=== PATIENT | female | born 1945 | race Caucasian/White ===

== ENCOUNTER 2018-03-04 13:10 | Inpatient (IN) | payer MEDICARE ==
[~2018-03-04] VITALS: Ht 160 cm; Wt 64.0 kg
[~2018-03-04 13:10] MED LIST: AMLODIPINE-ATO1 EAC6 PO; CITALOPRAM HBR20 MG PO; METOPROLOL TART50 MG PO
--- OUTSIDE RECORDS SUMMARY | 2018-03-04 13:13 | XMS REPORT | Continuity of Care Document ---
Author Author Juaquin sapna [facility] Interface Address Unknown Phone Unavailable Problems Problem Status Onset Date Classification Date Reported Comments Source M54.16 - "RADICULOPATHY, LUMBAR REGION" Active 11/21/2016 [facility] [place] LEFT BREAST PAIN Active 09/17/2012 [facility] SYMPTOMS IN BREAST NEC Active [facility] Medications Medication Details Route Status Patient Instructions Ordering Provider Order Date Source Allergies, Adverse Reactions, Alerts Substance Category Reaction Severity Reaction type Status Date Reported Comments Source Tetrix Cream Assertion Drug allergy Active [facility] [place] Immunizations Immunization Date Given Site Status Last Updated Comments Source Results Order Name Results Value Reference Range Date Interpretation Comments Source Spine lumbar wo contrast MRI Spine lumbar wo contrast MRI MRI LUMBAR SPINE WITHOUT CONTRAST 11/27/2016 1:10 PM CDT COMPARISON: 11/02/2009 radiograph exam. TECHNIQUE: Sagittal T1, sagittal T2 with fat saturation, axial T1 and axial T2 images were obtained. No intravenous gadolinium was given. FINDINGS: The conus medullaris terminates at the L1-L2 level. Lower thoracic spine ligamenta flava redundancy with mild central canal stenosis is present. T12-L1: Unremarkable. L1-L2: 3.9 mm disc bulge is seen with moderate ligamenta flava redundancy and mild central canal stenosis. Minimal bilateral foraminal stenosis due to disc osteophyte complex encroachment. L2-L3: 4 mm disc bulge with moderate thecal sac stenosis, which measures approximately 7 mm AP dimension. Mild bilateral foraminal stenosis due to disc osteophyte complex encroachment. L3-L4: 3 mm disc bulge with mild to moderate central canal stenosis. Mild left foraminal stenosis due to disc osteophyte complex encroachment with mild mass effect on left L3 exiting nerve root. L4-L5: 3 mm disc bulge with moderate ligamenta flava redundancy and moderate thecal sac stenosis. Mild bilateral foraminal stenosis. L5-S1: Moderate disc narrowing is present. 6 mm right paracentral disc extrusion is present, superimposed on the 4 mm disc bulge. Mass effect on the left S1 and S2 descending nerve roots is present. Mild central canal stenosis. Severe bilateral foraminal stenosis with mass effect on bilateral L5 nerve roots. Bilateral renal probable peripelvic cysts are present. IMPRESSION: 1. Multilevel disc degenerative disease and spondylosis. 2. L5-S1 left paracentral extrusion with mass effect on the left S1 and S2 descending nerve roots. Mild central canal stenosis. Severe bilateral foraminal stenosis as above. 3. L2-L3, L3-L4, L4-L5 mild to moderate thecal sac stenosis. Mild foraminal stenosis at these levels with mild mass effect on left L3 exiting nerve root. 11/27/2016 - - Read by: Beau Linares MD Dictated Date/time: 11/27/16 15:46 Electronically Signed by: Beau Linares MD 11/27/16 15:52 FINAL REPORT ANGEL LUIS Iqbal Breast US Breast US - BREAST US/L ULTRASOUND OF THE LEFT BREAST : 10/02/2012 CLINICAL: Pain. Comparison is made to exam dated: 10/02/2012 mammogram - [facility]. Color flow and real-time ultrasound were performed on the left breast. Rollins scale images of the real-time examination were reviewed. There is a small benign intramammary node left breast at 2 o'clock that correlates with mammography. No abnormalities were seen sonographically in the left axilla. IMPRESSION: BENIGN There is no sonographic evidence of malignancy. There is no mammographic or sonographic abnormality seen in the left breast to correspond with the pain which likely represents normal fibroglandular tissue, however clinical followup is recommended. A screening mammogram in one year is recommended. SUMMARY: Prior mammograms would be of added benefit to document [place] [facility]. This aids in establishing benignity. The patient should make additional efforts to locate her prior exams. An addendum will be made if additional films are provided. SL: 13. Radha nazario/ye:10/02/2012 13:27:16 Deli Cutter Slicer: Rachel Acharya, [facility] letter sent: Normal exam Ultrasound BI-RADS: 2 Benign 10/02/2012 - - Read by: Radha Denton Dictated Date/time: 10/02/12 13:27 Electronically Signed by: Radha Denton MD 10/02/12 13:27 FINAL REPORT [facility] Digital Mammo DX [facility] [place] Digital Mammo DX [facility] [place] - DIGITAL MAMMO DX [facility] [place] BILATERAL DIGITAL DIAGNOSTIC MAMMOGRAM WITH CAD: 10/02/2012 CLINICAL: Pain In Left Breast. Current study was evaluated with a Computer Aided Detection (CAD) system. The patient has comparison exams at an outside facility but did not bring them with her. She is requesting that they be obtained for her as she has signed a release. The tissue of both breasts is predominantly fatty. There is a benign calcification in the right breast. There also is a benign intramammary node in the left breast. No significant masses, calcifications, or other findings are seen in either breast. IMPRESSION: INCOMPLETE: NEEDS ADDITIONAL IMAGING EVALUATION There is no mammographic abnormality seen in the left breast to correspond with the pain, however ultrasound is recommended. SUMMARY: Prior mammograms would be of added benefit to document [place] [facility] stability. This aids in establishing benignity. The patient should make additional efforts to locate her prior exams. An addendum will be made if additional films are provided, and the patient may need to return for additional imaging. Ultrasound will be performed at this time; please see dedicated separate report. SL: 13. Radha nazario/:10/02/2012 13:27:36 Deli Cutter Slicer: Niurka Ace [facility] Mammogram BI-RADS: 0 Indeterminate 10/02/2012 - - Read by: Radha Denton Dictated Date/time: 10/02/12 13:27 Electronically Signed by: Radha Denton MD 10/02/12 13:27 FINAL REPORT [facility] Vital Signs Vital Sign Value Date Comments Source Encounters Location Location Details Encounter Type Encounter Number Reason For Visit Attending Provider ADM Date DC Date Status Source [facility] Outpatient [id number] LEFT BREAST PAIN . AMIR GHEBRANIOUS 10/02/2012 Active [facility] [place] [facility] [id number] Chucky Laya 11/27/2016 11/28/2016 ANGEL LU[facility] [place] Procedures Procedure Code Date Perfomer Comments Source
--- OUTSIDE RECORDS SUMMARY | 2018-03-04 13:14 | XMS REPORT | CCD ---
Author Author Auto Generated Organization [facility] Address Unknown Phone Unavailable Care Team Providers Care Arts And Crafts Teacher Name Role Phone Gina Chow RP Allergies, Adverse Reactions, Alerts Substance Reaction Status Tetrix Cream Active
--- OUTSIDE RECORDS SUMMARY | 2018-03-04 13:14 | XMS REPORT | Summary of Care ---
Author Author [facility] [place] Organization [facility] [place] Address Unknown Phone Unavailable Encounter HQ Encntr_alias(FIN) [id number] Date(s): 11/27/16 - 11/27/16 [facility] [place] [address] [place] [phone] Discharge Disposition: Home or Self Care Attending Physician: Chucky Asif MD Vital Signs No data available for this section Problem List No data available for this section Allergies, Adverse Reactions, Alerts Substance Reaction Severity Status Tetrix Cream Active Medications No data available for this section Results No data available for this section Immunizations No data available for this section Procedures No data available for this section Social History No data available for this section Assessment and Plan No data available for this section
--- OUTSIDE RECORDS SUMMARY | 2018-03-04 13:14 | XMS REPORT ---
Author [facility] Address Unknown Phone Unavailable Care Team Providers Care Senior Network Architect Name Role Phone Lorenzo SIU Unavailable Unavailable Problems This patient has no known problems. Allergies, Adverse Reactions, Alerts This patient has no known allergies or adverse reactions. Medications This patient has no known medications. Results Test Description Test Time Test Comments Text Results Atomic Results Result Comments CT MAX/FAC.PARANASAL SINUS WO 2017-11-06 07:29:00 [facility] [address] [place], [place] [address] Patient Name: FLAVIO RUANO MR #: [id number] : 1945 Age/Sex: 72/F Req #: [id number] Adm Physician: Ordered by: TEA SIU MD Report #: [id number] Location: [facility] Room/Bed: Procedure: [id number] HOPD/CT MAX/FAC.PARANASAL SINUS WO Exam Date: 11/05/17 Exam Time: 1708 REPORT STATUS: Signed Examination: CT Face without Contrast History:Facial injury Comparison studies: None Technique: Axial images were obtained through the maxillofacial region. Coronal and sagittal reconstructions obtained from the axial data. Dose modulation, iterative reconstruction, and/or weight based adjustment of the mA/kV was utilized to reduce the radiation dose to as low as reasonably achievable. Intravenous contrast: None Findings: Soft tissues: Moderate-sized right periorbital and premalar hematoma. Bones: No fractures or bony abnormalities. Orbits: Globes: Intact Extra or intraconal abnormalities: None. Paranasal sinuses: Clear. IMPRESSION: 1. No acute facial abnormality. 2. Moderate size right periorbital and premalar hematoma. A preliminary verbal report was provided by Dr. Herrera to Dr. Siu on November 05, 2017 at 1610 hours. Signed by: Dr. Lisset Herrera M.D. on 11/06/2017 7:34 AM Dictated By: LISSET GOODWIN MD 3 Transcribed By: SANTIAGO on 11/06/17733 COPY TO: TEA SIU MD [facility] 2017-11-06 07:27:00 [place] [address] Patient Name: FLAVIO RUANO MR #: [id number] : 1945 Age/Sex: 72/F Req #: [id number] Adm Physician: Ordered by: TEA SIU MD Report #: [id number] Location: [facility] Room/Bed: Procedure: [id number] [facility] Exam Date: 11/05/17 Exam Time: 1708 REPORT STATUS: Signed Examination: CT head without contrast Clinical Indication: Head and face injury. Technique: Transaxial noncontrast images from the skull base through the vertex were obtained. Sagittal and coronal reformatted images were done. Dose modulation, iterative reconstruction, and/or weight based adjustment of the mA/kV was utilized to reduce the radiation dose to as low as reasonably achievable. Comparison: None. Findings: Scalp: No abnormalities. Bones: Intact. No fractures. No blastic or lytic lesions. Brain sulci: Appropriate for patient's age. Ventricles: Normal in size and configuration. No hydrocephalus. Extra-axial space: No abnormalities. Parenchyma: Again demonstrated are mild confluent areas of hypoattenuation in the periventricular and subcortical white matter, nonspe cific. No masses, hemorrhage, or acute or chronic cortical based vascular insults. Suprasellar region: No abnormalities. Craniocervical junction: The foramen magnum is patent. No Chiari one malformation. Impression: 1. No acute intracranial abnormality. 2. Mild chronic microvascular ischemic change. A preliminary verbal report was provided by Dr. Herrera to Dr. Siu on November 05, 2017 at 1610 hours. Signed by: Dr. Lisset Herrera M.D. on 11/06/2017 7:29 AM Dictated By: LISSET GOODWIN MD 8 Transcribed By: SANTIAGO on 11/06/17728 COPY TO: TEA SIU MD
[2018-03-04] MEDS ORDERED: SODIUM CHLORIDE 0.9% 1000ML 1,000 ML IV STA ×2 (13:26→14:58)
--- NOTE | 2018-03-04 13:44 | NUR ---
X-ray at bedside.
--- NOTE | 2018-03-04 13:47 | NUR ---
X-ray leaves bedside.
[2018-03-04 13:49] LABS: BASOPHILS # (AUTO) 0.1 (0.0-0.1); BASOPHILS % 0.7 % (0.0-1.0); EOSINOPHILS # (AUTO) 0.2 (0.0-0.4); EOSINOPHILS % 1.9 % (0.0-6.0); HEMATOCRIT 43.6 % (34.2-44.1); HEMOGLOBIN 15.3 g/dL (12.0-16.0); LYMPHOCYTES # (AUTO) 1.4 (1.0-3.2); LYMPHOCYTES % 15.3 % (18.0-39.1); MEAN CORPUSCULAR HEMOGLOBIN 30.7 pg (28-32); MEAN CORPUSCULAR HGB CONC 35.1 g/dL (31-35); MEAN CORPUSCULAR VOLUME 87.4 fL (81-99); MONOCYTES # (AUTO) 0.6 (0.2-0.8); MONOCYTES % 6.9 % (4.4-11.3); NEUTROPHILS # (AUTO) 6.6 (2.1-6.9); NEUTROPHILS % 74.6 % (38.7-80.0); PLATELET COUNT 214 x10e3/uL (140-360); RED BLOOD COUNT 4.99 x10e6/uL (3.6-5.1); RED CELL DISTRIBUTION WIDTH 12.3 % (11.7-14.4)
[2018-03-04] MEDS: SODIUM CHLORIDE 0.9% 1000ML 1,000 ML IV SCH ×2 (13:50→19:40)
[2018-03-04 14:01] LABS: INR 0.96; PROTHROMBIN TIME 13.7 seconds (11.9-14.5)
[2018-03-04 14:02] LABS: PARTIAL THROMBOPLASTIN TIME 25.8 seconds (23.8-35.5)
--- NOTE | 2018-03-04 14:08 | Diagnostic Imaging Report ---
EXAMINATION: CHEST SINGLE (PORTABLE) COMPARISON: None FINDINGS: TUBES and LINES: None. LUNGS: Lungs are well inflated. Lungs are clear. There is no evidence of pneumonia or pulmonary edema. PLEURA: No pleural effusion or pneumothorax. HEART AND MEDIASTINUM: The cardiomediastinal silhouette is unremarkable. Atherosclerotic aortic calcifications. BONES AND SOFT TISSUES: No acute osseous lesion. Soft tissues are unremarkable. UPPER ABDOMEN: No free air under the diaphragm. IMPRESSION: No acute radiographic abnormality. Signed by: Dr. Isaias Lemon MD on 03/04/2018 2:04 PM
[2018-03-04 14:09] LABS: ALBUMIN 3.8 g/dL (3.5-5.0); ALBUMIN/GLOBULIN RATIO 1.2 (0.8-2.0); ANION GAP 14.5 mmol/L (8-16); CALCIUM 9.3 mg/dL (8.4-10.2); CREATININE, SERUM 1.1 mg/dL (0.57-1.11); MAGNESIUM 2.2 MG/DL (1.3-2.1); POTASSIUM 3.5 mmol/L (3.5-5.1)
[2018-03-04] MEDS ORDERED: METOPROLOL TARTRATE INJ 1 MG/ML VIAL ONE (14:12)
[2018-03-04 14:16] LABS: CREATINE KINASE MB 1.1 ng/mL (0-5.0)
[2018-03-04] MEDS ORDERED: METOPROLOL TARTRATE INJ 1 MG/ML VIAL IV ONE ×2 (14:30→15:15)
[2018-03-04] MEDS ORDERED: DIGOXIN INJ 0.25 MG/ML 2 ML AMP IV ONE ×4 (15:30→18:15)
[2018-03-04] MEDS ORDERED: ENOXAPARIN SODIUM INJ 100 MG/ML SYR SC SCH (15:45)
[2018-03-04] MEDS: ENOXAPARIN SOD INJ 60 MG/0.6 ML SYR SC SCH (15:54)
[2018-03-04 18:11] LABS: CLARITY,URINE CLEAR (CLEAR); COLOR,URINE YELLOW (YELLOW); LEUKOCYTE ESTERASE ,URINE NEGATIVE (NEGATIVE); NITRITE,URINE NEGATIVE (NEGATIVE)
[2018-03-04 18:12] LABS: BILIRUBIN,URINE NEGATIVE (NEGATIVE); KETONES,URINE NEGATIVE (NEGATIVE); PROTEIN,URINE DIPSTICK NEGATIVE (NEGATIVE); URINE UROBILINOGEN 0.2 mg/dL (0.2 - 1)
[2018-03-04] MEDS ORDERED: DILTIAZEM HCL 5 MG/ML 5 ML VIAL IV STA (18:27)
[2018-03-04] MEDS ORDERED: SODIUM CHLORIDE 0.9% 1000ML 1,000 ML IV SCH (18:30)
[2018-03-04 18:37] LABS: BACTERIA,URINE FEW /HPF; EPITHELIAL CELLS,URINE FEW /LPF; RBC,URINE 0-5 /HPF (0-5); WBC,URINE (MAN) 0-5 /HPF (0-5)
[2018-03-04] MEDS ORDERED: MORPHINE SULFATE 2 MG/ML SYR 1ML IV PRN (18:45)
[2018-03-04] MEDS ORDERED: AMIODARONE HCL 150MG 100 ML ONE (18:52)
--- NOTE | 2018-03-04 18:55 | NUR ---
RECEIVED PT IN BED AT THIS TIME, NO C/O PAIN/DISCOMFORT. PLAN OF CARE DISCUSSED WITH PT. AMNIODARONE LOADING DOSE ADMINISTERED AND MAINTAINANCE DRIP STARTED. RT FA PIV 20G STARTED, PT TOLERATED WELL. CALL LIGHT WITHIN REACH, ECOURAGED TO CALL FOR ASSISTANCE.
[2018-03-04] MEDS ORDERED: AMIODARONE 900MG 500 ML IV ONE (19:06)
--- NOTE | 2018-03-04 19:25 | NUR ---
ZOFRAN ADMINISTERED AT THIS TIME, PT THEW UP SMALL AMOUNT OF YELLOW EMESIS, WILL CONTINUE TO MONITOR.
[2018-03-04] MEDS: ONDANSETRON HCL INJ 2MG/ML 2ML 2 MG/ML VIAL IV PRN (19:29)
[2018-03-04] MEDS ORDERED: AMIODARONE HCL 900 MG in DEXTROSE 5% 500ML 500 ML IV SCH (19:30)
[2018-03-04] MEDS ORDERED: AMIODARONE HCL 150 MG/100 ML BAG IV ONE (19:30)
[2018-03-04] MEDS ORDERED: ATENOLOL50 MG PO (19:55)
--- NOTE | 2018-03-04 20:27 | NUR ---
REPORT CALLED TO [facility] AT THIS TIME. AWAITING BED IN ROOM.
[2018-03-04 21:00] VITALS: BP 141/69
[2018-03-04 22:50] LABS: CREATINE KINASE MB 1.8 ng/mL (0-5.0)
[2018-03-05] VITALS (21 sets, daily range): BP systolic 106–147; BP diastolic 59–113
[2018-03-05] MEDS: ONDANSETRON HCL INJ 2MG/ML 2ML 2 MG/ML VIAL IV PRN ×4 (00:30→20:36)
[2018-03-05] MEDS: METRONIDAZOLE 500MG/NS 100ML 100 ML IV SCH ×4 (00:30→17:59)
[2018-03-05] MEDS: MORPHINE SULFATE INJ 4 MG/ML INJ 1ML IV PRN ×2 (01:05→04:11)
[2018-03-05] MEDS: SODIUM CHLORIDE 0.9% 1000ML 1,000 ML IV SCH ×3 (01:33→18:36)
[2018-03-05] MEDS: ENOXAPARIN SOD INJ 60 MG/0.6 ML SYR SC SCH ×2 (04:02→15:58)
[2018-03-05 04:50] LABS: BASOPHILS % 0.3 % (0.0-1.0); EOSINOPHILS # (AUTO) 0.1 (0.0-0.4); EOSINOPHILS % 0.6 % (0.0-6.0); HEMATOCRIT 38.5 % (34.2-44.1); HEMOGLOBIN 13.3 g/dL (12.0-16.0); LYMPHOCYTES # (AUTO) 1.3 (1.0-3.2); LYMPHOCYTES % 13.2 % (18.0-39.1); MEAN CORPUSCULAR HEMOGLOBIN 30.2 pg (28-32); MEAN CORPUSCULAR HGB CONC 34.5 g/dL (31-35); MEAN CORPUSCULAR VOLUME 87.5 fL (81-99); MONOCYTES # (AUTO) 0.6 (0.2-0.8); MONOCYTES % 6.1 % (4.4-11.3); NEUTROPHILS % 79.6 % (38.7-80.0); PLATELET COUNT 158 x10e3/uL (140-360); RED CELL DISTRIBUTION WIDTH 12.1 % (11.7-14.4)
[2018-03-05 05:23] LABS: CREATINE KINASE MB 2.1 ng/mL (0-5.0)
[2018-03-05 05:43] LABS: ANION GAP 13.4 mmol/L (8-16); BLOOD UREA NITROGEN 12 mg/dL (7-26); BUN/CREATININE RATIO 16 (6-25); CALCIUM 7.7 mg/dL (8.4-10.2); CARBON DIOXIDE 19 mmol/L (22-29); CHLORIDE 109 mmol/L (98-107); CREATININE, SERUM 0.77 mg/dL (0.57-1.11); EST GLOMERULAR FILTRATION RATE > 60 ML/MIN (60-); GLUCOSE 116 mg/dL (74-118); POTASSIUM 3.4 mmol/L (3.5-5.1); SODIUM 138 mmol/L (136-145)
--- NOTE | 2018-03-05 06:21 | NUR ---
CALLED TO ENSURE DR OLIVAS WAS INFORMED OF NEW PATIENT CONSULT SPOKE TO DYLLAN THE ANSWERING SERVICE. CALLED AND LEFT MESSAGE ON ANSWERING SERVICE, NO LIVE PERSON I SPOKE TO. WILL INFORM ONCOMING NURSE TO MAKE SURE MESSAGE FOR CONSULT TO DR WANG WAS RECEIVED
--- NOTE | 2018-03-05 06:30 | NUR ---
DR ANABELLE SOTO ROUNDED. VERBAL ORDER GIVEN TO ME AND ORDER WAS READ BACK. LOPRESSOR 25MG PO Q6H AND LOPRESSOR 5MG IV Q2H PRN FOR HEART RATE GREATER THAN 120
--- NOTE | 2018-03-05 06:38 | Diagnostic Imaging Report ---
EXAMINATION: CHEST SINGLE (PORTABLE) COMPARISON: 03/04/2018 INDICATION: Chest burning. FINDINGS: TUBES and LINES: None. LUNGS: Lungs are well inflated. Lungs are clear. There is no evidence of pneumonia or pulmonary edema. PLEURA: No pleural effusion or pneumothorax. HEART AND MEDIASTINUM: The cardiomediastinal silhouette is unremarkable. Atherosclerotic aortic calcifications. BONES AND SOFT TISSUES: No acute osseous lesion. Lower cervical fusion hardware. Soft tissues are unremarkable. UPPER ABDOMEN: No free air under the diaphragm. Eventration of the right hemidiaphragm, stable. Cholecystectomy clips. IMPRESSION: No acute radiographic abnormality. Signed by: DR. Patricio Ohara MD on 03/05/2018 6:35 AM
[2018-03-05 07:08] LABS: CHOL/HDL RATIO 3.6 (3.0-3.6)
[2018-03-05] MEDS ORDERED: DIATRIZOATE MEGL/DIATRIZOA SOD 30 ML BTL PO ONE (07:41)
--- NOTE | 2018-03-05 07:47 | NUR ---
SEE CHART FOR A PRINT OUT OF PATIENTs VITAL SIGNS
[2018-03-05] MEDS: METOPROLOL TARTRATE INJ 1 MG/ML VIAL IV PRN ×3 (08:36→20:49)
[2018-03-05] MEDS: FAMOTIDINE 20 MG/2 ML VIAL IV SCH ×2 (09:00→17:29)
[2018-03-05] MEDS: ASPIRIN 81 MG ENTERIC COATED PO SCH (09:00)
--- NOTE | 2018-03-05 09:54 | History and Physical ---
PRIMARY CARE PHYSICIAN: . CHIEF COMPLAINT: Burning symptoms in the chest wall. HISTORY OF PRESENT ILLNESS: This is a 73-year-old woman with a history of atrial fibrillation, now developing burning sensation in her mid chest region and continued diarrhea for the past 3 weeks. Her last colonoscopy was in 2015 at which time they found diverticulosis, colitis and polyps. The patient now admitted for further evaluation and management. Found to be in AFib with RVR here and started on medication regimen. Placed in the ICU. PAST MEDICAL HISTORY: Hypertension, atrial fibrillation, spinal stenosis, diverticulosis, colitis, colonic polyps, status post polypectomy, IBS. PAST SURGICAL HISTORY: Polypectomy, cholecystectomy, hysterectomy, right shoulder rotator cuff repair, tonsillectomy. ALLERGIES: PER ELECTRONIC MEDICAL RECORD. SOCIAL HISTORY: The patient is . No alcohol, illicit or cigarettes. MEDICATIONS: Per electronic medical record. REVIEW OF SYSTEMS: Denies any fever, chills or sweats. Denies any nausea or vomiting. Denies any headache, vision change, or skin rash. PHYSICAL EXAMINATION VITAL SIGNS: Reviewed. GENERAL: A tired appearing woman, resting in bed. HEENT: Anicteric. Pupils reactive to light. No oral lesions. CARDIOVASCULAR: Normal S1, S2. Rapid heart rate. LUNGS: Bilateral breath sounds. ABDOMEN: Soft, nondistended. She has mild tenderness in left lower quadrant. No rebound or guarding. EXTREMITIES: No edema or calf tenderness. NEUROLOGICAL: Alert and oriented times 3. Moving all extremities. SKIN: Dry. PSYCHIATRY: Normal affect. LABS: Reviewed. MEDICATIONS: Reviewed. ASSESSMENT: This is a 73-year-old woman with: 1. Atrial fibrillation with rapid ventricular response. 2. Chronic diarrhea. 3. Irritable bowel syndrome. 4. Acute kidney injury. 5. Hypokalemia. 6. Dehydration. 7. Hyperlipidemia. PLAN 1. Rate and rhythm control on medication. 2. Cardiology consultation. 3. Obtain CT scan of the abdomen and pelvis to evaluate for possible colitis. 4. Obtain stool for C. diff. 5. Rehydrate the patient. 6. Replace electrolytes. 7. Continue treatment for AFib with Lovenox and amiodarone. Add beta pema. 8. Continue Pepcid for GI prophylaxis. DISPOSITION: Follow up CT scan abdomen and pelvis. Rate control. Follow up cardiology recommendations. CRITICAL CARE TIME: More than 35 minutes. Job#: [id number] GE
[2018-03-05] MEDS: METOPROLOL TARTRATE 25 MG TAB PO SCH ×2 (12:00→18:00)
--- NOTE | 2018-03-05 12:51 | NUR ---
CASE MANAGEMENT INITIAL ASSESSMENT Waiter/Waitress Cabin Class to bedside to discuss plan of care with patient/family. CM/SW role and care transitions discussed. Anticipated discharge plan discussed along with duration of care. CM/SW discussed patients right to make decisions in care. CM/SW work hours given. Patient lives: Admit/Transfer: ER POA/Emergency contact: KAITLIN THOMPSON [phone] Current/Previous Home Health: NONE PCP/Follow-up Care: DR SOTO Current/Previous DME: NONE Other Services: NONE Employment Status: RETIRED Areas of Concerns: CARING FOR HER Referral Needs: NONE Education Needs: NONE IMM/ORTIZ given and signed (if applicable): ON ADMIT Goal for discharge:DC HOME SOON POSSIBLE TO CARE FOR CM/SW left business card at the bedside with contact information. Name and number was also written on the patients whiteboard. Patient verbalized understanding of discussion. CM will follow-up with ongoing discharge and transition of care needs.
[2018-03-05] MEDS ORDERED: IOPAMIDOL 370 MG/ML 200 ML INFUS..BTL INJ ONE (14:41)
[2018-03-05] MEDS ORDERED: SODIUM CHLORIDE 0.9% 50ML 50 ML ONE (14:41)
[2018-03-05 14:49] LABS: OCCULT BLOOD STOOL NEGATIVE (NEGATIVE)
[2018-03-05 15:21] LABS: CREATINE KINASE MB 3.1 ng/mL (0-5.0)
--- NOTE | 2018-03-05 15:41 | Diagnostic Imaging Report ---
ADDENDUM #1 ADDENDUM: Dose modulation, iterative reconstruction, and/or weight based adjustment of the mA/kV was utilized to reduce the radiation dose to as low as reasonably achievable. Signed by: Dr. Isaias Lemon MD on 03/05/2018 5:24 PM ORIGINAL REPORT EXAM: CT Abdomen and Pelvis WITH contrast INDICATION: Query colitis. COMPARISON: None. TECHNIQUE: Abdomen and pelvis were scanned utilizing a multidetector helical scanner from the lung base to the pubic symphysis after administration of IV contrast. Coronal and sagittal reformations were obtained. Routine protocol was performed. Scan was performed when during portal venous phase. IV CONTRAST: 100 mL of Isovue 370. ORAL CONTRAST: Water COMPLICATIONS: None RADIATION DOSE: Total DLP: 331.5 mGy*cm CTDIvol has been reviewed. It is below the limits set by the Radiation Protocol Committee (RPC). FINDINGS: LINES and TUBES: None. LOWER THORAX: Unremarkable HEPATOBILIARY: No evidence of focal lesion. There is intra- and extra- hepatic biliary dilation likely post cholecystectomy reservoir effect. SPLEEN: No splenomegaly. PANCREAS: No focal masses or ductal dilatation. ADRENALS: No adrenal nodules KIDNEYS/URETERS: Kidneys enhance symmetrically. There is mild right and moderate left hydronephrosis. No evidence of stone or solid mass. Subcentimeter bilateral renal hypodensities are too small to characterize, but likely represent cysts. GI TRACT: No evidence of wall thickening or distension. Appendix is normal. PELVIC ORGANS/BLADDER: Unremarkable. LYMPH NODES: No lymphadenopathy. VESSELS: Extensive atherosclerotic changes of the dominant aorta and branch vessels. There is a separate origin of the common hepatic artery and the splenic artery arising from the aorta. PERITONEUM / RETROPERITONEUM: No free air or fluid. BONES AND SOFT TISSUES: Degenerative changes of visualized spine without suspicious lytic or blastic lesions. CONCLUSION: No evidence of colitis. Mild right and moderate left hydronephrosis. No evidence of stone. Signed by: Dr. Isaias Lemon MD on 03/05/2018 3:38 PM
--- NOTE | 2018-03-05 17:03 | Consultation ---
DATE OF CONSULTATION: March 05, 2018 CARDIOLOGY CONSULTATION REASON FOR CONSULTATION: AFib with RVR. CHIEF COMPLAINT: Diarrhea. HISTORY OF PRESENT ILLNESS: Patient is a 73-year-old female with history of atrial fibrillation. Not on anticoagulation who has been having abdominal pain and diarrhea for the past several weeks. Patient finally presented for further management and admission due to ongoing diarrhea that is not showing any signs of improvement. Denies any fevers, chills, chest pain or heart failure symptoms. Patient was found to be an AFib with RVR with heart rates in the 150s and higher. Patient says that she has been told in the past that she has atrial fibrillation but was not taking any medications for this. PAST MEDICAL HISTORY 1. Hypertension. 2. Atrial fibrillation. 3. Spinal stenosis. 4. Diverticulitis. 5. Colitis. 6. Colonic polyps. 7. Inflammatory bowel disease. PAST SURGICAL HISTORY 1. Polypectomy. 2. Cholecystectomy. 3. Hysterectomy. 4. Tonsillectomy. SOCIAL HISTORY: Does not smoke, drink or use illicit drugs. FAMILY HISTORY: No family history of early CAD or sudden cardiac . OUTPATIENT MEDICATIONS: Reviewed. REVIEW OF SYSTEMS: Ten point review of systems was performed and is negative other than what is mentioned in history of present illness. PHYSICAL EXAMINATION: VITALS: Temperature 97.7, pulse 132, respiratory rate 17, blood pressure 119/77, satting 96% on room air. GENERAL: Elderly white female in no acute distress. Ill-appearing. CARDIOVASCULAR: Tachycardic, irregular. No murmurs, rubs, or gallops. Palpable carotid pulses. Palpable radial pulses. No lower extremity edema or varicosities. RESPIRATORY: Lungs are clear to auscultation bilaterally. ABDOMEN: Soft, mildly tender diffusely, nondistended. NEURO AND PSYCH: Alert and oriented to person, place, and time. Normal affect. INPATIENT MEDICATIONS: Reviewed. LABORATORY DATA: Reviewed. Troponins negative x2. IMAGING DATA: Reviewed. Chest x-ray shows no acute thoracic abnormality. A CT abdomen and pelvis is pending. TELEMETRY DATA: Reviewed. Shows atrial fibrillation with RVR with heart rates in the 140s to 160s. ASSESSMENT AND PLAN: Atrial fibrillation with rapid ventricular response. Continue intravenous amiodarone and intravenous metoprolol. Patient started on metoprolol 25 mg p.o. q.6 hours. Echocardiogram ordered and is pending. Patient is on intravenous Lovenox, therapeutic dose, for anticoagulation. Will need long-term anticoagulation once rate controlled is achieved and all procedures are completed. Thank you for this consult. Will continue to follow. Job#: [id number] KHURRAM
[2018-03-05] MEDS ORDERED: POTASSIUM CHLORIDE 20 MEQ TAB CR PO STA (17:54)
[2018-03-05] MEDS ORDERED: AMIODARONE HCL 900 MG in DEXTROSE 5% 500ML 500 ML IV SCH (18:00)
--- NOTE | 2018-03-05 18:00 | NUR ---
Dr. Alberto Limon called regarding persistent heart rate in 130's and new orders received to increase Amiodarone drip to 1mg/hr. Will continue to monitor.
--- NOTE | 2018-03-05 20:03 | NUR ---
Results of CT ABD read to Dr. Julian, no new orders regarding CT. New orders received for anxiety per pt request.
[2018-03-05] MEDS ORDERED: ALPRAZOLAM 0.25 MG TAB PO PRN (20:15)
[2018-03-05] MEDS ORDERED: BISACODYL 5 MG TAB EC PO ONE (23:45)
[2018-03-06] VITALS (21 sets, daily range): BP systolic 122–158; BP diastolic 63–110
[2018-03-06] MEDS: METOPROLOL TARTRATE 25 MG TAB PO SCH ×3 (00:12→18:00)
[2018-03-06] MEDS: METRONIDAZOLE 500MG/NS 100ML 100 ML IV SCH ×4 (00:12→18:00)
[2018-03-06] MEDS ORDERED: BISACODYL 5 MG TAB EC PO ONE ×3 (00:30→01:30)
[2018-03-06] MEDS: SODIUM CHLORIDE 0.9% 1000ML 1,000 ML IV SCH ×3 (00:55→18:36)
[2018-03-06] MEDS ORDERED: CITRATE OF MAGNESIA 300ML BOTTLE PO ONE ×2 (01:00→05:00)
[2018-03-06] MEDS: ENOXAPARIN SOD INJ 60 MG/0.6 ML SYR SC SCH ×2 (02:36→16:00)
[2018-03-06] MEDS: METOPROLOL TARTRATE INJ 1 MG/ML VIAL IV PRN (03:40)
[2018-03-06 04:46] LABS: BASOPHILS # (AUTO) 0.1 (0.0-0.1); BASOPHILS % 0.5 % (0.0-1.0); EOSINOPHILS # (AUTO) 0.1 (0.0-0.4); EOSINOPHILS % 1.4 % (0.0-6.0); HEMATOCRIT 37.3 % (34.2-44.1); HEMOGLOBIN 13.4 g/dL (12.0-16.0); LYMPHOCYTES # (AUTO) 1.3 (1.0-3.2); LYMPHOCYTES % 13.9 % (18.0-39.1); MEAN CORPUSCULAR HEMOGLOBIN 30.6 pg (28-32); MEAN CORPUSCULAR HGB CONC 35.9 g/dL (31-35); MEAN CORPUSCULAR VOLUME 85.2 fL (81-99); MONOCYTES # (AUTO) 0.8 (0.2-0.8); MONOCYTES % 8.2 % (4.4-11.3); NEUTROPHILS % 75.5 % (38.7-80.0); PLATELET COUNT 157 x10e3/uL (140-360); RED BLOOD COUNT 4.38 x10e6/uL (3.6-5.1)
[2018-03-06 05:11] LABS: BLOOD UREA NITROGEN 5 mg/dL (7-26); BUN/CREATININE RATIO 7 (6-25); CARBON DIOXIDE 20 mmol/L (22-29); CHLORIDE 105 mmol/L (98-107); CREATININE, SERUM 0.72 mg/dL (0.57-1.11); EST GLOMERULAR FILTRATION RATE > 60 ML/MIN (60-); GLUCOSE 112 mg/dL (74-118); SODIUM 133 mmol/L (136-145)
[2018-03-06] MEDS ORDERED: POTASSIUM CHLORIDE 20MEQ/100ML 200 ML IV ONE (06:45)
--- NOTE | 2018-03-06 07:14 | NUR ---
IM- Progress Note O/N; no events REVIEW OF SYSTEMS: Denies any fever, chills or sweats. Denies any nausea or vomiting. Denies any headache, vision change, or skin rash. PHYSICAL EXAMINATION VITAL SIGNS: Reviewed. GENERAL: A tired appearing woman, resting in bed. HEENT: Anicteric. Pupils reactive to light. No oral lesions. CARDIOVASCULAR: Normal S1, S2. Rapid heart rate. LUNGS: Bilateral breath sounds. ABDOMEN: Soft, nondistended. She has mild tenderness in left lower quadrant. No rebound or guarding. EXTREMITIES: No edema or calf tenderness. NEUROLOGICAL: Alert and oriented times 3. Moving all extremities. SKIN: Dry. PSYCHIATRY: Normal affect. LABS: Reviewed. MEDICATIONS: Reviewed. ASSESSMENT: This is a 73-year-old woman with: 1. Atrial fibrillation with rapid ventricular response. 2. Chronic diarrhea. 3. Irritable bowel syndrome. 4. Acute kidney injury. 5. Hypokalemia. 6. Dehydration. 7. Hyperlipidemia. PLAN 1. Rate and rhythm control on medication. 2. Cardiology consultation. 3. Obtain CT scan of the abdomen and pelvis to evaluate for possible colitis. 4. Obtain stool for C. diff. 5. Rehydrate the patient. 6. Replace electrolytes. 7. Continue treatment for AFib with Lovenox and amiodarone. Add beta pema. 8. Continue Pepcid for GI prophylaxis. DISPOSITION: Follow up CT scan abdomen and pelvis. Rate control. Follow up cardiology recommendations. CRITICAL CARE TIME: More than 35 minutes. 03/06/18 CT no colitis; replace K; endoscopy pending; f/u echo. Bryn Julian MD, PhD.
[2018-03-06] MEDS: POTASSIUM CHLORIDE 20MEQ/100ML 100 ML IV SCH ×2 (08:30→10:00)
[2018-03-06] MEDS: ASPIRIN 81 MG ENTERIC COATED PO SCH (09:00)
[2018-03-06] MEDS: DULOXETINE HCL 30 MG DELAYED RELEASE PO SCH (09:00)
[2018-03-06] MEDS: FAMOTIDINE 20 MG/2 ML VIAL IV SCH ×2 (09:34→17:01)
[2018-03-06 10:03] LABS: C DIFFICILE TOXIN A&B AMP PROB NEGATIVE (NEGATIVE)
[2018-03-06] MEDS: BISACODYL 5 MG TAB EC PO SCH ×3 (14:00→21:33)
[2018-03-06 16:52] LABS: ANION GAP 11.1 mmol/L (8-16); BLOOD UREA NITROGEN < 5 mg/dL (7-26); CALCIUM 8.2 mg/dL (8.4-10.2); CARBON DIOXIDE 18 mmol/L (22-29); CHLORIDE 109 mmol/L (98-107); CREATININE, SERUM 0.75 mg/dL (0.57-1.11); EST GLOMERULAR FILTRATION RATE > 60 ML/MIN (60-); GLUCOSE 114 mg/dL (74-118); POTASSIUM 3.1 mmol/L (3.5-5.1); SODIUM 135 mmol/L (136-145)
[2018-03-06 16:54] LABS: BUN/CREATININE RATIO 7 (6-25)
[2018-03-06] MEDS ORDERED: POTASSIUM CHLORIDE 20MEQ/100ML 400 ML IV ONE (19:30)
--- NOTE | 2018-03-06 19:30 | NUR ---
Received patient stable, due for a colonoscopy tomorrow, no complaints raised, diarrhea still murky
--- NOTE | 2018-03-06 21:43 | Progress Note ---
DATE: March 06, 2018 CARDIOLOGY PROGRESS NOTE SUBJECTIVE: No major events overnight. Ongoing colonoscopy prep. OBJECTIVE: VITAL SIGNS: Temperature afebrile, pulse 70, respiratory rate 20, blood pressure 130/91, satting 96% on room air. GENERAL: Elderly female in no acute distress. CARDIOVASCULAR: Regular rate and rhythm. No murmurs, rubs, or gallops. LUNGS: Clear to auscultation bilaterally. ABDOMEN: Soft, nontender, nondistended. NEURO AND PSYCH: Alert and oriented to person, place, and time. Normal affect. INPATIENT MEDICATIONS: Reviewed. LABORATORY DATA: Reviewed. IMAGING DATA: Reviewed. TELEMETRY DATA: Reviewed, intermittently converting to sinus rhythm. ASSESSMENT: Atrial fibrillation with rapid ventricular response. PLAN: Continue IV amiodarone for now. Increase oral metoprolol to 50 mg q.6h. Echocardiogram reviewed, shows normal LV function. Based on the normal echo and nonischemic EKG, patient will be low risk for colonoscopy procedure from a cardiovascular standpoint. Thank you for this consult. Will continue to follow. Job#: [id number]
[2018-03-07] VITALS (15 sets, daily range): BP systolic 120–163; BP diastolic 56–82
--- NOTE | 2018-03-07 02:00 | NUR ---
Reviewed by dr Hernandez, suggested that patient would be able to go for a colonoscopy , but would need an enema prior to the procedure, patient aware. Last dose of Dulcolax administered
[2018-03-07] MEDS: BISACODYL 5 MG TAB EC PO SCH (02:25)
[2018-03-07] MEDS: SODIUM CHLORIDE 0.9% 1000ML 1,000 ML IV SCH ×3 (02:36→21:03)
[2018-03-07] MEDS: ENOXAPARIN SOD INJ 60 MG/0.6 ML SYR SC SCH ×2 (03:45→12:18)
[2018-03-07] MEDS: METOPROLOL TARTRATE 25 MG TAB PO SCH ×3 (06:00→12:19)
[2018-03-07] MEDS: METRONIDAZOLE 500MG/NS 100ML 100 ML IV SCH ×4 (06:00→19:19)
--- NOTE | 2018-03-07 06:00 | NUR ---
Last dose of potassium administered, repeat bmp done, patient stable, diarrhea clear but with sediments, remains on normal saline drip at 125mls/hr
[2018-03-07 06:57] LABS: ANION GAP 12.1 mmol/L (8-16); BLOOD UREA NITROGEN 5 mg/dL (7-26); BUN/CREATININE RATIO 7 (6-25); CARBON DIOXIDE 18 mmol/L (22-29); CHLORIDE 112 mmol/L (98-107); CREATININE, SERUM 0.74 mg/dL (0.57-1.11); EST GLOMERULAR FILTRATION RATE > 60 ML/MIN (60-); GLUCOSE 85 mg/dL (74-118); POTASSIUM 4.1 mmol/L (3.5-5.1); SODIUM 138 mmol/L (136-145)
--- NOTE | 2018-03-07 07:10 | NUR ---
received a call from the OR, relayed the message regarding Patient needing and Enema, awaiting a call back on the way forward. Patient handed over to incoming nurse Danna leung
--- NOTE | 2018-03-07 07:19 | NUR ---
Spoke with Dr Emily Hernandez; requests tap water enema now.
--- NOTE | 2018-03-07 07:41 | NUR ---
IM- Progress Note O/N; no events REVIEW OF SYSTEMS: Denies any fever, chills or sweats. Denies any nausea or vomiting. Denies any headache, vision change, or skin rash. PHYSICAL EXAMINATION VITAL SIGNS: Reviewed. GENERAL: A tired appearing woman, resting in bed. HEENT: Anicteric. Pupils reactive to light. No oral lesions. CARDIOVASCULAR: Normal S1, S2. Rapid heart rate. LUNGS: Bilateral breath sounds. ABDOMEN: Soft, nondistended. She has mild tenderness in left lower quadrant. No rebound or guarding. EXTREMITIES: No edema or calf tenderness. NEUROLOGICAL: Alert and oriented times 3. Moving all extremities. SKIN: Dry. PSYCHIATRY: Normal affect. LABS: Reviewed. MEDICATIONS: Reviewed. ASSESSMENT: This is a 73-year-old woman with: 1. Atrial fibrillation with rapid ventricular response. 2. Chronic diarrhea. 3. Irritable bowel syndrome. 4. Acute kidney injury. 5. Hypokalemia. 6. Dehydration. 7. Hyperlipidemia. PLAN 1. Rate and rhythm control on medication. 2. Cardiology consultation. 3. Obtain CT scan of the abdomen and pelvis to evaluate for possible colitis. 4. Obtain stool for C. diff. 5. Rehydrate the patient. 6. Replace electrolytes. 7. Continue treatment for AFib with Lovenox and amiodarone. Add beta pema. 8. Continue Pepcid for GI prophylaxis. DISPOSITION: Follow up CT scan abdomen and pelvis. Rate control. Follow up cardiology recommendations. CRITICAL CARE TIME: More than 35 minutes. 03/06/18 CT no colitis; replace K; endoscopy pending; f/u echo. 03/07 echo normal LVEF; f/u endoscopy. HR better controlled; d/w daughter at bedside. Bryn Julian MD, PhD.
[2018-03-07] MEDS: ASPIRIN 81 MG ENTERIC COATED PO SCH (09:00)
[2018-03-07] MEDS: FAMOTIDINE 20 MG/2 ML VIAL IV SCH ×2 (09:29→16:24)
--- NOTE | 2018-03-07 09:45 | NUR ---
Patient to OR for colonoscopy via bed.
--- NOTE | 2018-03-07 11:37 | Operative Report ---
DATE OF PROCEDURE: March 07, 2018 REFERRING PHYSICIAN: Dr. Anabelle Soto. PROCEDURE PERFORMED: Colonoscopy with biopsies. INDICATIONS FOR COLONOSCOPY: Chronic diarrhea, fecal incontinence. MEDICATION: Patient was done under MAC. Please see anesthesiologist's note. PROCEDURE: Patient in left lateral decubitus position, a flexible fiberoptic Olympus colonoscope was inserted into the rectum with ease and advanced all the way to the cecum. Mucosa overlying the cecum appeared to be within normal limits. The ileocecal valve was intubated and the scope was advanced into the terminal ileum. Biopsies were obtained. The scope was then withdrawn back into the colon. It was then withdrawn slowly. Mucosa overlying the ascending, transverse revealed some patchy areas of erythema. The mucosa overlying the left colon revealed some patchy erythema and moderate edema and random biopsies were obtained and sent to stain for H. pylori. Diverticular disease was noted in the sigmoid colon. Similar mild inflammatory changes were noted in the rectum and biopsies were obtained. The scope was then retroflexed into the distal rectum and small internal hemorrhoids were noted, none of which was actively bleeding. The scope was then straightened out. It was subsequently withdrawn after securing an adequate stool specimen that was sent for the appropriate stool studies. Patient tolerated the procedure well. IMPRESSIONS 1. Mild patchy colitis, more prominent in left colon. Random biopsies were obtained. 2. Diverticulosis. 3. Proctitis, mild. 4. Internal hemorrhoids, none actively bleeding. PLAN: Follow up histology. Follow up stool studies. Initiate Bentyl 20 mg 1 p.o. t.i.d. Colestid 1 g p.o. daily. Job#: [id number] TA cc:ANABELLE SOTO MD,
[2018-03-07] MEDS: DULOXETINE HCL 30 MG DELAYED RELEASE PO SCH (12:14)
--- NOTE | 2018-03-07 13:53 | NUR ---
Per kavita Barclay to transfer to Med Surg with telemetry.
[2018-03-07 13:54] LABS: C DIFFICILE TOXIN A&B AMP PROB NEGATIVE (NEGATIVE); WBC,FECAL (FECAL LACTOFERRIN) NEGATIVE (NEGATIVE)
[2018-03-07] MEDS ORDERED: MIDAZOLAM HCL 2 MG/2 ML VIAL ONE (14:46)
[2018-03-07] MEDS ORDERED: KETAMINE HCL INJ 50 MG/ML 10 ML VIAL ONE (14:46)
--- NOTE | 2018-03-07 15:51 | Progress Note ---
DATE: March 07, 2018 CARDIOLOGY PROGRESS NOTE SUBJECTIVE: No major events overnight. Had a colonoscopy this morning that showed patchy colitis. Biopsies were taken. OBJECTIVE CARDIOVASCULAR: Regular rate and rhythm. No murmurs, rubs or gallops. Palpable carotid pulses. Palpable radial pulses. LUNGS: Clear to auscultation bilaterally. ABDOMEN: Soft, nontender, nondistended. NEURO AND PSYCH: Alert and oriented to person, place, and time. Normal affect. LABORATORY DATA: Reviewed. INPATIENT MEDICATIONS: Reviewed. IMAGING DATA: Reviewed. TELEMETRY DATA: Reviewed. Shows normal sinus rhythm now. ASSESSMENT: Atrial fibrillation with rapid ventricular response, now in sinus rhythm. PLAN: Will chemical cell changer to oral amiodarone. Consolidate oral beta blockers into once-a-day dosing. Given the patient had biopsy this morning, will wait to restart her Xarelto for anticoagulation starting tomorrow evening. Thank you for this consult. Will continue to follow. Job#: [id number]
[2018-03-07] MEDS: AMIODARONE HCL 200 MG TAB PO SCH (16:24)
--- NOTE | 2018-03-07 19:23 | NUR ---
Bedside report to RAFY Root.
--- NOTE | 2018-03-07 22:13 | NUR ---
Transferred patient to room 109 with all of patient belongings. Pt at baseline orientation with no signs of acute distress. Report given to Tara HILLMAN.
--- NOTE | 2018-03-07 22:50 | NUR ---
Pt rec'd to room 109 in stable condition. IVF infusing at 125mL/hr. Pt denies any c/o at this time. POC discussed. Safety measures intact. Call light in reach with instructions to call for assistance.
[2018-03-08] MEDS: METRONIDAZOLE 500MG/NS 100ML 100 ML IV SCH ×4 (00:51→17:23)
[2018-03-08 01:30] VITALS: BP 142/63
[2018-03-08] MEDS: SODIUM CHLORIDE 0.9% 1000ML 1,000 ML IV SCH (01:51)
[2018-03-08 05:30] VITALS: BP 117/60
[2018-03-08 07:58] VITALS: BP 150/67
[2018-03-08 08:00] VITALS: BP 156/67
[2018-03-08] MEDS: AMIODARONE HCL 200 MG TAB PO SCH (08:44)
[2018-03-08] MEDS: FAMOTIDINE 20 MG/2 ML VIAL IV SCH ×2 (08:44→17:23)
[2018-03-08] MEDS: DULOXETINE HCL 30 MG DELAYED RELEASE PO SCH (08:44)
[2018-03-08] MEDS: ASPIRIN 81 MG ENTERIC COATED PO SCH (08:44)
[2018-03-08] MEDS ORDERED: METOPROLOL SUCCINATE 50 MG TAB XL PO SCH (09:00)
--- NOTE | 2018-03-08 10:52 | NUR ---
Discharge summary Principal Dx: ASSESSMENT: This is a 73-year-old woman with: 1. Atrial fibrillation with rapid ventricular response. 2. Chronic diarrhea. 3. Irritable bowel syndrome. 4. Acute kidney injury. 5. Hypokalemia. 6. Dehydration. 7. Hyperlipidemia. Secondary Dx: 1.chr diarrhea cc and HPI; refer to H&P Hospital Course: ASSESSMENT: This is a 73-year-old woman with: 1. Atrial fibrillation with rapid ventricular response. 2. Chronic diarrhea. 3. Irritable bowel syndrome. 4. Acute kidney injury. 5. Hypokalemia. 6. Dehydration. 7. Hyperlipidemia. PLAN 1. Rate and rhythm control on medication. 2. Cardiology consultation. 3. Obtain CT scan of the abdomen and pelvis to evaluate for possible colitis. 4. Obtain stool for C. diff. 5. Rehydrate the patient. 6. Replace electrolytes. 7. Continue treatment for AFib with Lovenox and amiodarone. Add beta pema. 8. Continue Pepcid for GI prophylaxis. DISPOSITION: Follow up CT scan abdomen and pelvis. Rate control. Follow up cardiology recommendations. CRITICAL CARE TIME: More than 35 minutes. 03/06/18 CT no colitis; replace K; endoscopy pending; f/u echo. 03/07 echo normal LVEF; f/u endoscopy. HR better controlled; d/w daughter at bedside. 03/08 medical tx; HR controlled; endoscopy report. Systolic CHF LVEF 40-45%; Endoscopy shows mild colitis most in left colon, Diverticulosis, Proctitis-mild, and internal hemorrhoids-not bleeding; Now started on eliquis; d/c home. Bryn Julian MD, PhD.
[2018-03-08 13:08] VITALS: BP 136/56
[2018-03-08] MEDS ORDERED: PROPOFOL IV EMULSION 10 MG/ML 50 ML VIAL ONE (15:25)
[2018-03-08] MEDS ORDERED: LIDOCAINE HCL 2% LOCAL INJ 5 ML SDV VIAL INJ ONE (15:25)
[2018-03-08 16:31] VITALS: BP 128/62
[2018-03-08] MEDS ORDERED: RIVAROXABAN 20 MG TABLET PO SCH ×3 (17:00)
[2018-03-08] MEDS ORDERED: ASPIRIN EC81 MG PO (17:50)
[2018-03-08] MEDS ORDERED: AMIODARONE HCL200 MG PO (17:50)
[2018-03-08] MEDS ORDERED: TOPROL XL50 MG PO (17:50)
[2018-03-08] MEDS ORDERED: CYMBALTA30 MG PO (17:50)
[2018-03-08] MEDS ORDERED: XARELTO10 MG PO (17:50)
[2018-03-08] MEDS ORDERED: SENNOSIDES8.6 MG PO (17:50)
[2018-03-08] MEDS ORDERED: MIRALAX17 GM PO (17:50)
[2018-03-08] MEDS ORDERED: PANTOPRAZOLE SO40 MG PO (17:50)
--- NOTE | 2018-03-08 18:11 | NUR ---
ADDENDUM to D/C summary: d/c location: home d/c time>35mins d/c condition: stable f/u pcp and GI and cardio 1 week. Bryn Julian MD, PhD.
--- NOTE | 2018-03-08 19:00 | NUR ---
Pt discharged home at this time. All discharge instructions given to pt and family and verbalized understanding of discharge instructions. Prescriptions given to pt.
--- NOTE | 2018-03-08 19:18 | Progress Note ---
DATE: March 08, 2018 CARDIOLOGY PROGRESS NOTE SUBJECTIVE: Patient denies chest pain or shortness of breath. She has not had any bleeding. OBJECTIVE VITAL SIGNS: Temperature 97.8 degrees, pulse 65, respiratory rate 18, blood pressure 136/56, oxygen saturation 98% on room air. GENERAL: Awake and alert, no acute distress. LUNGS: Clear to auscultation bilaterally. No wheezes or crackles. CARDIOVASCULAR: Normal rate. Regular rhythm. No murmur. Normal S1, S2. ABDOMEN: Soft, nontender. EXTREMITIES: No edema. CARDIAC MEDICATIONS 1. Rivaroxaban 20 mg p.o. daily. 2. Amiodarone 200 mg p.o. daily. 3. Metoprolol succinate 150 mg p.o. daily. 4. Aspirin 81 mg p.o. daily. LABS: WBC 9.26, hemoglobin 13.4, hematocrit 37.3, platelets 157. Sodium 138, potassium 4.1, chloride 112, CO2 of 18, BUN 5, creatinine 0.74. TELEMETRY: Normal sinus rhythm. IMPRESSION 1. Atrial fibrillation, rapid ventricular response, now sinus rhythm. 2. Mild colitis. 3. Hyperlipidemia. RECOMMENDATIONS: Patient is now in sinus rhythm. Continue amiodarone as well as beta blockade. Patient had biopsy done yesterday, monitored for bleeding with initiation of Xarelto. Continue current cardiac medications. Follow up with us in the office in 2 weeks. Thank you for this consult. We will continue to follow. Job#: [id number] NOHELIA
== END 2018-03-08 19:00 | disposition home or self-care (01) | DRG 348 ==
LOC: ER 13:10 → ERHOLD 18:36 → ICU 21:00 → MED/SURG 03-07 21:50
PROVIDERS: ADMIT Internal Medicine; ATTEND Internal Medicine
PROC: 0DBE8ZX Excision of Large Intestine, Via Natural or Artificial Opening Endoscopic, Diagnostic (ICD-10-PCS; 2018-03-07)
PROC: 0DBP8ZX Excision of Rectum, Via Natural or Artificial Opening Endoscopic, Diagnostic (ICD-10-PCS; 2018-03-07)
PROC: 0DBB8ZX Excision of Ileum, Via Natural or Artificial Opening Endoscopic, Diagnostic (ICD-10-PCS; principal; 2018-03-07 10:05)
PROC: 0DB88ZZ Excision of Small Intestine, Via Natural or Artificial Opening Endoscopic (ICD-10-PCS; 2018-03-07 10:05)
DX: A09 Infectious gastroenteritis and colitis, unspecified (principal); N17.9 Acute kidney failure, unspecified; K55.9 Vascular disorder of intestine, unspecified; K50.90 Crohn's disease, unspecified, without complications; I48.1 Persistent atrial fibrillation; K58.9 Irritable bowel syndrome, unspecified; E86.0 Dehydration; E78.5 Hyperlipidemia, unspecified; R15.9 Full incontinence of feces; E87.6 Hypokalemia; K62.89 Other specified diseases of anus and rectum; K64.8 Other hemorrhoids; K57.30 Diverticulosis of large intestine without perforation or abscess without bleeding
CPT/HCPCS: 36415; 45378; 45380; 71045; 74177; 80048; 80053; 80061; 81001; 82270; 82550; 82553; 83605; 83630; 83690; 83735; 83880; 83993; 84484; 85025; 85610; 85730; 87045; 87086; 87177; 87328; 87493; 88305; 93005; 93306; 99284; J1160; J1650; J2001; J2250; J2270; J2405; J3480; J7030; J7060; Q9967

== ENCOUNTER → 2018-04-11 | Day surgery (SDC) | payer MEDICARE ==
[2018-04-10 14:38] LABS: BASOPHILS # (AUTO) 0.1 (0.0-0.1); BASOPHILS % 0.6 % (0.0-1.0); EOSINOPHILS # (AUTO) 0.3 (0.0-0.4); EOSINOPHILS % 3.8 % (0.0-6.0); HEMATOCRIT 37.5 % (34.2-44.1); HEMOGLOBIN 13.2 g/dL (12.0-16.0); LYMPHOCYTES # (AUTO) 1.6 (1.0-3.2); LYMPHOCYTES % 19.8 % (18.0-39.1); MEAN CORPUSCULAR HGB CONC 35.2 g/dL (31-35); MONOCYTES # (AUTO) 0.6 (0.2-0.8); MONOCYTES % 7.7 % (4.4-11.3); NEUTROPHILS # (AUTO) 5.3 (2.1-6.9); NEUTROPHILS % 67.3 % (38.7-80.0); PLATELET COUNT 200 x10e3/uL (140-360); RED BLOOD COUNT 4.26 x10e6/uL (3.6-5.1); RED CELL DISTRIBUTION WIDTH 14.7 % (11.7-14.4)
[~2018-04-11] VITALS: Ht 160 cm; Wt 59.0 kg
[~2018-04-11] MED LIST changes: +AMIODARONE HCL200 MG PO; +ASPIRIN EC81 MG PO; +ATENOLOL50 MG PO; +CYMBALTA30 MG PO; +FENTANYL CITRATE/PF 100MCG/2 ML INJ ONE; +LIDOCAINE HCL 2% LOCAL INJ 5 ML SDV VIAL INJ ONE; +MIDAZOLAM HCL 2 MG/2 ML VIAL ONE; +MIRALAX17 GM PO; +PANTOPRAZOLE SO40 MG PO; +PROPOFOL IV EMULSION 10 MG/ML 20 ML VIAL ONE; +SENNOSIDES8.6 MG PO; +TOPROL XL50 MG PO; +XARELTO10 MG PO; +XARELTO20 MG PO
--- OUTSIDE RECORDS SUMMARY | 2018-04-11 13:04 | XMS REPORT | Continuity of Care Document ---
Author Author Juaquin alejo [facility] Interface Address Unknown Phone Unavailable Problems Problem Status Onset Date Classification Date Reported Comments Source M54.16 - "RADICULOPATHY, LUMBAR REGION" Active 11/21/2016 [facility] [place] LEFT BREAST PAIN Active 09/17/2012 [facility] SYMPTOMS IN BREAST NEC Active [facility] Medications Medication Details Route Status Patient Instructions Ordering Provider Order Date Source Allergies, Adverse Reactions, Alerts Substance Category Reaction Severity Reaction type Status Date Reported Comments Source Tetrix Cream drug allergy Allergy Active [facility] Immunizations Immunization Date Given Site Status Last [...] Beau Linares MD 11/27/16 15:52 FINAL REPORT [facility] Breast US Breast US - BREAST US/L ULTRASOUND OF THE LEFT BREAST : 10/02/2012 CLINICAL: Pain. Comparison is made to exam dated: 10/02/2012 mammogram - [facility] [place], [place]. Color flow and real-time ultrasound were performed [...] are provided. SL: 13. Radha nazario/ye:10/02/2012 13:27:16 International Banker: Rachel Acharya, [facility] [place], [place] letter sent: Normal exam Ultrasound BI-RADS: 2 Benign 10/02/2012 - - Read by: Radha Denton Dictated Date/time: 10/02/12 13:27 Electronically Signed by: Radha Denton MD 10/02/12 13:27 FINAL REPORT [facility] Digital Mammo DX [place] Digital Mammo [...] would be of added benefit to document termite control servicer stability. This aids in establishing benignity. The patient should make additional efforts to locate her prior exams. An addendum will be made if additional films are provided, and the patient may need to return for additional imaging. Ultrasound will be performed at this time; please see dedicated separate report. SL: 13. Radha nazario/:10/02/2012 13:27:36 International Banker: Niurka Ace [facility] [place], [place] Mammogram BI-RADS: 0 Indeterminate 10/02/2012 - - Read by: Radha Denton Dictated Date/time: 10/02/12 13:27 Electronically Signed by: Radha Denton MD 10/02/12 13:27 FINAL REPORT [facility] Vital Signs Vital Sign Value Date Comments Source Encounters Location Location Details Encounter Type Encounter Number Reason For Visit Attending Provider ADM Date DC Date Status Source [facility] Outpatient [id number] LEFT BREAST PAIN . AMIR GHEBRANIOUS 10/02/2012 Active [facility] [place] [facility] [id number] Chucky Laya 11/27/2016 11/28/2016 ANGEL LUIS [place] Procedures Procedure Code Date Perfomer Comments Source
[2018-04-11 14:30] VITALS: BP 130/60
[2018-04-11 14:45] VITALS: BP 111/53
[2018-04-11 15:00] VITALS: BP 111/53
--- NOTE | 2018-04-11 15:00 | NUR ---
Received patient from Chantale HILLMAN. Reviewed procedural events, orders, and medications given. Patient awake and alert. Respirations even and unlabored on room air without airway in place. Daughter at bedside. No distress noted at this time. IV to right hand is without signs or symptoms of infiltration at this time.
[2018-04-11 15:15] VITALS: BP 103/69
[2018-04-11 15:30] VITALS: BP 108/52
--- NOTE | 2018-04-11 15:35 | NUR ---
Patient awake alert, and orientedx3. Respirations even and unlabored on room air. Patient has slight cough but expected since patient received Hurricane spray. EKG completed at bedside. No distress noted. Discharge criteria met. Reviewed discharge instructions with patient. Reviewed when to start diet at 1630, activity restrictions, and follow-up appointment. Instructed patient on when to call 911. Patient and family verbalized understanding and had no further questions at this time.
--- NOTE | 2018-04-11 15:50 | NUR ---
IV to right hand removed and dressing placed per protocol. Patient discharged to private vehicle in wheelchair with daughter as tier truck driver. No distress noted at time of discharge.
--- NOTE | 2018-04-11 16:11 | Operative Report ---
DATE OF PROCEDURE: April 11, 2018 PROCEDURES PERFORMED 1. Transesophageal echocardiography. 2. Direct current cardioversion. PREOPERATIVE DIAGNOSIS: Atrial fibrillation. POSTOPERATIVE DIAGNOSIS: Atrial fibrillation. ESTIMATED BLOOD LOSS: Zero mL. COMPLICATIONS: None. PROCEDURE DETAILS: After informed consent was obtained, the patient was brought to the operating room in the fasting, nonsedated state. A time out was performed. The posterior pharynx was sprayed with Cetacaine spray for topical anesthesia. Using anesthesia, the patient received propofol for sedation. The echocardiography probe was passed into the esophagus with ease, and multiple images were performed. This showed no evidence of thrombus in the left atrial appendage. No other masses or thrombi were noted. The probe was removed. The patient received 200 joules for direct current cardioversion, which promptly restored normal sinus rhythm. She left the operating room in stable condition. Job#: [id number] RUBY
== END | disposition home or self-care (01) ==
LOC: CATH LAB 12:28
PROVIDERS: ATTEND Internal Medicine Cardiovascular Disease
DX: I48.0 Paroxysmal atrial fibrillation (principal); I10 Essential (primary) hypertension; Z79.01 Long term (current) use of anticoagulants; Z88.2 Allergy status to sulfonamides; Z88.8 Allergy status to other drugs, medicaments and biological substances; R07.2 Precordial pain
CPT/HCPCS: 36415; 85025; 92950; 93005; 93312; 93320; 93325; J2001; J2250; J2704; 93307

== ENCOUNTER 2019-11-29 15:25 | Emergency (ER) | payer MEDICARE ==
[~2019-11-29] VITALS: Ht 160 cm; Wt 59.0 kg
[~2019-11-29 15:25] MED LIST changes: -FENTANYL CITRATE/PF 100MCG/2 ML INJ ONE; -LIDOCAINE HCL 2% LOCAL INJ 5 ML SDV VIAL INJ ONE; -MIDAZOLAM HCL 2 MG/2 ML VIAL ONE; -PROPOFOL IV EMULSION 10 MG/ML 20 ML VIAL ONE
[2019-11-29] MEDS ORDERED: HYDROCODONE/APAP 5MG-325MG TAB PO ONE (16:30)
--- OUTSIDE RECORDS SUMMARY | 2019-11-29 17:00 | XMS REPORT | Continuity of Care Document ---
Author Author Juaquin Lorenzo [employer] FLAVIO MILLANIGHT Organization [facility] Address Unknown Phone Unavailable Care Team Providers Care Seasoner Hand Name Role Phone [employer] Unavailable Un available Problems Problem Status Onset Date Classification Date Reported Comments Source M54.16 - "RADICULOPATHY, LUMBAR REGION" Active 11/21/2016 [facility] [place] LEFT BREAST PAIN Active 09/17/2012 [facility] SYMPTOMS IN BREAST NEC Active [facility] Medications No Data Provided for This Section Allergies, Adverse Reactions, Alerts Substance Category Reaction Severity Reaction type Status Date Reported Comments Source Tetrix Cream Assertion Drug allergy Active [facility] [place] Immunizations No Data Provided for This Section Results No Data Provided for This Section Pathology Reports No Data Provided for This Section Diagnostic Reports Report Value Date Source Retroperitoneal Complete US EX AM: US RENAL DATE: 07/22/2018 8:45 AM CDT INDICATION: - N13.30 Unspecified hydronephrosis ADDITIONAL INFORMATION: None. COMPARISON: None. TECHNIQUE: Multiplanar grayscale and color Doppler ultrasound of the kidneys and urinary bladder. DISCUSSION: Right kidney: Hydronephrosis: None. Size: 9.1 x 4.4 x 3.9 cm. Echogenicity: Increased Calculi: None. Cysts: Small parapelvic cyst Masses: None. Left kidney: Hydronephrosis: Mild prominence of the anal pelvis Size: 10.1 x 3.5 x 4.1 cm. Echogenicity: Increased Calculi: None. Cysts: None. Masses: None. Bladder: Normal. IMPRESSION: 1. Increased echogenicity of the kidney s most likely reflecting chronic renal disease. No evidence of significant hydronephrosis. Small right-sided parapelvic cyst is suspected. 07/22/2018 [facility] Spine lumbar wo contrast MRI [place] LUMBAR SPINE WITHOUT CONTRAST 11/27/2016 1:10 PM [...] on left L3 exiting nerve root. 11/27/2016 ANGEL LUIS [facility] Breast US - BREAST US/L ULTRASOUND OF THE LEFT BREAST : 10/02/2012 CLINICAL: Pain. Comparison is made to exam dated: 10/02/2012 mammogram - [facility]. Color flow and real-time ultrasound were performed [...] would be of added benefit to document alf stability. This aids in establishing benignity. The patient should make additional efforts to locate her prior exams. An addendum will be made if additional films are provided. SL: 13. Radha josepht/penrad:10/02/2012 13:27:16 Econometrician: Rachel Acharya [facility] letter sent: Normal exam Ultrasound BI-RADS: 2 Benign 10/02/2012 [facility] Digital Mammo DX [place] - DIGI BANDAR MAMMO DX [place] BILATERAL DIGITAL DIAGNOSTIC [...] would be of added benefit to document terminologist stability. This aids in establishing benignity. The patient should make additional efforts to locate her prior exams. An addendum will be made if additional films are provided, and the patient may need to return for additional imaging. Ultrasound will be performed at this time; please see dedicated separate report. SL: 13. Radha nazario/:10/02/2012 13:27:36 Econometrician: Niurka Ace [facility] Mammogram BI-RADS: 0 Indeterminate 10/02/2012 [facility] Consultation Notes No Data Provided for This Section Discharge Summaries No Data Provided for This Section History and Physicals No Data Provided for This Section Vital Signs No Data Provided for This Section Encounters Location Location Details Encounter Type Encounter Number Reason For Visit Attending Provider ADM Date DC Date Status Source [facility] Outpatient [id number] LEFT BREAST PAIN . AMIR GHEBRANIOUS 10/02/2012 Active [facility] [place] [facility] [id number] Chucky Asif 11/28/2016 [facility] [place] [facility] - [place] [facility] [id number] Bryn Julian 07/22/2018 07/23/2018 [facility] [place] Procedures No Data Provided for This Section Assessment and Plan No Data Provided for This Section Plan of Care No Data Provided for This Section Social History Social History Date Source No data available for this section 07/23/2018 [facility] [place] No data available for this section 11/28/2016 [facility] [place] Family History No Data Provided for This Section Advance Directives No Data Provided for This Section Functional Status No Data Provided for This Section
--- OUTSIDE RECORDS SUMMARY | 2019-11-29 17:01 | XMS REPORT | Continuity of Care Document ---
Author Author [facility] t Organization [facility] Address [address] [place] [address] Phone Unavailable Care Team Providers Care Highway Engineering Teacher Name Role Phone NONSTAFF PCP Unavailable Fran Soto Attphys BRYN SOTO Attphys Unavailable Lorenzo SIU Attphys Unavailable Tex Asif Attphys BRYN SOTO Admphys Unavailable Payers Payer Name Policy Type Policy Number Effective Date Expiration Date Sahra Restrepo Medicare Complete [id number] 2017 00:00:00 [facility] Problems Condition Name Condition Details Condition Category Status Onset Date Resolution Date Last Treatment Date Treating Clinician Comments Source M54.16 - "RADICULOPATHY, LUMBAR REGION" M54.16 - "RADICULOPATHY, LUMBAR REGION" Active 11/21/2016 [facility] [place] Diagnosis Active 2016-11-21 00:01:00 2016-11-27 12:40:00 Juaquin Lorenzo LEFT BREAST PAIN LEFT BREAST PAIN Active 09/17/2012 [facility] Active 2012-09-17 00:00:00 2012-10-02 12:15:00 Juaquin Lorenzo SYMPTOMS IN BREAST NEC SYMP TOMS IN BREAST NEC Active [facility] Active 2012-10-02 12:15:00 M emoalaina Lorenzo Allergies, Adverse Reactions, Alerts Allergy Name Allergy Type Status Severity Reaction(s) Onset Date Inacti ve Date Treating Clinician Comments Source theophylline DA Active SV 2018-08-27 00:00:00 [facility] theophylline anhydrous Allergy to Substance Active Mild ANX IETY 2017-11-05 00:00:00 [facility] Sulfa (Sulfonamide Antibiotics) Allergy to Substance Active Mild 2017-11-05 00:00:00 [facility] Carisoprodol Allergy to Substance Active Mild 2017-11-05 00:00:0 0 [facility] DAYPRO DA Active U 2003-11-30 00:00:00 [facility] No Known Contrast Allergies DA Active U 2003-11-30 00:00: 00 [facility] No Known Food Allergies DA Active U 2003-11-30 00:00:00 [facility] No Known Other Allergies DA Active U 2003-11-30 00:00:00 [facility] TCN - TETRACYCLINE DA Active U 2003-11-30 00:00:00 [facility] tetracycline DA Active U 2001-11-25 00:00:00 [facility] Not Converted 497. See Text. DA Active U 2001-11-25 00:0 0:00 [facility] Tetrix Cream Tetrix Cream Active [facility] Social [facility] Social [facility]it Start Date Stop Date Quantity Comments Source Social History 2016-11-28 04:59:00 2016-11-28 04:59:00 [facility] Medications Ordered Medication Name Filled Medication Name Start Date Stop Da te Current Medication? Ordering Clinician Indication Dosage Frequency Signature (SIG) Comments Components Source Amiodarone Hcl 200 Mg Tablet Amiodarone Hcl 200 Mg Tablet 5 00:00:00 Yes Bryn Soto Md [address] [facility] Aspirin (Aspirin Ec) 81 Mg Tablet. Aspirin (Aspirin Ec) 81 Mg Tablet. 2018-03-08 00:00:00 Yes Bryn Soto Md 81 Every Morn ing [facility] Duloxetine Hcl (Cymbalta) 30 Mg Capsule. Duloxetine Hcl (Cymbalta) 30 Mg Capsule. 2018-03-08 00:00:00 Yes Bryn Soto Md 60 Bam y [facility] Metoprolol Succinate (Toprol Xl) 50 Mg Tab.er.24h Meto prolol Succinate (Toprol Xl) 50 Mg Tab.er.24h 2018-03-08 00:00:00 Yes Bryn Soto Md 150 Daily [facility] Pantoprazole Sodium (Protonix) 40 Mg Tablet. Pantopr azole Sodium (Protonix) 40 Mg Tablet. 2018-03-08 00:00:00 Yes Bryn Soto Md 40 Ev queta 12 Hours [facility] Polyethylene Glycol 3350 (Miralax) 17 Gm Powd.pack Raymundo yethylene Glycol 3350 (Miralax) 17 Gm Powd.pack 2018-03-08 00:00:00 Yes Bryn Soto Md 17 Daily as needed for Constipation [facility] Rivaroxaban (Xarelto) 10 Mg Tablet Rivaroxaban (Xarelto) 10 Mg Tablet 2018-03-08 00:00:00 Yes Bryn Soto Md 20 Daily At 1700 [facility] Sennosides 8.6 Mg Tablet Sennosides 8.6 Mg Tablet 2018-03-08 00:00:00 Yes Bryn Soto Md 8.6 Daily as needed for Constipation [facility] Amlodipine/Atorvastatin (Amlodipine-Atorvast 10-40 Mg) 1 Each Tablet Amlodipine/Atorvastatin (Amlodipine-Atorvast 10-40 Mg) 1 Each Tablet Yes Daily [facility] Citalopram Hydrobromide (Citalopram Hbr) 20 Mg Tablet Citalopram Hydrobromide (Citalopram Hbr) 20 Mg Tablet Yes 20 Daily [facility] Atenolol 50 Mg Tablet, 50 Mg Oral Atenolol 50 Mg Tablet, 50 Mg O ral 2018-03-08 00:00:00 No 50 Daily [facility] Metoprolol Tartrate 50 Mg Tablet, 50 Mg Oral Metoprolo l Tartrate 50 Mg Tablet, 50 Mg Oral 2018-03-04 00:00:00 No 50 Daily [facility] Procedures Procedure Date / Time Performed Performing Clinician [facility] e Colonoscopy with biopsy 2018-03-07 00:00:00 JACOB OLIVAS [facility] Computed tomography of abdomen and pelvis with contrast 2018 00:00:00 BRYN SOTO [facility] Encounters Start Date/Time End Date/Time Encounter Type Admission Type [facility] Care Department Encounter ID Source 2018-07-22 08:03:00 2018-07-22 23:59:00 Outpatient Mary Lou Soto MHOIB OIB [id number] 2018-03-04 18:36:00 2018-03-08 19:00:00 Discharged Inpatient 1 BRYN SOTO [facility] [id number] [facility] 2017-11-05 16:29:00 2017-11-05 18:51:00 Departed Emergency Room 1 TEA SIU [facility] [id number] [facility] 2016-11-27 12:30:00 2016-11-27 23:59:00 Outpatient Chucky Asif HOIP HOIP [id number] Results Test Description Test Time Test Comments Results Result Comments Source STOMACH 2018-09-03 13:44:00 RUN DATE: 09/03/18 [place] - Lab PAGE 1 RUN TIME: 1345 Specimen Inquiry RUN USER: INTERFACE PATIENT: FLAVIO FRANCOIS LOC: [place] U #: [id number] AGE/SX: 73/F ROOM: RE09/01/18REG DR: Tariq Bacon : 47 BED: DIS: STATUS: [facility] TLOC: SPEC #: [id number] RECD: 09/02/18 STATUS: MELA NOEMI #: [id number] MOMO: 09/01/18- DR: Tariq Bacon MD ENTERED: 09/02/18 SP TYPE: STOMACH OTHR DR: Bryn Soto MD ORDERED: GROSS COPIES TO: Tariq Bacon MD [address] [place], [place] [id number] Bryn Soto MD [address] [place], [place] [address] [email or web address] PROCEDURES: GROSS (09/03/18-114) TISSUES: 1. DUODENUM, NOS - BX 2. ANTRAL BIOPSY - H-PYLORI 3. ESOPHAGUS, NOS - BX CLINICAL HISTORY COLLECTION DATE: 09/01/18 EPIGASTRIC PAIN, HIATAL HERNIA, DRIVER'S FINAL DIAGNOSIS Duodenum, biopsy: DUODENAL MUCOSA, NO PATHOLOGIC ALTERATION Antrum, biopsy: PATCHY MILD CHRONIC INFLAMMATION, GASTRIC MUCOSA NO INTESTINAL METAPLASIA SEEN NEGATIVE FOR HELICOBACTER PYLORI NEGATIVE FOR MALIGNANCY Esophagus, biopsy: CHRONIC INFLAMMATION, GASTRIC TYPE MUCOSA NEGATIVE FOR INTESTINAL METAPLASIA, DYSPLASIA, AND MALIGNANCY DMW/sm CONTINUED ON NEXT PAGE RUN DATE: 09/03/18 [facility] PAGE 2 RUN TIME: 1345 Specimen Inquiry RUN USER: INTERFACE SPEC #: [id number] PATIENT: FLAVIO FRANCOIS #[id number] (Continued) FINAL DIAGNOSIS (Continued) D [id number], [id number] MACROSCOPIC The first specimen is received in formalin, labeled with the patient's name, identified as "duodenum bx". It consists of two lara biopsy tissue measuring 0.2 and 0.25 cm. The second specimen is received in formalin, labeled with the patient's name, identified as "antrum bx". It consists of two lara biopsy tissue measuring 0.3 cm each. An H E and a Giemsa stain will be prepared. The third specimen is received in formalin, labeled with the patient's name, identified as "esophagus bx". It consists of lara biopsy tissue measuring 0.3 cm. GROSS PERFORMED AT [facility] [address] [place] [address] [phone])[phone] MICROSCOPIC All of the stains, including any controls performed, stain appropriately. MICROSCOPIC PERFORMED AT [facility] [address] [place] [address] [phone])[phone] PERFORMING SITE Diagnosis performed at: [facility], TERRY [address] [place] [address] Signed SIGNATURE ON FILE Addis Alcantara MD 09/03/18 1344 END OF REPORT BASIC METABOLIC PANEL 2018-09-01 10:12:00 Test Item SODIUM (test code = NA) 141 mmol/L 136-145 N POTASSIUM (test code = K) 3.2 mmol/L 3.5-5.1 L CHLORIDE (test code = CL) 105.0 mmol/L 98-107 N CARBON DIOXIDE (test code = CO2) 30.0 mmol/L 21-32 N ANION GAP (test code = GAP) 9.2 10-20 L GLUCOSE (test code = GLU) 99 mg/dL 74-106 N BLOOD UREA NITROGEN (test code = BUN) 29 mg/dL 7-18 H GLOMERULAR FILTRATION RATE (test code = GFR) 26 mL/min >=60 Estimated GFR by using Modified MDRD formula.Chronic kidney disease is defined as either kidney damageor GFR <60 mL/min/1.73 m2 for >3 months. CREATININE (test code = CREAT) 1.90 mg/dL 0.55-1.02 H Note change in reference range due to change in reagent. BUN/CREATININE RATIO (test code = BUN/CREA) 15.5 10-20 N CALCIUM (test code = CA) 8.9 mg/dL 8.5-10.1 N BASIC METABOLIC [id number] 10:04:00* Test Item Value Reference Range Interpretation Comments SODIUM (test code = NA) 141 mmol/L 136-145 N POTASSIUM (test code = K) 3.2 mmol/L 3.5-5.1 L CHLORIDE (test code = CL) 105.0 mmol/L 98-107 N CARBON DIOXIDE (test code = CO2) mmol/L 21-32 ANION GAP (test code = GAP) 10-20 GLUCOSE (test code = GLU) mg/dL 74-106 BLOOD UREA NITROGEN (test code = BUN) mg/dL 7-18 GLOMERULAR FILTRATION RATE (test code = GFR) mL/min >=60 CREATININE (test code = CREAT) mg/dL 0.55-1.02 BUN/CREATININE RATIO (test code = BUN/CREA) 10-20 CALCIUM (test code = CA) mg/dL 8.5-10.1 BASIC METABOLIC [id number] 17:06:00* Test Item Value Reference Range Interpretation Comments SODIUM (test code = NA) 139 mmol/L 136-145 N POTASSIUM (test code = K) 2.5 mmol/L 3.5-5.1 [facility] by [employer].[facility] 08/27/18 1706Critical results verified and read back by Nurse? Y CHLORIDE (test code = CL) 101.0 mmol/L 98-107 N CARBON DIOXIDE (test code = CO2) 33.0 mmol/L 21-32 H ANION GAP (test code = GAP) 7.5 10-20 L GLUCOSE (test code = GLU) 110 mg/dL 74-106 H BLOOD UREA NITROGEN (test code = BUN) 31 mg/dL 7-18 H GLOMERULAR FILTRATION RATE (test code = GFR) 34 mL/min >=60 Estimated GFR by using Modified MDRD formula.Chronic kidney disease is defined as either kidney damageor GFR <60 mL/min/1.73 m2 for >3 months. CREATININE (test code = CREAT) 1.50 mg/dL 0.55-1.02 H Note change in reference range due to change in reagent. BUN/CREATININE RATIO (test code = BUN/CREA) 20.7 10-20 H CALCIUM (test code = CA) 8.8 mg/dL 8.5-10.1 N CBC W/AUTO [id number] 16:52:00* Test Item Value Reference Range Interpretation Comments WHITE BLOOD CELL (test code = WBC) 6.3 K/mm3 4.5-12.5 N RED BLOOD CELL (test code = RBC) 4.29 mill/mm3 3.7-5.2 N HEMOGLOBIN (test code = HGB) 13.0 gram/dL 11.5-15.5 N HEMATOCRIT (test code = HCT) 37.5 % 36.0-46.0 N MEAN CELL VOLUME (test code = MCV) 87.4 fL 80-98 N MEAN CELL HGB (test code = MCH) 30.3 picogram 27.0-33.0 N MEAN CELL HGB CONCETRATION (test code = MCHC) 34.7 gram/dL 33.0-36. 0 N RED CELL DISTRIBUTION WIDTH (test code = RDW) 13.4 % 11.6-16. 2 N RED CELL DISTRIBUTION WIDTH SD (test code = RDW-SD) 42.9 fL 37 .0-51.0 N PLATELET COUNT (test code = PLT) 174 K/mm3 150-450 N MEAN PLATELET VOLUME (test code = MPV) 10.0 fL 6.7-11.0 N NEUTROPHIL % (test code = NT%) 68.0 % 39.0-69.0 N IMMATURE GRANULOCYTE % (test code = IG%) 0.5 % 0.0-5.0 N LYMPHOCYTE % (test code = LY%) 21.0 % 25.0-55.0 L MONOCYTE % (test code = MO%) 7.0 % 0.0-10.0 N EOSINOPHIL % (test code = EO%) 2.9 % 0.0-5.0 N BASOPHIL % (test code = BA%) 0.6 % 0.0-1.0 N NUCLEATED RBC % (test code = NRBC%) 0.0 % 0-0 N NEUTROPHIL # (test code = NT#) 4.27 K/mm3 1.8-7.7 N IMMATURE GRANULOCYTE # (test code = IG#) 0.03 x10 3/uL 0-0.03 N LYMPHOCYTE # (test code = LY#) 1.32 K/mm3 1.0-5.0 N MONOCYTE # (test code = MO#) 0.44 K/mm3 0-0.8 N EOSINOPHIL # (test code = EO#) 0.18 K/mm3 0.0-0.5 N BASOPHIL # (test code = BA#) 0.04 K/mm3 0.0-0.2 N NUCLEATED RBC # (test code = NRBC#) 0.00 K/mm3 0.0-0.1 N MANUAL DIFF REQUIRED (test code = MDIFF) NO CBC W/AUTO [id number] 16:41:00* Test Item Value Reference Range Interpretation Comments WHITE BLOOD CELL (test code = WBC) K/mm3 4.5-12.5 RED BLOOD CELL (test code = RBC) mill/mm3 3.7-5.2 HEMOGLOBIN (test code = HGB) 13.0 gram/dL 11.5-15.5 N HEMATOCRIT (test code = HCT) 37.5 % 36.0-46.0 N MEAN CELL VOLUME (test code = MCV) fL 80-98 MEAN CELL HGB (test code = MCH) picogram 27.0-33.0 MEAN CELL HGB CONCETRATION (test code = MCHC) gram/dL 33.0-36. 0 RED CELL DISTRIBUTION WIDTH (test code = RDW) % 11.6-16. 2 RED CELL DISTRIBUTION WIDTH SD (test code = RDW-SD) fL 37 .0-51.0 PLATELET COUNT (test code = PLT) K/mm3 150-450 MEAN PLATELET VOLUME (test code = MPV) fL 6.7-11.0 NEUTROPHIL % (test code = NT%) % 39.0-69.0 IMMATURE GRANULOCYTE % (test code = IG%) % 0.0-5.0 LYMPHOCYTE % (test code = LY%) % 25.0-55.0 MONOCYTE % (test code = MO%) % 0.0-10.0 EOSINOPHIL % (test code = EO%) % 0.0-5.0 BASOPHIL % (test code = BA%) % 0.0-1.0 NEUTROPHIL # (test code = NT#) K/mm3 1.8-7.7 LYMPHOCYTE # (test code = LY#) K/mm3 1.0-5.0 MONOCYTE # (test code = MO#) K/mm3 0-0.8 EOSINOPHIL # (test code = EO#) K/mm3 0.0-0.5 BASOPHIL # (test code = BA#) K/mm3 0.0-0.2 SCR MAMM BILATERAL TONEY CAD [id number] 09:32:23 - SCR MAMM BILATERAL TONEY CAD DIGITALBILATERAL DIGITAL SCREENING MAMMOGRAM 3D/2D WITH CAD: 08/01/2018CLINICAL: Asymptomatic. Digital breast tomosynthesis was performed in addition to routine CC and MLO views. Current mammographic images were evaluated by either a [employer] M-Vu or a [employer] ImageChecker CAD (computer aided detection system). No prior exams were available for comparison. There are scattered fibroglandular tissues in both breasts. There is a probable intramam oracio node in the left breast at 1 o'clock, posterior depth, 10 cm from the nippl e. No other significant masses, calcifications, or other findings are seen in e ither breast. IMPRESSION: INCOMPLETE ASSESSMENT: ADDITIONAL IMAGING EVALUATION RECOMMENDEDLEFT BREAST: The probable intramammary node in the left breast upper outer quadrant, posterior depth, 10 cm from the nipple is indeterminate. An ul trasound is recommended. RIGHT BREAST: There is no evidence of malignancyMahesh Francois M.D. ar/:08/20/2018 09:32:23 Safety Teacher: Niyah MONSIVAIS, [facility]-FWletter sent: Additional Imaging Mammogram BI- RADS: 0 IndeterminateStool Lactoferrin (LAB)2018-03-07 13:54:00* Test Item Value Reference Range Interpretation Comments Stool Lactoferrin (LAB) (test code = 92479-9) NEGATIVE NEGATIVE Testing on stool aspirate specimens is outside detective lieutenant claims since specime n type not validated on this assay.[facility] Clostridium Difficile Toxin A & [id number] 13:54:00* Test Item Value Reference Range Interpretation Comments Clostridium Difficile Toxin A & B (test code = 135639397) NEGATIVE NEGATIVE Testing on stool aspirate specimens is outside detective lieutenant claims since specime n type not validated on this assay.[facility] [id number] 07:03:00* Test Item Value Reference Range Interpretation Comments Sodium Level (test code = 2951-2) 138 136-145 [facility] [id number] 07:03:00* Test Item Value Reference Range Interpretation Comments Potassium Level (test code = 2823-3) 4.1 3.5-5.1 [facility]loride [id number] 07:03:00* Test Item Value Reference Range Interpretation Comments Chloride Level (test code = 2075-0) 112 98-107 H [facility] RenaissanceCarbon Dioxide [id number] 07:03:00* Test Item Value Reference Range Interpretation Comments Carbon Dioxide Level (test code = 2028-9) 18 22-29 L [facility] RenaissanceAnion [id number] 07:03:00* Test Item Value Reference Range Interpretation Comments Anion Gap (test code = 01519-1) 12.1 8-16 [facility] Urea [id number] 07:03:00* Test Item Value Reference Range Interpretation Comments Blood Urea Nitrogen (test code = 3094-0) 5 7-26 L [facility] RenaissanceCreatinine2019-01-04 07:03:00* Test Item Value Reference Range Interpretation Comments Creatinine (test code = 2160-0) 0.74 0.57-1.11 [facility]UN/Creatinine [id number] 07:03:00* Test Item Value Reference Range Interpretation Comments BUN/Creatinine Ratio (test code = 3097-3) 7 6-25 [facility] Renaissance[facility]at Glomerular Filtration Rate 2018-03-07 07:03:00* Test Item Value Reference Range Interpretation Comments Estimat Glomerular Filtration Rate (test code = 988055125) > 60 >60 Ranges were taken from the National Kidney Disease Education Program and the [facility] Foundation literature.Reference ranges:60 or greater: Hbqqwg23-52 ( for 3 consecutive months): Chronic kidney disease 15 or less: Kidney failureDoctors Hospital at RenaissanceGlucose [id number] 07:03:00* Test Item Value Reference Range Interpretation Comments Glucose Level (test code = KRO8609) 85 74-118 [facility] RenaissanceCalcium [id number] 07:03:00* Test Item Value Reference Range Interpretation Comments Calcium Level (test code = 24373-6) 8.0 8.4-10.2 L [facility] RenaissanceWhite Blood [id number] 04:48:00* Test Item Value Reference Range Interpretation Comments White Blood Count (test code = 6690-2) 9.26 4.8-10.8 [facility] Renaissance[facility] Blood [id number] 04:48:00* Test Item Value Reference Range Interpretation Comments Red Blood Count (test code = 789-8) 4.38 3.6-5.1 [facility] Renaissance[facility]emoglobin2019-01-03 04:48:00* Test Item Value Reference Range Interpretation Comments Hemoglobin (test code = 90676-4) 13.4 12.0-16.0 [facility]ematocrit2019-01-03 04:48:00* Test Item Value Reference Range Interpretation Comments Hematocrit (test code = 4544-3) 37.3 34.2-44.1 [facility] RenaissanceMean Corpuscular Tnqhua6003-67-15 04:48:00* Test Item Value Reference Range Interpretation Comments Mean Corpuscular Volume (test code = 787-2) 85.2 81-99 [facility] RenaissanceMean Corpuscular Xjddystlac2824-09-15 04:48:00* Test Item Value Reference Range Interpretation Comments Mean Corpuscular Hemoglobin (test code = 785-6) 30.6 28-32 [facility] Hemoglobin Concent 2018-03-06 04:48:00* Test Item Value Reference Range Interpretation Comments Mean Corpuscular Hemoglobin Concent (test code = 786-4) 35.9 31-35 H [facility] RenaissanceRed Cell Distribution [id number] 04:48:00* Test Item Value Reference Range Interpretation Comments Red Cell Distribution Width (test code = 81777-4) 12.0 11.7 -14.4 [facility] RenaissancePlatelet [id number] 04:48:00* Test Item Value Reference Range Interpretation Comments Platelet Count (test code = 777-3) 157 140-360 [facility] RenaissanceNeutrophils (%) (Auto)2018-03-06 04:48:00 * Test Item Value Reference Range Interpretation Comments Neutrophils (%) (Auto) (test code = 57239-3) 75.5 38.7-80.0 [facility] RenaissanceLymphocytes (%) (Auto)2018-03-06 04:48:00 * Test Item Value Reference Range Interpretation Comments Lymphocytes (%) (Auto) (test code = 736-9) 13.9 18.0-39.1 L [facility] RenaissanceMonocytes (%) (Auto)2018-03-06 04:48:00* Test Item Value Reference Range Interpretation Comments Monocytes (%) (Auto) (test code = 5905-5) 8.2 4.4-11.3 [facility] Renaissance[facility]osinophils (%) (Auto)2018-03-06 04:48:00 * Test Item Value Reference Range Interpretation Comments Eosinophils (%) (Auto) (test code = 713-8) 1.4 0.0-6.0 [facility] RenaissanceBasophils (%) (Auto)2018-03-06 04:48:00* Test Item Value Reference Range Interpretation Comments Basophils (%) (Auto) (test code = 706-2) 0.5 0.0-1.0 [facility] RenaissanceIM GRANULOCYTES %2018-03-06 04:48:00* Test Item Value Reference Range Interpretation Comments IM GRANULOCYTES % (test code = IM GRANULOCYTES %) 0.5 0.0- 1.0 [facility] RenaissanceNeutrophils # (Auto)2018-03-06 04:48:00* Test Item Value Reference Range Interpretation Comments Neutrophils # (Auto) (test code = 751-8) 7.0 2.1-6.9 H [facility] RenaissanceLymphocytes # (Auto)2018-03-06 04:48:00* Test Item Value Reference Range Interpretation Comments Lymphocytes # (Auto) (test code = 00335-1) 1.3 1.0-3.2 [facility] Renaissance[facility]ocytes # (Auto)2018-03-06 04:48:00* Test Item Value Reference Range Interpretation Comments Monocytes # (Auto) (test code = 742-7) 0.8 0.2-0.8 [facility] RenaissanceEosinophils # (Auto)2018-03-06 04:48:00* Test Item Value Reference Range Interpretation Comments Eosinophils # (Auto) (test code = 711-2) 0.1 0.0-0.4 [facility] RenaissanceBasophils # (Auto)2018-03-06 04:48:00* Test Item Value Reference Range Interpretation Comments Basophils # (Auto) (test code = 704-7) 0.1 0.0-0.1 [facility] RenaissanceAbsolute Immature Granulocyte (auto 2018-03-06 04:48:00* Test Item Value Reference Range Interpretation Comments Absolute Immature Granulocyte (auto (dewey t code = Absolute Immature Granulocyte (auto) 0.05 0-0.1 [facility] RenaissanceCT ABDOMEN/PELVIS [id number] 15:29:00 [place] [address] Patient Name: FLAVIO FRANCOIS MR #: [id number] : 1945 Age/Sex: 73/F Req #: [id number] Adm Physician: BRYN SOTO MD Ordered by: BRYN SOTO MD Report #: [id number] Location: ICU Room/Bed: [place] [address] Procedure: [id number] CT/C T ABDOMEN/PELVIS W Exam Date: Exam Time: REPORT STATUS: Signed ADDENDUM #1 ADDENDUM: Dose modulation, iterative reconstruction, and/or weight based adjustment of the mA/kV was utilized to reduce the radiation dose to as low as reasonably achievable. Signed by: Dr. Liam Santoro MD on 5:24 PM ORIGINAL REPORT EXAM: CT Abdomen and Pe lvis WITH contrast INDICATION: Query colitis. COMPARISON: None. T ECHNIQUE: Abdomen and pelvis were scanned utilizing a multidetector helical sc timothy from the lung base to the pubic symphysis after administration of IV con trast. Coronal and sagittal reformations were obtained. Routine protocol was p erformed. Scan was performed when during portal venous phase. IV CONT RAST: 100 mL of Isovue 370. ORAL CONTRAST: Water COMPLI CATIONS: None RADIATION DOSE: Total DLP: 331.5 mGy*cm CTDIvo l has been reviewed. It is below the limits set by the Radiation Protocol Comm itt (RP). FINDINGS: LINES and TUBES: None. LOWER THORAX: Unremar kable HEPATOBILIARY: No evidence of focal lesion. There is intra- and extra - hepatic biliary dilation likely post cholecystectomy reservoir effect. SPLEEN: No splenomegaly. PANCREAS: No focal masses or ductal dilatation. ADRENALS: No adrenal nodules KIDNEYS/URETERS: Kidneys enhance symm etrically. There is mild right and moderate left hydronephrosis. No evidence o f stone or solid mass. Subcentimeter bilateral renal hypodensities are too sma ll to characterize, but likely represent cysts. GI TRACT: No evidence of wall thickening or distension. Appendix is normal. PELVIC ORGANS/BLADDER: Unremarkable. LYMPH NODES: No lymphadenopathy. VESSELS: Extensive athe rosclerotic changes of the dominant aorta and branch vessels. There is a separ ate origin of the common hepatic artery and the splenic artery arising from th e aorta. PERITONEUM / RETROPERITONEUM: No free air or fluid. BONES AND SOFT TISSUES: Degenerative changes of visualized spine without suspicious lyt ic or blastic lesions. CONCLUSION: No evidence of colitis. Mild rig ht and moderate left hydronephrosis. No evidence of stone. Signed by: Dr. Liam Santoro MD on 03/05/2018 3:38 PM Dictated By: LIAM SANTORO MD Electronic ally Signed By: LIAM ASNTORO MD on 03/05/18 7877 Transcribed By: SANTIAGO on 03/05 3929 COPY TO: BRYN SOTO MD Creatine Kinase [id number] 15:23:00* Test Item Value Reference Range Interpretation Comments Creatine Kinase MB (test code = 36282-7) 3.10 0-5.0 [facility] RenaissanceTroponin [id number] 15:23:00* Test Item Value Reference Range Interpretation Comments Troponin I (test code = MJL0657) 0.096 0-0.300 [facility] Wzbfkb5805-41-87 15:15:00* Test Item Value Reference Range Interpretation Comments Creatine Kinase (test code = 2157-6) 69 29-168 [facility] Kampd5267-77-25 14:49:00* Test Item Value Reference Range Interpretation Comments Stool Occult Blood (test code = 2335-8) NEGATIVE NEGATIVE [facility]ides Tiaii5031-22-15 07:17:00* Test Item Value Reference Range Interpretation Comments Triglycerides Level (test code = 2571-8) 112 0-149 [facility] Suzqi7028-32-46 07:17:00* Test Item Value Reference Range Interpretation Comments Cholesterol Level (test code = 2093-3) 132 0-199 Less than 200 mg/dL Low Eglr493 - 239 mg/dL Borderline Xnkj417 m g/dl and greater High Risk [facility]LDL Cmuuptctvnc6227-96-54 07:17:00* Test Item Value Reference Range Interpretation Comments LDL Cholesterol (test code = 2089-1) 73 60-130 [facility]HDL Obehfivjtbd8468-03-72 07:17:00* Test Item Value Reference Range Interpretation Comments HDL Cholesterol (test code = 2085-9) 37 40-60 L [facility]/HDL Eqxfj9933-38-91 07:17:00 * Test Item Value Reference Range Interpretation Comments Cholesterol/HDL Ratio (test code = 9830-1) 3.6 3.0-3.6 [facility])2018-03-05 06:33:00 [place] [address] Patient Name: FLAVIO FRANCOIS MR #: [id number] : 1945 Age/Sex: 73/F Req #: [id number] Adm Physician: BRYN SOTO MD Ordered by: KIRSTY DE LOS SANTOS MD Report #: [id number] Location: ICU Room/Bed: ICU [facility] Procedure: [id number] DX/CHEST SINGLE (PORTABLE) Exam Date: 03/05/18 Exam Time: 0500 REPORT STATUS: Signed EXAMINATION: CHEST SINGLE (PORTABLE) COMPARISON: 03/04/2018 INDIC ATION: Chest burning. FINDINGS: TUBES and LINES: None. LUNGS: Lungs are well inflated. Lungs are clear. There is no evidence of pneumonia or pulmonary edema. PLEURA: No pleural effusion or pneumothorax. H EART AND MEDIASTINUM: The cardiomediastinal silhouette is unremarkable. Ather osclerotic aortic calcifications. BONES AND SOFT TISSUES: No acute osseou s lesion. Lower cervical fusion hardware. Soft tissues are unremarkable. UPPER ABDOMEN: No free air under the diaphragm. Eventration of the right hemid iaphragm, stable. Cholecystectomy clips. IMPRESSION: No acute radiograph ic abnormality. Signed by: DR. Patricio Saba MD on 03/05/2018 6:35 AM Dictated By: PATRICIO SABA MD 4 COPY TO: RUBY DE LOS SANTOS MD Lactic Acid Ujzpx7013-90-73 22:44:00* Test Item Value Reference Range Interpretation Comments Lactic Acid Level (test code = Lactic Acid Level) 13.3 4.5- 19.8 [facility] [id number] 18:37:00* Test Item Value Reference Range Interpretation Comments Urine WBC (test code = 5821-4) 0-5 0-5 [facility] [id number] 18:37:00* Test Item Value Reference Range Interpretation Comments Urine RBC (test code = 27977-0) 0-5 0-5 [facility] Jmxmwowe4428-76-68 18:37:00* Test Item Value Reference Range Interpretation Comments Urine Bacteria (test code = 08703-7) FEW NONE [facility] Epithelial Vyyvn1315-25-61 18:37:00 * Test Item Value Reference Range Interpretation Comments Urine Epithelial Cells (test code = 66850-5) FEW NONE [facility] Gctwi2681-23-33 18:12:00* Test Item Value Reference Range Interpretation Comments Urine Color (test code = 5778-6) YELLOW YELLOW [facility] Rjiwhkz1563-44-62 18:12:00* Test Item Value Reference Range Interpretation Comments Urine Clarity (test code = 03376-5) CLEAR CLEAR [facility] Specific Rpdsmbu5288-34-59 18:12:00 * Test Item Value Reference Range Interpretation Comments Urine Specific [place] (test code = 5811-5) 1.015 1.010-1.02 5 [facility] [id number] 18:12:00* Test Item Value Reference Range Interpretation Comments Urine pH (test code = 60930-5) 6 5-7 [facility] Leukocyte Iwfbkpoq4395-85-61 18:12:00* Test Item Value Reference Range Interpretation Comments Urine Leukocyte Esterase (test code = 5799-2) NEGATIVE NEGATIVE [facility] Rtbtnfy6565-03-31 18:12:00* Test Item Value Reference Range Interpretation Comments Urine Nitrite (test code = 22535-7) NEGATIVE NEGATIVE [facility] Dsfuvhz3824-09-74 18:12:00* Test Item Value Reference Range Interpretation Comments Urine Protein (test code = 5804-0) NEGATIVE NEGATIVE [facility] Glucose (UA)2018-03-04 18:12:00* Test Item Value Reference Range Interpretation Comments Urine Glucose (UA) (test code = 2349-9) NEGATIVE NEGATIVE [facility] Eztcjhv0763-46-93 18:12:00* Test Item Value Reference Range Interpretation Comments Urine Ketones (test code = 11787-3) NEGATIVE NEGATIVE [facility] Ccccbgswqwpy9717-08-87 18:12:00* Test Item Value Reference Range Interpretation Comments Urine Urobilinogen (test code = 54487-1) 0.2 0.2-1 [facility] Pdimajocd1168-98-34 18:12:00* Test Item Value Reference Range Interpretation Comments Urine Bilirubin (test code = 1978-6) NEGATIVE NEGATIVE [facility] Ozvxx4609-73-53 18:12:00* Test Item Value Reference Range Interpretation Comments Urine Blood (test code = 08183-9) NEGATIVE NEGATIVE [facility] Renaissance[facility]-Type Natriuretic Cbbphxw8150-89-93 14:23:00* Test Item Value Reference Range Interpretation Comments B-Type Natriuretic Peptide (test code = 25705-1) 917.4 0-100 H [facility] RenaissanceMagnesium Fzotu1903-33-57 14:10:00* Test Item Value Reference Range Interpretation Comments Magnesium Level (test code = 87863-0) 2.2 1.3-2.1 H [facility]Tom[facility] Zhaguunjs8403-02-41 14:10:00* Test Item Value Reference Range Interpretation Comments Total Bilirubin (test code = 1975-2) 0.9 0.2-1.2 [facility] RenaissanceAspartate Amino Transf (AST/SGOT) 2018-03-04 14:10:00* Test Item Value Reference Range Interpretation Comments Aspartate Amino Transf (AST/SGOT) (test code = Aspartate Amino Transf (AST/SGOT)) 18 5-34 [facility] RenaissanceAlanine Aminotransferase (ALT/SGPT) 2018-03-04 14:10:00* Test Item Value Reference Range Interpretation Comments Alanine Aminotransferase (ALT/SGPT) (test code = 1742-6) 15 0-55 [facility] Rikhllt4183-39-19 14:10:00* Test Item Value Reference Range Interpretation Comments Total Protein (test code = 2885-2) 6.9 6.5-8.1 [facility] RenaissanceAlbumin2019-01-01 14:10:00* Test Item Value Reference Range Interpretation Comments Albumin (test code = 1751-7) 3.8 3.5-5.0 [facility] RenaissanceGlobulin2019-01-01 14:10:00* Test Item Value Reference Range Interpretation Comments Globulin (test code = 14735-3) 3.1 2.3-3.5 [facility] RenaissanceAlbum[facility]/Globulin Cqxyp1774-09-97 14:10:00 * Test Item Value Reference Range Interpretation Comments Albumin/Globulin Ratio (test code = 1759-0) 1.2 0.8-2.0 [facility] RenaissanceAlkaline Dhvzgizdhjt0024-25-12 14:10:00* Test Item Value Reference Range Interpretation Comments Alkaline Phosphatase (test code = 6768-6) 55 40-150 [facility] RenaissanceLipase2019-01-01 14:10:00* Test Item Value Reference Range Interpretation Comments Lipase (test code = 3040-3) 26 8-78 [facility] RenaissanceProthrombin Cjjl2596-81-11 14:08:00* Test Item Value Reference Range Interpretation Comments Prothrombin Time (test code = 5902-2) 13.7 11.9-14.5 [facility] RenaissanceProthromb Time International Ratio 2018-03-04 14:08:00* Test Item Value Reference Range Interpretation Comments Prothromb Time International Ratio (test code = 6301-6) 0.96 Oral Anticoagulant Therapy INR Values:1. Low Intensity Therapy 1.5 - 2.02 . Moderate Intensity Therapy 2.0 - 3.03. High Intensity Therapy(1) 2.5 - 3. 54. High Intensity Therapy(2) 3.0 - 4.05. Panic Value INR > 5.0 [facility] RenaissanceAct[facility] Partial Thromboplast Time 2018-03-04 14:08:00* Test Item Value Reference Range Interpretation Comments Activated Partial Thromboplast Time (test code = 38489-6) 25.8 23.8-35.5 [facility]2018-03-04 14:03:00 [facility] [address] [place] [address] Patient Name: FLAVIO FRANCOIS MR #: [id number] : 1945 Age/Sex: 73/F Req #: [id number] Adm Physician: Ordered by: MICHELE ZARAGOZA PASTRY SUPERVISOR Report #: [id number] Location: ER Room/Bed: Procedure: [id number] DX/CHEST SINGLE (PORTABLE) Exam Date: 03/04/18 Exam Time: 1343 REPORT STATUS: Signed EXAMINATION: CHEST SINGLE (PORTABLE) COMPARISON: None FIND INGS: TUBES and LINES: None. LUNGS: Lungs are well inflated. Lungs are clear. There is no evidence of pneumonia or pulmonary edema. PLEURA: No pleural effusion or pneumothorax. HEART AND MEDIASTINUM: The cardiomed iastinal silhouette is unremarkable. Atherosclerotic aortic calcifications. BONES AND SOFT TISSUES: No acute osseous lesion. Soft tissues are unrema rkable. UPPER ABDOMEN: No free air under the diaphragm. IMPRESSION : No acute radiographic abnormality. Signed by: Dr. Liam Santoro MD on 2:04 PM Dictated By: LIAM SANTORO MD 1404 Transcribed By: SANTIAGO on 03/04/18 1406 COPY TO: MICHELE ZARAGOZA PASTRY SUPERVISOR CT MAX/FAC.PARANASAL SINUS [id number] 07:29:00 [place] [address] Patient Name: FLAVIO RFANCOIS MR #: [id number] : 1945 Age/Sex: 72/F Req #: [id number] Adm Physician: Ordered by: TEA SIU MD Report #: [id number] Location: [facility] o/Bed: Procedure: [id number] HOPD/CT MAX/FAC.PARANAS AL SINUS WO Exam Date: 11/05/17 Exam Time: 1708 REPORT STATUS: Signed Examination: CT Face without Contrast History:Facial injury Comparison studies: None Technique: Axial images were obtained through the maxillofacial region. Coronal and sagittal reconstructions obtain ed from the axial data. Dose modulation, iterative reconstruction, and/or octavio ght based adjustment of the mA/kV was utilized [...] 2017 at 1610 hours. Signed by: Dr. Trini Herrera M.D. on 11/06/2017 7:34 AM Dictated By: TRINI GOODWIN MD 3 Transcribed By: SANTIAGO on 11/06/17733 COPY TO: TEA SIU MD CT BRAIN ZU-OSQV4405-96-05 07:27:00 [place] [address] Patient Name: FLAVIO FRANCOIS MR #: [id number] : 1945 Age/Sex: 72/F Req #: [id number] Adm Physician: Ordered by: TEA SIU MD Report #: [id number] Location: [facility] Room/Bed: Procedure: [id number] HOPD/CT BRAIN WO-HOPD Exam Date: 11/05/17 Exam Time: 1708 REPORT STAT US: Signed Examination: CT head without contrast Clinical Indication: Head and face injury. Technique: Transaxial noncontrast images from the skull base through the vertex were obtained. Sagittal and coronal reformatted images were done. Dose modulation, iterative reconstruction, and/or weight based adjustme nt of the mA/kV was utilized to reduce the radiation dose to as low as reasona mp achievable. Comparison: None. Findings: Scalp: No abnormaliti es. Bones: Intact. No fractures. No blastic or lytic lesions. Brain sul ci: Appropriate for patient's age. Ventricles: Normal in size and configuratio n. No hydrocephalus. Extra-axial space: No abnormalities. Parenc hyma: Again demonstrated are mild confluent areas of hypoattenuation in the periventricular and subcortical white matter, nonspecific. No masses, hemorr breonna, or acute or chronic cortical based vascular insults. Suprasellar carline on: No abnormalities. Craniocervical junction: The foramen magnum is patent. No Chiari one malformation. Impression: 1. No acute intracranial abnormality. 2. Mild chronic microvascular ischemic change. A prelim inary verbal report was provided by Dr. Herrera to Dr. Siu on November 05, 2017 at 1610 hours. Signed by: Dr. Trini Herrera M.D. on 11/06/2017 7:29 AM Dictated By: TRINI GOODWIN MD 8 Transcribed By: SANTIAGO on 11/06/17728 COPY TO: TEA SIU MD
--- NOTE | 2019-11-29 17:27 | Diagnostic Imaging Report ---
EXAMINATION: HUMERUS LEFT 2+VIEWS, SHOULDER LEFT COMPLETE INDICATION: Shoulder pain. COMPARISON: None FINDINGS/IMPRESSION: No evidence of acute fracture or malalignment. Mild degenerative changes in the left shoulder. Partially seen cervical spine fixation hardware. Atherosclerotic calcifications of the aortic arch. Signed by: Dr. Isaias Lemon MD on 11/29/2019 5:24 PM
[2019-11-29] MEDS ORDERED: PREDNISONE 20 MG TAB PO STA (17:30)
--- NOTE | 2019-11-29 17:49 | Emergency Department Note ---
History of Present Illnes History of Present Illness Chief Complaint: General Medicine Complaints History of Present Illness This is a 74 year old female PATIENT IN FROM HOME WITH COMPLAINTS OF LEFT SHOULDER PAIN STARTING THIS MORNING; PATIENT DENIES ANY FALL, TRAUMA, OR INJURY. PATIENT DENIES CHEST PAIN, SHORTNESS OF BREATH, OR NECK PAIN. PATIENT RATES PAIN 8/10. Historian: Patient Arrival Mode: Car [employer] Required: No Onset (how long ago): hour(s) Location: LEFT SHOULDER Quality: PAIN Radiation: Reports non-radiation Severity: moderate Onset quality: sudden Progression: unchanged Chronicity: new Context: Denies recent illness Relieving factors: immobilization Exacerbating factors: movement Associated symptoms: Reports denies other symptoms Past Medical/Family History Physician Review I have reviewed the patient's past medical and family history. Any updates have been documented here. Past Medical History Recent Fever: No Clinical Suspicion of Infectio: No New/Unexplained Change in Ment: No Past Medical History: Hypertension, A-Fib Other Medical History: STENOSIS OF THE SPINE CKD Past Surgical History: Cholecysctectomy, Hysterectomy Other Surgery: TONSILLECTOMY RIGHT SHOULDER ROTATOR CUFF Social History Smoking Cessation: Never Smoker Counseling Performed: No Alcohol Use: None Any Illegal Drug Use: No TB Exposure/Symptoms: No Physically hurt or threatened: No Family History Family history of heart diseas: No Other Last Tetanus: UTD Any Pre-Existing Lines (PICC,: No Review of Systems Review of Systems Constitutional: Reports no symptoms EENTM: Reports no symptoms Cardiovascular: Reports no symptoms Respiratory: Reports no symptoms Gastrointestinal: Reports no symptoms Genitourinary: Reports no symptoms Musculoskeletal: Reports as per HPI Integumentary: Reports no symptoms Neurological: Reports no symptoms Psychological: Reports no symptoms Endocrine: Reports no symptoms Hematological/Lymphatic: Reports no symptoms Physical Exam Related Data Allergies: Coded Allergies: Sulfa (Sulfonamide Antibiotics) (Verified Allergy, Mild, 11/29/19) carisoprodol (Verified Allergy, Mild, 11/29/19) theophylline anhydrous (Verified Allergy, Mild, ANXIETY, 11/29/19) tioconazole (Verified Allergy, Unknown, BURNING/STINGING, 11/29/19) Triage Vital Signs Vital Signs Date Time Temp Pulse Resp B/P (MAP) Pulse Ox O2 Delivery O2 Flow Rate FiO2 11/29/19 15:37 97.0 66 18 148/67 100 Room Air Vital signs reviewed: Yes Physical Exam CONSTITUTIONAL Constitutional: Present well-developed, Present well-nourished HENT HENT: Present normocephalic, Present atraumatic, Present oropharynx clear/moist, Present nose normal HENT L/R: Present left ext ear normal, Present right ext ear normal EYES Eyes: Reports PERRL, Reports conjunctivae normal NECK Neck: Present ROM normal PULMONARY Pulmonary: Present effort normal, Present breath sounds normal CARDIOVASCULAR Cardiovascular: Present regular rhythm, Present heart sounds normal, Present capillary refill normal, Present normal rate GASTROINTESTINAL Abdominal: Present soft, Present nontender, Present bowel sounds normal GENITOURINARY Genitourinary: Present exam deferred SKIN Skin: Present warm, Present dry MUSCULOSKELETAL Musculoskeletal: Present other (DECR ROM LEFT SHOULDER, TENDER OVER DELTOID, DISTAL N/V INTACT) NEUROLOGICAL Neurological: Present alert, Present oriented x 3, Present no gross motor or sensory deficits PSYCHOLOGICAL Psychological: Present mood/affect normal, Present judgement normal Results Imaging Imaging results reviewed: Yes Assessment & Plan Medical Decision Making MDM SHOULDER PAIN - CHECK XRAY R/O FX Reassessment Reassessment DC HOME WITH SLING, MILD ROM THROUGHOUT DAY TO AVOID ADHESIVE CAPSULITIS, TYL #3, PREDNISONE 40 MG QD X 5 DAYS, F/U PCP AND DR ALLAN Assessment & Plan Final Impression: (1) Shoulder pain Depart Disposition: HOME, SELF-CARE Last Vital Signs Date Time Temp Pulse Resp B/P (MAP) Pulse Ox O2 Delivery O2 Flow Rate FiO2 11/29/19 15:37 97.0 66 18 148/67 100 Room Air Home Meds Active Scripts Pantoprazole Sodium* (PROTONIX) 40 Mg Tablet.dr, 40 MG PO Q12H for 30 Days, TAB Prov:ANABELLE SOTO MD 03/08/18 Metoprolol Succinate (TOPROL XL) 50 Mg Tab.er.24h, 150 MG PO DAILY for 30 Days Prov:ANABELLE SOTO MD 03/08/18 Duloxetine Hcl (CYMBALTA) 30 Mg Capsule.dr, 60 MG PO DAILY for 30 Days Prov:ANABELLE SOTO MD 03/08/18 Aspirin (ASPIRIN EC) 81 Mg Tablet., 81 MG PO QAM for 30 Days Prov:ANABELLE SOTO MD 03/08/18 Amiodarone Hcl (AMIODARONE HCL) 200 Mg Tablet, 200 MG PO DAILY for 30 Days Prov:ANABELLE SOTO MD 03/08/18 Reported Medications Rivaroxaban (XARELTO) 20 Mg Tablet, 20 MG PO DAILY 04/10/18 Medications in the ED Acetaminophen/ Hydrocodone Bitart 1 ea ONCE ONCE PO Last administered on 11/29/19at 16:03; Admin Dose 1 EA; Start 11/29/19 at 16:30; Stop 11/29/19 at 16:31; Status DC Prednisone 40 mg ONCE STAT PO ; Start 11/29/19 at 17:30; Stop 11/29/19 at 17:35; Status DC ANTONELLA HICKS MD Nov 29, 2019 17:49
== END 2019-11-29 18:00 | disposition home or self-care (01) ==
LOC: ER 16:07
DX: M25.512 Pain in left shoulder (principal); I10 Essential (primary) hypertension; I48.91 Unspecified atrial fibrillation; N18.9 Chronic kidney disease, unspecified
CPT/HCPCS: 73030; 73060; 99283; J7512

== ENCOUNTER → 2019-12-31 | Outpatient (CLI) | payer MEDICARE ==
[~2019-12-31] MED LIST changes: +METOPROLOL TARTRATE INJ 1 MG/ML VIAL IV ONE; +REGADENOSON 0.4 MG/5 ML SYR IV ONE
--- NOTE | 2020-01-01 12:10 | Myoview Stress Test ---
DATE OF STUDY: 12/31/2019 10:00:00 Stress Test - Treadmill ONLY PROCEDURE TITLE: Rest/stress single isotope SPECT imaging with pharmacologic stress and gated SPECT imaging. INDICATION: Atrial fibrillation. PROCEDURE IN DETAIL: Pharmacologic stress testing was performed with regadenoson per protocol. The heart rate was 143 beats per minute at rest, increased to 160 beats per minute during the regadenoson infusion. The resting blood pressure is 108/93 mmHg and increased to 143/92 mmHg, which is a normal response. The resting electrocardiogram demonstrated atrial fibrillation with rapid ventricular response. There were no ST-segment changes suggestive of myocardial ischemia. Myocardial perfusion imaging was performed at rest following the injection of 10.9 mCi of tetrofosmin. At peak pharmacologic effect, the patient was injected with 31.2 mCi of tetrofosmin. Gated post-stress tomographic imaging was performed. FINDINGS: The overall quality of study is fair. Left ventricular cavity is noted to be normal size on the rest and stress studies. SPECT images demonstrate homogeneous tracer distribution throughout the myocardium. Gated SPECT imaging reveals normal myocardial thickening and wall motion. The left ventricular ejection fraction was calculated to be 41%. IMPRESSION: Myocardial perfusion imaging is normal. Overall, the left ventricular systolic function is abnormal without regional wall motion abnormalities. Carine Mendoza MD ABS/MODL /[id number]
== END ==
LOC: NM 09:47
PROVIDERS: ATTEND Internal Medicine Cardiovascular Disease
DX: I70.0 Atherosclerosis of aorta (principal)
CPT/HCPCS: 78452; 93017; A9502; J2785

== ENCOUNTER 2020-01-11 13:20 | Emergency (ER) | payer MEDICARE ==
[~2020-01-11] VITALS: Ht 160 cm; Wt 59.0 kg
[~2020-01-11 13:20] MED LIST changes: -METOPROLOL TARTRATE INJ 1 MG/ML VIAL IV ONE; -REGADENOSON 0.4 MG/5 ML SYR IV ONE
[2020-01-11] MEDS ORDERED: DILTIAZEM HCL 5 MG/ML 5 ML VIAL IV STA ×2 (13:50→15:45)
[2020-01-11] MEDS ORDERED: ASPIRIN 81 MG CHEW TAB PO ONE ×2 (14:00→14:30)
--- OUTSIDE RECORDS SUMMARY | 2020-01-11 14:22 | XMS REPORT | Continuity of Care Document ---
Author Author [facility] t Organization [facility] Address [address] [place] [address] Phone Unavailable Care Team Providers Care Assistant Merchandiser Name Role Phone MD BRYN SOTO PCP Maren HICKS Attphys Unavailable Fran Soto Attphys BRYN SOTO Attphys Unavailable Lorenzo SIU Attphys Unavailable Tex Asif Attphys BRYN SOTO Admphys Unavailable Payers Payer Name Policy Type Policy Number Effective Date Expiration Date Sahra Mccray Medicare Complete [id number] 2017 00:00:00 [facility] Problems Condition Name Condition Details Condition Category Status Onset Date Resolution Date Last Treatment Date Treating Clinician Comments Source M54.16 - "RADICULOPATHY, LUMBAR REGION" M54.16 - "RADICULOPATHY, LUMBAR REGION" Active 11/21/2016 [facility] [place] Diagnosis Active 2016-11-21 00:01:00 2016-11-27 12:40:00 Juaquin Lorenzo LEFT BREAST PAIN LEFT BREAST PAIN Active 09/17/2012 [facility] Active 2012-09-17 00:00:00 2012-10-02 12:15:00 Juaquin Lorenzo Shoulder pain Problem Active [facility] SYMPTOMS IN BREAST NEC SYMP TOMS IN BREAST NEC Active [facility] Active 2012-10-02 12:15:00 M arash Lorenzo Allergies, Adverse Reactions, Alerts Allergy Name Allergy Type Status Severity Reaction(s) Onset Date Inacti ve Date Treating Clinician Comments Source theophylline anhydrous Allergy to substance Active Mild ANX IETY 2019-11-29 00:00:00 [facility] Sulfa (Sulfonamide Antibiotics) Allergy to substance Active Mild 2019-11-29 00:00:00 [facility] Carisoprodol Allergy to substance Active Mild 2019-11-29 00:00:0 0 [facility] Tioconazole Allergy to substance Active BURNING/STINGING 2019-11-29 00:00:00 [facility] theophylline DA Active SV 2018-08-27 00:00:00 [facility] DAYPRO DA Active U 2003-11-30 00:00:00 [facility] No Known Contrast Allergies DA Active U 2003-11-30 00:00: 00 [facility] No Known Food Allergies DA Active U 2003-11-30 00:00:00 [facility] No Known Other Allergies DA Active U 2003-11-30 00:00:00 [facility] TCN - TETRACYCLINE DA Active U 2003-11-30 00:00:00 [facility] tetracycline DA Active U 2001-11-25 00:00:00 [facility] Not Converted 497. See Text. DA Active U 2001-11-25 00:0 0:00 [facility] Tetrix Cream Tetrix Cream Active [facility] Social History Social Habit Start Date Stop Date Quantity Comments Source Social History 2016-11-28 04:59:00 2016-11-28 04:59:00 [facility] Sex Assigned At 1945 00:00:00 1945 00:00:00 Female [facility] Medications Ordered Medication Name Filled Medication Name Start Date Stop Da te Current Medication? Ordering Clinician Indication Dosage Frequency Signature (SIG) Comments Components Source Amiodarone Hcl Amiodarone Hcl 2018-03-08 16:50:00 Yes 200 Daily [facility] Aspirin (Aspirin Ec) 81 Mg TABLET. Aspirin (Aspirin Ec) 81 Mg TABLET. 2018-03-08 16:50:00 Yes 81 Every Morning [facility] Duloxetine Hcl (Cymbalta) 30 Mg CAPSULE. Duloxetine Hcl (Cymbalta) 30 Mg CAPSULE. 2018-03-08 16:50:00 Yes 60 Daily [facility] Metoprolol Succinate (Toprol Xl) 50 Mg TAB.ER.24H Meto prolol Succinate (Toprol Xl) 50 Mg TAB.ER.24H 2018-03-08 16:50:00 Yes 150 Gloria ly [facility] Pantoprazole Sodium (Protonix) 40 Mg TABLET. Pantopr azole Sodium (Protonix) 40 Mg TABLET. 2018-03-08 16:50:00 Yes 40 Every 12 Ho urs [facility] Polyethylene Glycol 3350 (Miralax) 17 Gm POWD.PACK Raymundo yethylene Glycol 3350 (Miralax) 17 Gm POWD.PACK 2018-03-08 16:50:00 2018-04-10 00:00:00 No 17 Daily as needed for Constipation [facility] Rivaroxaban (Xarelto) 10 Mg TABLET Rivaroxaban (Xarelto) 10 Mg TABLET 2018-03-08 16:50:00 2018-04-10 00:00:00 No 20 Daily At 1700 [facility] Sennosides Sennosides 2018-03-08 16:50:00 2018-04-10 00:00:00 No 8.6 Daily as needed for Constipation [facility] Rivaroxaban (Xarelto) 20 Mg TABLET Rivaroxaban (Xarelto) 20 Mg TABLET Yes 20 Daily [facility] Amlodipine/Atorvastatin (Amlodipine-Atorvast 10-40 Mg) 1 Each TABLET Amlodipine/Atorvastatin (Amlodipine-Atorvast 10-40 Mg) 1 Each TABLET 2018-04-10 00:00:00 No Daily [facility] Citalopram Hydrobromide (Citalopram Hbr) 20 Mg TABLET Citalopram Hydrobromide (Citalopram Hbr) 20 Mg TABLET 2018-04-10 00:00:00 No 20 Daily [facility] Atenolol Atenolol 2018-03-08 00:00:00 No 50 Daily [facility] Metoprolol Tartrate Metoprolol Tartrate 2018-03-04 00:00:00 No 50 Daily [facility] Vital Signs Vital Name Observation Time Observation Value Comments Source Weight 2019-11-29 15:37:00 130 [lb_av] [facility] BMI (Body Mass Index) 2019-11-29 15:37:00 23.0 kg/m2 [facility] Procedures This patient has no known procedures. Encounters Start Date/Time End Date/Time Encounter Type Admission Type [facility] Care Department Encounter ID Source 2019-11-29 16:07:00 2019-11-29 18:00:00 Departed Emergency Room 1 ANTONELLA HICKS [facility] [id number] [facility] 2018-07-22 08:03:00 2018-07-22 23:59:00 Outpatient ElielMikey [place]oston Fran OIB OIB [id number] 2018-03-04 18:36:00 2018-03-08 19:00:00 Discharged Inpatient 1 BRYN SOTO [facility] [id number] [facility] 2017-11-05 16:29:00 2017-11-05 18:51:00 Departed Emergency Room 1 TEA SIU [facility] [id number] [facility] 2016-11-27 12:30:00 2016-11-27 23:59:00 Outpatient LayaChucky [place] Jimenez [facility] [facility] [id number] Results Test Description Test Time Test Comments Results Result Comments Source DIAG MAMM BILATERAL TONEY CAD DIGITAL 2019-12-03 14:50:49 - DIAG MAMM BILATERAL TONEY CAD DIGITALBILATERAL DIGITAL DIAGNOSTIC MAMMOGRAM 3D/2D WITH CAD: 12/03/2019CLINICAL: Abnormal breast exam. Digital breast tomosynthesis was performed in addition to routine CC and MLO views. Current mammographic images were evaluated by either a 72798.com M-Vu or a [employer]Pages ImageChecker CAD (computer aided detection system). Comparison is made to exam dated [facility] There are scattered fibroglandular tissues in both breasts. No suspicious mass, architectural distortion, malignant type calcification, or lymph node abnormality detected. INCOMPLETE: ADDITIONAL IMAGING EVALUATION NEEDEDBilateral ultrasound pending for additional evaluation. - BREAST ULTRASOUND BILATERALULTRASOUND OF BOTH BREASTS AND BOTH AXILLA: 12/03/2019Comparison is made to exam dated 08/01/2018 [facility]ogram [facility]. Real-time ultrasound of both breasts and both axilla and clinical breast exam were performed. No abnormalities were seen sonographically in either breast or either axilla. Clinical breast exam was unremarkable.IMPRESSION: NEGATIVE There is no sonographic evidence of malignancy. Resume annual screening mammography in one year. Mary Ellen Boothe M.D. dm/:12/03/2019 14:50:49 Entry: - 12/03/2019 14:52:38Imaging Technologist: Kathi Caruso , [facility] BIRADS 1-2 Combo FU Letter Mammogram BI-RADS: 0 Incomplete: Additional Imaging Evaluation Needed Ultrasound BI-RADS: 1 Negative BREAST ULTRASOUND BILATERAL 2019-12-03 14:50:49 - DIAG MAMM BILATERAL TONEY CAD DIGITALBILATERAL DIGITAL DIAGNOSTIC MAMMOGRAM 3D/2D WITH CAD: 12/03/2019CLINICAL: Abnormal breast exam. Digital breast tomosynthesis was performed in addition to routine CC and MLO views. Current mammographic images were evaluated by either a 72798.com M-Vu or a [employer]Pages ImageChecker CAD (computer aided detection system). Comparison is made to exam dated 08/01/2018 [facility]ogram - [facility]. There are scattered fibroglandular tissues in both breasts. No suspicious mass, architectural distortion, malignant type calcification, or lymph node abnormality detected. INCOMPLETE: ADDITIONAL IMAGING EVALUATION NEEDEDBilateral ultrasound pending for additional evaluation. - BREAST ULTRASOUND BILATERALULTRASOUND OF BOTH BREASTS AND BOTH AXILLA: 12/03/2019Comparison is made to exam dated 08/01/2018 [facility] Real-time ultrasound of both breasts and both axilla and clinical breast exam were performed. No abnormalities were seen sonographically in either breast or either axilla. Clinical breast exam was unremarkable.IMPRESSION: NEGATIVE There is no sonographic evidence of malignancy. Resume annual screening mammography in one year. Mary Ellen Boothe M.D. dm/:12/03/2019 14:50:49 Entry: - 12/03/2019 14:52:38Imaging Technologist: Kathi MONSIVAIS, [facility]: BIRADS 1-2 Combo FU Letter Mammogram BI-RADS: 0 Incomplete: Additional Imaging Evaluation Needed Ultrasound BI-RADS: 1 Negative SHOULDER LEFT COMPLETE 2019-11-29 17:21:00 [place] [address] Patient Name: FLAVIO FRANCOIS MR #: [id number] : 1945 Age/Sex: 74/F Req #: [id number] Adm Physician: Ordered by: ANTONELLA HICKS MD Report #: [id number] Location: ER Room/Bed: Procedure: [id number] DX/SHOULDER LEFT COMPLETE Exam Date: 11/29/19 Exam Time: 1634 REPORT STATUS: Signed EXAMINATION: HUMERUS LEFT 2+VIEWS, SHOULDER LEFT COMPLETE INDICATION: Shoulder pain. COMPARISON: None FINDINGS/IMPRESSION: No evidence of acute fracture or malalignment. Mild degenerative changes in the left shoulder. Partially seen cervical spine fixation hardware. Atherosclerotic calcifications of the aortic arch. Signed by: Dr. Liam Santoro MD on 11/29/2019 5:24 PM Dictated By: LIAM SANTORO MD 23 Transcribed By: SANTIAGO on 11/29/191723 COPY TO: ANTONELLA HICKS MD HUMERUS LEFT 2+VIEWS 2019-11-29 17:21:00 [place] [address] Patient Name: FLAVIO FRANCOIS MR #: [id number] : 1945 Age/Sex: 74/F Req #: [id number] Adm Physician: Ordered by: ANTONELLA HICKS MD Report #: [id number] Location: ER Room/Bed: Procedure: [id number] DX/HUMERUS LEFT 2+VIEWS Exam Date: 11/29/19 Exam Time: 1634 REPORT STATUS: Signed EXAMINATION: HUMERUS LEFT 2+VIEWS, SHOULDER LEFT COMPLETE INDICATION: Shoulder pain. COMPARISON: None FINDINGS/IMPRESSION: No evidence of acute fracture or malalignment. Mild degenerative changes in the left shoulder. Partially seen cervical spine fixation hardware. Atherosclerotic calcifications of the aortic arch. Signed by: Dr. Liam Santoro MD on 11/29/2019 5:24 PM Dictated By: LIAM SANTORO MD 23 Transcribed By: SANTIAGO on 11/29/191723 COPY TO: ANTONELLA HICKS MD [facility] 2018-09-03 13:44:00 RUN DATE: 09/03/18 [employer]cloud Bird[facility] PAGE 1 RUN TIME: 1345 Specimen Inquiry RUN USER: INTERFACE [id number] LOC: CARYN U #: [id number] AGE/SX: 73/F ROOM: RE09/01/18REG DR: Tariq Bacon : [birth year] BED: DIS: [place] [facility] [place]: SPEC #: [id number] RECD: 09/02/18 STATUS: MELA NOEMI #: [id number] MOMO: 09/01/18- SUBM DR: Tariq Bacon MD ENTERED: 09/02/18 SP TYPE: STOMACH OTHR DR: Bryn Soto MD ORDERED: GROSS COPIES TO: Tariq Bacon MD [address], [address] [place] [address] Bryn Soto MD [address] [place] [address] [email or web address] PROCEDURES: GROSS (09/03/18-1144) TISSUES: 1. DUODENUM, NOS - BX 2. [...] CONTINUED ON NEXT PAGE RUN DATE: 09/03/18 [facility] PAGE 2 RUN TIME: 1345 Specimen Inquiry RUN USER: INTERFACE SPEC #: [id number] PATIENT: FLAVIO FRANCOIS #[id number] (Continued) FINAL DIAGNOSIS (Continued) D [id number], 24336 MACROSCOPIC The first specimen is received in [...] tissue measuring 0.3 cm. GROSS PERFORMED AT [facility] [address] [place] [address] ([phone] MICROSCOPIC All of the stains, including any controls performed, stain appropriately. MICROSCOPIC PERFORMED AT [facility] [address] [place] [address] ([phone] PERFORMING SITE Diagnosis performed at: [facility] [address] [place] [address] Signed SIGNATURE ON FILE Addis Alcantara MD [...] CA) 8.9 mg/dL 8.5-10.1 N BASIC METABOLIC [id number] 10:04:00* Test Item Value Reference Range Interpretation [...] code = CA) mg/dL 8.5-10.1 BASIC METABOLIC [id number] 17:06:00* Test Item Value Reference Range Interpretation Comments SODIUM (test code = NA) 139 mmol/L 136-145 N POTASSIUM (test code = K) 2.5 mmol/L 3.5-5.1 [facility] sults called to by V.LAB.[facility] 08/27/18 1706Critical results verified and read back [...] CA) 8.8 mg/dL 8.5-10.1 N CBC W/AUTO [id number] 16:52:00* Test Item Value Reference Range Interpretation [...] (test code = MDIFF) NO CBC W/AUTO [id number] 16:41:00* Test Item Value Reference Range Interpretation [...] K/mm3 0.0-0.2 SCR MAMM BILATERAL TONEY CAD [id number] 09:32:23 - SCR MAMM BILATERAL TONEY CAD DIGITALBILATERAL DIGITAL SCREENING MAMMOGRAM 3D/2D WITH CAD: 08/01/2018CLINICAL: Asymptomatic. Digital breast tomosynthesis was performed in addition to routine CC and MLO views. Current mammographic images were evaluated by either a 72798.com M-Vu or a LeadPages ImageChecker CAD (computer aided detection system). No [...] evidence of malignancyMahesh Francois M.D. ar/:08/20/2018 09:32:23 Audit Machine Operator: Niyah MONSIVAIS, [facility] sent: Additional Imaging Mammogram BI- RADS: 0 IndeterminateStool Lactoferrin (LAB)2018-03-07 13:54:00* Test Item Value Reference Range Interpretation Comments Stool Lactoferrin (LAB) (test code = 93241-3) NEGATIVE NEGATIVE Testing on stool aspirate specimens is outside brim edge trimmer claims since specime n type not validated on this assay.[facility] Clostridium Difficile Toxin A & [id number] 13:54:00* Test Item Value Reference Range Interpretation Comments Clostridium Difficile Toxin A & B (test code = 918632482) NEGATIVE NEGATIVE Testing on stool aspirate specimens is outside brim edge trimmer claims since specime n type not validated on this assay.[facility] Centerodium Nvkyn5307-24-56 07:03:00* Test Item Value Reference Range Interpretation Comments Sodium Level (test code = 2951-2) 138 136-145 [facility] CenterPotassium Tkhkj0311-09-71 07:03:00* Test Item Value Reference Range Interpretation Comments Potassium Level (test code = 2823-3) 4.1 3.5-5.1 [facility] CenterChloride Jlxft0896-61-69 07:03:00* Test Item Value Reference Range Interpretation Comments Chloride Level (test code = 2075-0) 112 98-107 H [facility] CenterCarbon Dioxide Vpesr0179-01-80 07:03:00* Test Item Value Reference Range Interpretation Comments Carbon Dioxide Level (test code = 2028-9) 18 22-29 L [facility] CenterAnion Wdh0790-87-81 07:03:00* Test Item Value Reference Range Interpretation Comments Anion Gap (test code = 43542-3) 12.1 8-16 [facility] CenterBlood Urea Czyuavcv3480-00-41 07:03:00* Test Item Value Reference Range Interpretation Comments Blood Urea Nitrogen (test code = 3094-0) 5 7-26 L [facility] CenterCreatinine2019-01-04 07:03:00* Test Item Value Reference Range Interpretation Comments Creatinine (test code = 2160-0) 0.74 0.57-1.11 [facility] CenterBUN/Creatinine Gmzuq5605-12-38 07:03:00* Test Item Value Reference Range Interpretation Comments BUN/Creatinine Ratio (test code = 3097-3) 7 6-25 [facility] CenterEstimat Glomerular Filtration Rate 2018-03-07 07:03:00* Test Item Value Reference Range Interpretation Comments Estimat Glomerular Filtration Rate (test code = 202285590) > 60 >60 Ranges were taken from the National Kidney Disease Education Program and the [facility] hospital[facility] Kidney Foundation literature.Reference ranges:60 or greater: Sacesc22-22 ( for 3 consecutive months): Chronic kidney disease 15 or less: Kidney failureConnally Memorial Medical CenterGlucose Pwccx9000-13-75 07:03:00* Test Item Value Reference Range Interpretation Comments Glucose Level (test code = CRN6185) 85 74-118 [facility] CenterCalcium Mmtcg3419-57-96 07:03:00* Test Item Value Reference Range Interpretation Comments Calcium Level (test code = 83857-9) 8.0 8.4-10.2 L [facility] CenterWhite Blood Wtaek6916-03-97 04:48:00* Test Item Value Reference Range Interpretation Comments White Blood Count (test code = 6690-2) 9.26 4.8-10.8 [facility] CenterRed Blood Oalpb5860-74-93 04:48:00* Test Item Value Reference Range Interpretation Comments Red Blood Count (test code = 789-8) 4.38 3.6-5.1 [facility] CenterHemoglobin2019-01-03 04:48:00* Test Item Value Reference Range Interpretation Comments Hemoglobin (test code = 59851-6) 13.4 12.0-16.0 [facility] CenterHematocrit2019-01-03 04:48:00* Test Item Value Reference Range Interpretation Comments Hematocrit (test code = 4544-3) 37.3 34.2-44.1 [facility] CenterMean Corpuscular Usuvzc4298-17-32 04:48:00* Test Item Value Reference Range Interpretation Comments Mean Corpuscular Volume (test code = 787-2) 85.2 81-99 [facility] CenterMean Corpuscular Tstogerhmx5508-56-61 04:48:00* Test Item Value Reference Range Interpretation Comments Mean Corpuscular Hemoglobin (test code = 785-6) 30.6 28-32 [facility] Corp[facility] Hemoglobin Concent 2018-03-06 04:48:00* Test Item Value Reference Range Interpretation Comments Mean Corpuscular Hemoglobin Concent (test code = 786-4) 35.9 31-35 H [facility] CenterRed Cell Distribution Cysoa9791-50-59 04:48:00* Test Item Value Reference Range Interpretation Comments Red Cell Distribution Width (test code = 79431-8) 12.0 11.7 -14.4 [facility] CenterPlatelet Obett0839-13-61 04:48:00* Test Item Value Reference Range Interpretation Comments Platelet Count (test code = 777-3) 157 140-360 [facility] CenterNeutrophils (%) (Auto)2018-03-06 04:48:00 * Test Item Value Reference Range Interpretation Comments Neutrophils (%) (Auto) (test code = 90698-4) 75.5 38.7-80.0 [facility] CenterLymphocytes (%) (Auto)2018-03-06 04:48:00 * Test Item Value Reference Range Interpretation Comments Lymphocytes (%) (Auto) (test code = 736-9) 13.9 18.0-39.1 L [facility] CenterMonocytes (%) (Auto)2018-03-06 04:48:00* Test Item Value Reference Range Interpretation Comments Monocytes (%) (Auto) (test code = 5905-5) 8.2 4.4-11.3 [facility] CenterEosinophils (%) (Auto)2018-03-06 04:48:00 * Test Item Value Reference Range Interpretation Comments Eosinophils (%) (Auto) (test code = 713-8) 1.4 0.0-6.0 [facility] CenterBasophils (%) (Auto)2018-03-06 04:48:00* Test Item Value Reference Range Interpretation Comments Basophils (%) (Auto) (test code = 706-2) 0.5 0.0-1.0 [facility] CenterIM GRANULOCYTES %2018-03-06 04:48:00* Test Item Value Reference Range Interpretation Comments IM GRANULOCYTES % (test code = IM GRANULOCYTES %) 0.5 0.0- 1.0 [facility] CenterNeutrophils # (Auto)2018-03-06 04:48:00* Test Item Value Reference Range Interpretation Comments Neutrophils # (Auto) (test code = 751-8) 7.0 2.1-6.9 H [facility] CenterLymphocytes # (Auto)2018-03-06 04:48:00* Test Item Value Reference Range Interpretation Comments Lymphocytes # (Auto) (test code = 61498-4) 1.3 1.0-3.2 [facility] CenterMonocytes # (Auto)2018-03-06 04:48:00* Test Item Value Reference Range Interpretation Comments Monocytes # (Auto) (test code = 742-7) 0.8 0.2-0.8 [facility] CenterEosinophils # (Auto)2018-03-06 04:48:00* Test Item Value Reference Range Interpretation Comments Eosinophils # (Auto) (test code = 711-2) 0.1 0.0-0.4 [facility] CenterBasophils # (Auto)2018-03-06 04:48:00* Test Item Value Reference Range Interpretation Comments Basophils # (Auto) (test code = 704-7) 0.1 0.0-0.1 [facility] CenterAbsolute Immature Granulocyte (auto 2018-03-06 04:48:00* Test Item Value Reference Range Interpretation Comments Absolute Immature Granulocyte (auto (dewey t code = Absolute Immature Granulocyte (auto) 0.05 0-0.1 [facility] CenterCT ABDOMEN/PELVIS [id number] 15:29:00 [facility] [address] [place] [address] Patient Name: FLAVIO FRANCOIS MR #: [id number] : [birth year] Age/Sex: 73/F Req #: [id number] Adm Physician: BRYN SOTO MD Ordered by: BRYN SOTO MD Report #: [id number] Location: ICU Room/Bed: ICU [facility] Procedure: [id number] CT/C T ABDOMEN/PELVIS W Exam Date: Exam Time: REPORT STATUS: Signed ADDENDU M #1 ADDENDUM: Dose modulation, iterative reconstruction, and/or weight based adjustment of the mA/kV was utilized to reduce the radiation dos e to as low as reasonably achievable. Signed [...] limits set by the Radiation Protocol Comm [facility] ([facility]). FINDINGS: LINES and TUBES: None. LOWER THORAX: [...] SANTORO MD Electronic ally Signed By: LIAM SANTORO MD on 03/05/18 6595 Transcribed By: SANTIAGO on 03/05 1538 COPY TO: BRYN SOTO MD Creatine Kinase [id number] 15:23:00* Test Item Value Reference Range Interpretation Comments Creatine Kinase MB (test code = 36197-2) 3.10 0-5.0 [facility] CenterTroponin R0047-83-01 15:23:00* Test Item Value Reference Range Interpretation Comments Troponin I (test code = JHU9486) 0.096 0-0.300 [facility] CenterCreatine Qjubok1991-95-96 15:15:00* Test Item Value Reference Range Interpretation Comments Creatine Kinase (test code = 2157-6) 69 29-168 [facility] Centertool Occult Vakmy3518-99-66 14:49:00* Test Item Value Reference Range Interpretation Comments Stool Occult Blood (test code = 2335-8) NEGATIVE NEGATIVE [facility] CenterTriglycerides Yoioc7848-95-33 07:17:00* Test Item Value Reference Range Interpretation Comments Triglycerides Level (test code = 2571-8) 112 0-149 [facility] CenterCholesterol Yovdf2397-49-86 07:17:00* Test Item Value Reference Range Interpretation Comments Cholesterol Level (test code = 2093-3) 132 0-199 Less than 200 mg/dL Low Wmqi974 - 239 mg/dL Borderline Enqz625 m g/dl and greater High Risk [facility] CenterLDL Kyacduvelvs7007-64-43 07:17:00* Test Item Value Reference Range Interpretation Comments LDL Cholesterol (test code = 2089-1) 73 60-130 [facility] CenterHDL Ekgyjyqcawe3471-43-62 07:17:00* Test Item Value Reference Range Interpretation Comments HDL Cholesterol (test code = 2085-9) 37 40-60 L [facility] CenterCholesterol/HDL Uaonv5239-49-41 07:17:00 * Test Item Value Reference Range Interpretation Comments Cholesterol/HDL Ratio (test code = 9830-1) 3.6 3.0-3.6 [facility] CenterCHEST SINGLE (PORTABLE)2018-03-05 06:33:00 [facility] [address] [place] [address] Patient Name: FLAVIO FRANCOIS MR #: [id number] : 1945 Age/Sex: 73/F Req #: [id number] Adm Physician: BRYN SOTO MD Ordered by: KIRSTY DE LOS SANTOS MD Report #: [id number] Location: ICU Room/Bed: ICU [facility] Procedure: [id number] DX/CHEST SINGLE (PORTABLE) Exam Date: 03/05/18 Exam Time: 0500 REPORT STATUS: Signed EXAMINATION: CHEST SINGLE (PORTABLE) COMPARISON: 03/04/2018 INDIC ATION: Chest burning. FINDINGS: TUBES and LINES: None. LUNGS: Lungs are well inflated. Lungs are clear. There is no evidence of pneumoni a or pulmonary edema. PLEURA: No pleural effusion [...] RUBY DE LOS SANTOS MD Lactic Acid [id number] 22:44:00* Test Item Value Reference Range Interpretation Comments Lactic Acid Level (test code = Lactic Acid Level) 13.3 4.5- 19.8 [facility] [id number] 18:37:00* Test Item Value Reference Range Interpretation Comments Urine WBC (test code = 5821-4) 0-5 0-5 [facility] [id number] 18:37:00* Test Item Value Reference Range Interpretation Comments Urine RBC (test code = 88650-8) 0-5 0-5 [facility] Kjhsuysz0359-67-56 18:37:00* Test Item Value Reference Range Interpretation Comments Urine Bacteria (test code = 35202-3) FEW NONE [facility] Epithelial [id number] 18:37:00 * Test Item Value Reference Range Interpretation Comments Urine Epithelial Cells (test code = 70324-9) FEW NONE [facility] Rlvdz2433-44-13 18:12:00* Test Item Value Reference Range Interpretation Comments Urine Color (test code = 5778-6) YELLOW YELLOW [facility] Bxxgjvo0362-62-01 18:12:00* Test Item Value Reference Range Interpretation Comments Urine Clarity (test code = 42234-7) CLEAR CLEAR [facility] Specific [id number] 18:12:00 * Test Item Value Reference Range Interpretation Comments Urine Specific [place] (test code = 5811-5) 1.015 1.010-1.02 5 [facility] [id number] 18:12:00* Test Item Value Reference Range Interpretation Comments Urine pH (test code = 73025-3) 6 5-7 [facility] Leukocyte [id number] 18:12:00* Test Item Value Reference Range Interpretation Comments Urine Leukocyte Esterase (test code = 5799-2) NEGATIVE NEGATIVE [facility] Vbgjsmh2206-78-25 18:12:00* Test Item Value Reference Range Interpretation Comments Urine Nitrite (test code = 70037-1) NEGATIVE NEGATIVE [facility] Gsggtqj4875-63-20 18:12:00* Test Item Value Reference Range Interpretation Comments Urine Protein (test code = 5804-0) NEGATIVE NEGATIVE [facility] Glucose (UA)2018-03-04 18:12:00* Test Item Value Reference Range Interpretation Comments Urine Glucose (UA) (test code = 2349-9) NEGATIVE NEGATIVE [facility] Lwmdknk0165-49-82 18:12:00* Test Item Value Reference Range Interpretation Comments Urine Ketones (test code = 93479-0) NEGATIVE NEGATIVE [facility] Dndnubneiimj2417-30-27 18:12:00* Test Item Value Reference Range Interpretation Comments Urine Urobilinogen (test code = 60839-4) 0.2 0.2-1 [facility] Fghbyukjw4060-24-53 18:12:00* Test Item Value Reference Range Interpretation Comments Urine Bilirubin (test code = 1978-6) NEGATIVE NEGATIVE [facility] Irtck8576-71-53 18:12:00* Test Item Value Reference Range Interpretation Comments Urine Blood (test code = 38789-8) NEGATIVE NEGATIVE [facility] Natriuretic Qhsebus7888-15-74 14:23:00* Test Item Value Reference Range Interpretation Comments B-Type Natriuretic Peptide (test code = 25654-8) 917.4 0-100 H [facility] Qlmjv8377-89-01 14:10:00* Test Item Value Reference Range Interpretation Comments Magnesium Level (test code = 35337-5) 2.2 1.3-2.1 H [facility] Ovkzsyuvp9065-71-58 14:10:00* Test Item Value Reference Range Interpretation Comments Total Bilirubin (test code = 1975-2) 0.9 0.2-1.2 [facility] Center[facility]artate Amino Transf (AST/SGOT) 2018-03-04 14:10:00* Test Item Value Reference Range Interpretation Comments Aspartate Amino Transf (AST/SGOT) (test code = Aspartate Amino Transf (AST/SGOT)) 18 5-34 [facility] CenterAl[facility] Aminotransferase (ALT/SGPT) 2018-03-04 14:10:00* Test Item Value Reference Range Interpretation Comments Alanine Aminotransferase (ALT/SGPT) (test code = 1742-6) 15 0-55 [facility] Ncpytja2577-92-17 14:10:00* Test Item Value Reference Range Interpretation Comments Total Protein (test code = 2885-2) 6.9 6.5-8.1 [facility] Center[facility]in2019-01-01 14:10:00* Test Item Value Reference Range Interpretation Comments Albumin (test code = 1751-7) 3.8 3.5-5.0 [facility] Center[facility]ulin2019-01-01 14:10:00* Test Item Value Reference Range Interpretation Comments Globulin (test code = 79362-0) 3.1 2.3-3.5 [facility] Center[facility]/Globulin Gssbx1555-17-74 14:10:00 * Test Item Value Reference Range Interpretation Comments Albumin/Globulin Ratio (test code = 1759-0) 1.2 0.8-2.0 [facility] CenterAlkaline Unzhfkshyco1819-07-00 14:10:00* Test Item Value Reference Range Interpretation Comments Alkaline Phosphatase (test code = 6768-6) 55 40-150 [facility] CenterLipase2019-01-01 14:10:00* Test Item Value Reference Range Interpretation Comments Lipase (test code = 3040-3) 26 8-78 [facility] CenterProthrombin Decr1198-47-68 14:08:00* Test Item Value Reference Range Interpretation Comments Prothrombin Time (test code = 5902-2) 13.7 11.9-14.5 [facility] CenterProthromb Time International Ratio 2018-03-04 14:08:00* Test Item Value Reference Range Interpretation Comments Prothromb Time International Ratio (test code = 6301-6) 0.96 Oral Anticoagulant Therapy INR Values:1. Low Intensity Therapy 1.5 - 2.02 . Moderate Intensity Therapy 2.0 - 3.03. High Intensity Therapy(1) 2.5 - 3. 54. High Intensity Therapy(2) 3.0 - 4.05. Panic Value INR > 5.0 [facility] CenterActivated Partial Thromboplast Time 2018-03-04 14:08:00* Test Item Value Reference Range Interpretation Comments Activated Partial Thromboplast Time (test code = 02896-2) 25.8 23.8-35.5 [facility] CenterCHEST SINGLE (PORTABLE)2018-03-04 14:03:00 [facility] [address] [address] Patient Name: FLAVIO FRANCOIS MR #: [id number] : 1945 Age/Sex: 73/F Req #: [id number] Adm Physician: Ordered by: MICHELE ZARAGOZA CUSTOMER SOLUTIONS COORDINATOR Report #: [id number] Location: ER Room/Bed: Procedure: [id number] DX/CHEST SINGLE (PORTABLE) Exam Date: 03/04/18 Exam [...] 2:04 PM Dictated By: LIAM SANTORO MD 03 Transcribed By: SANTIAGO on 03/04/181403 COPY TO: MICHELE ZARAGOZA NP CT MAX/FAC.PARANASAL SINUS [id number] 07:29:[address] [address] Patient Name: FLAVIO FRANCOIS MR #: [id number] : 1945 Age/Sex: 72/F Req #: [id number] Adm Physician: Ordered by: TEA SIU MD Report #: [id number] Location: [facility] Room/Bed: Procedure: [id number] HOPD/CT MAX/FAC.PARANAS AL SINUS WO Exam Date: 11/05/17 Exam Time: 1708 REPORT STATUS: Signed Examination: CT Face without Contrast History:Facia l injury Comparison studies: None Technique: Axial images [...] No acute facial abnormality. 2. Moderate size rig ht periorbital and premalar hematoma. A preliminary verbal report was provi ded by Dr. Herrera to Dr. Siu on November 05, 2017 at 1610 hours. Sign ed by: Dr. Trini Herrera M.D. on 11/06/2017 7:34 AM Dictated By: SHANTE GOODWIN MD 3 Transcribed By: SANTIAGO on 11/06/17733 COPY TO: TEA SIU MD CT BRAIN WH-[id number] 07:27:00 [address] [address] Patient Name: FLAVIO FRANCOIS MR #: [id number] : 1945 Age/Sex: 72/F Req #: [id number] Adm Physician: Ordered by: TEA SIU MD Report #: [id number] Location: [facility] Room/Bed: Procedure: [id number] HOPD/CT BRAIN WO-HOPD Exam Date: 11/05/17 Exam [...]
--- OUTSIDE RECORDS SUMMARY | 2020-01-11 14:22 | XMS REPORT | Continuity of Care Document ---
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 07/22/2018 [facility] Spine lumbar wo contrast MRI [place] LUMBAR SPINE WITHOUT CONTRAST 11/27/2016 1:10 PM [...] made to exam dated: 10/02/2012 mammogram - [facility]. Color flow and real-time ultrasound were [...] would be of added benefit to document half-way stability. This aids in establishing benignity. The patient should make additional efforts to locate her prior exams. An addendum will be made if additional films are provided. SL: 13. Radha josepht/penrad:10/02/2012 13:27:16 Transport Technician: Rachel Acharya [facility] letter sent: Normal exam Ultrasound BI-RADS: 2 Benign 10/02/2012 [facility] Digital Mammo DX [place] - DIGI [...] would be of added benefit to document terminal operations supervisor stability. This aids in establishing benignity. The patient should make additional efforts to locate her prior exams. An addendum will be made if additional films are provided, and the patient may need to return for additional imaging. Ultrasound will be performed at this time; please see dedicated separate report. SL: 13. Radha nazario/:10/02/2012 13:27:36 Transport Technician: Niurka Ace [facility] Mammogram BI-RADS: 0 Indeterminate 10/02/2012 [facility] Consultation Notes No Data Provided for This Section Discharge Summaries No Data Provided for This Section History and Physicals No Data Provided for This Section Vital Signs No Data Provided for This Section Encounters Location Location Details Encounter Type Encounter Number Reason For Visit Attending Provider ADM Date DC Date Status Source [facility] Outpatient [id number] LEFT BREAST PAIN . AMIR GHEBRANIOUS 10/02/2012 Active [place] [facility] - [place] Out[facility] Di[facility] [id number] 00 Chucky Asif 11/28/2016 [facility] [place] [facility] [place] [facility] [id number] Bryn Julian 07/22/2018 07/23/2018 [facility] [place] Procedures No Data Provided for This Section Assessment and Plan No Data Provided for This Section Plan of Care No Data Provided for This Section Social History Social History Date Source No data available for this section 07/23/2018 [facility] [place] No data available for this section 11/28/2016 [facility] [place] Family History No Data Provided for This Section Advance Directives No Data Provided for This Section Functional Status No Data Provided for This Section
[2020-01-11 14:27] LABS: BASOPHILS # (AUTO) 0.1 (0.0-0.1); EOSINOPHILS # (AUTO) 0.2 (0.0-0.4); EOSINOPHILS % 2.6 % (0.0-6.0); HEMATOCRIT 40.9 % (34.2-44.1); HEMOGLOBIN 12.9 g/dL (12.0-16.0); LYMPHOCYTES # (AUTO) 1.5 (1.0-3.2); LYMPHOCYTES % 18.6 % (18.0-39.1); MEAN CORPUSCULAR HEMOGLOBIN 27.7 pg (28-32); MEAN CORPUSCULAR HGB CONC 31.5 g/dL (31-35); MEAN CORPUSCULAR VOLUME 87.8 fL (81-99); MONOCYTES # (AUTO) 0.5 (0.2-0.8); MONOCYTES % 6.7 % (4.4-11.3); NEUTROPHILS # (AUTO) 5.6 (2.1-6.9); NEUTROPHILS % 70.7 % (38.7-80.0); PLATELET COUNT 221 x10e3/uL (140-360); RED BLOOD COUNT 4.66 x10e6/uL (3.6-5.1); RED CELL DISTRIBUTION WIDTH 14.6 % (11.7-14.4)
--- NOTE | 2020-01-11 14:29 | Diagnostic Imaging Report ---
TECHNIQUE: Frontal view of the chest. INDICATION: ^Y ^new onset a fib ^[id number] ^1402 COMPARISON: 03/05/2018 DISCUSSION: Limited evaluation due to portable technique. Lines and hardware: Overlying EKG leads are noted. Heart and mediastinum: Obscured Lungs and pleura: Left basilar consolidation is noted. Hazy opacities are noted at the lung bases with blunting of the costophrenic angles. Negative for large pneumothorax. Soft tissues and bones: No acute abnormality. IMPRESSION: Left basilar pneumonia. Small left and trace right pleural effusions. Recommend follow-up to resolution. Signed by: Rocky Limon MD on 01/11/2020 2:26 PM
--- NOTE | 2020-01-11 14:37 | Emergency Department Note ---
History of Present Illnes History of Present Illness Chief Complaint: General Medicine Complaints History of Present Illness This is a 74 year old female . Chief Complaint Comment Patient in from home with complaints of A-Fib with RVR as diagnosed by Dr. Soto on 01/08/2020. Patient was told to go to [place] immediately after the appointment with Dr. Soto but she did not. She chose to go home instead. Patient brought with her a script written by Dr. Soto with admit orders and consults. Patient complains of shortness of breath when ambulating as well. Historian: Patient Arrival Mode: Car Onset (how long ago): day(s) Severity: moderate Onset quality: sudden Duration (how long): day(s) Timing of current episode: constant Progression: unchanged Chronicity: new Context: Denies recent illness, Denies recent surgery (DENNIS SEARS DO) Past Medical/Family History Physician Review I have reviewed the patient's past medical and family history. Any updates have been documented here. (DENNIS SEARS DO) Past Medical History Recent Fever: No Clinical Suspicion of Infectio: No New/Unexplained Change in Ment: No Past Medical History: Hypertension, A-Fib Other Medical History: STENOSIS OF THE SPINE CKD Past Surgical History: Cholecysctectomy, Hysterectomy Other Surgery: TONSILLECTOMY RIGHT SHOULDER ROTATOR CUFF (DENNIS SEARS DO) Other Last Tetanus: UTD (DENNIS SEARS DO) Physical Exam Related Data Allergies: Coded Allergies: Sulfa (Sulfonamide Antibiotics) (Verified Allergy, Mild, 11/29/19) carisoprodol (Verified Allergy, Mild, 11/29/19) theophylline anhydrous (Verified Allergy, Mild, ANXIETY, 11/29/19) tioconazole (Verified Allergy, Unknown, BURNING/STINGING, 11/29/19) Triage Vital Signs Vital Signs Date Time Temp Pulse Resp B/P (MAP) Pulse Ox O2 Delivery O2 Flow Rate FiO2 01/11/20 13:24 97.5 151 16 137/82 98 Room Air (DENNIS SEARS, ) Physical Exam CONSTITUTIONAL HENT EYES NECK PULMONARY CARDIOVASCULAR GASTROINTESTINAL GENITOURINARY SKIN MUSCULOSKELETAL NEUROLOGICAL PSYCHOLOGICAL (DENNIS SEARS DO) Results Laboratory Lab results reviewed: Yes Laboratory comments Laboratory Tests Test 01/11/20 15:40 01/11/20 14:10 White Blood Count 7.96 x10e3/uL (4.8-10.8) Red Blood Count 4.66 x10e6/uL (3.6-5.1) Hemoglobin 12.9 g/dL (12.0-16.0) Hematocrit 40.9 % (34.2-44.1) Mean Corpuscular Volume 87.8 fL (81-99) Mean Corpuscular Hemoglobin 27.7 pg (28-32) Mean Corpuscular Hemoglobin Concent 31.5 g/dL (31-35) Red Cell Distribution Width 14.6 % (11.7-14.4) Platelet Count 221 x10e3/uL (140-360) Neutrophils (%) (Auto) 70.7 % (38.7-80.0) Lymphocytes (%) (Auto) 18.6 % (18.0-39.1) Monocytes (%) (Auto) 6.7 % (4.4-11.3) Eosinophils (%) (Auto) 2.6 % (0.0-6.0) Basophils (%) (Auto) 1.0 % (0.0-1.0) Neutrophils # (Auto) 5.6 (2.1-6.9) Lymphocytes # (Auto) 1.5 (1.0-3.2) Monocytes # (Auto) 0.5 (0.2-0.8) Eosinophils # (Auto) 0.2 (0.0-0.4) Basophils # (Auto) 0.1 (0.0-0.1) Absolute Immature Granulocyte (auto 0.03 x10e3/uL (0-0.1) Sodium Level 142 mmol/L (136-145) Potassium Level 3.7 mmol/L (3.5-5.1) Chloride Level 105 mmol/L (98-107) Carbon Dioxide Level 26 mmol/L (22-29) Anion Gap 14.7 mmol/L (8-16) Blood Urea Nitrogen 20 mg/dL (7-26) Creatinine 1.09 mg/dL (0.57-1.11) Estimat Glomerular Filtration Rate 49 ML/MIN (60-) BUN/Creatinine Ratio 18 (6-25) Glucose Level 133 mg/dL (74-118) Calcium Level 8.9 mg/dL (8.4-10.2) Total Bilirubin 0.8 mg/dL (0.2-1.2) Aspartate Amino Transf (AST/SGOT) 25 IU/L (5-34) Alanine Aminotransferase (ALT/SGPT) 26 IU/L (0-55) Alkaline Phosphatase 76 IU/L (40-150) Creatine Kinase 91 IU/L (29-168) Creatine Kinase MB 2.70 ng/mL (0-5.0) Troponin I 0.006 ng/mL (0-0.300) Total Protein 6.6 g/dL (6.5-8.1) Albumin 3.6 g/dL (3.5-5.0) Globulin 3.0 g/dL (2.3-3.5) Albumin/Globulin Ratio 1.2 (0.8-2.0) Thyroid Stimulating Hormone (TSH) 0.833 uIU/mL (0.350-4.940) Free Thyroxine Index 2.4806 (1.4-3.8) Thyroxine (T4) 7.85 ug/dL (4.5-10.9) Triiodothyronine (T3) Uptake 31.60 % (22.5-37.0) (EDNNIS SEARS DO) Imaging Imaging results reviewed: Yes (DENNIS SEARS DO) Assessment & Plan Medical Decision Making MDM aFIB w RVR The patient presented in atrial fibrillation with rapid ventricular response necessitating a broad workup and immediate intervention. Disposition: Admit Initial treatment: Diltiazem 10mg IV bolus given x2 Patient started on by mouth metoprolol for better rate control. History required hospital admission for new onset A. fib There was concerns of possible impending sepsis secondary to findings of pneumonia @ 1545. Blood cultures, lactic acid obtained Spectrum antibiotics given (DENNIS SEARS DO) Reassessment Reassessment PT ON AMIODARONE DRIP, NEEDS IMCU/ICU BED. NO BEDS AVAILABLE HERE - DR GUAJARDO WANTS PT TO GET CARDIAC ABLATION AND WANTS PT TO TRANSFER TO [facility]. DR SOTO IS OKAY WITH THIS. TRANSFER INITIATED - I SPOKE WITH DR FELIPE, [facility] THERE WHO ACCEPTS PT FOR TRANSFER (ANTONELLA HICKS MD) Assessment & Plan Final Impression: (1) Atrial fibrillation with RVR (2) Pneumonia (DENNIS SEARS DO) Depart Disposition: TRANS TO OTHER [facility] Last Vital Signs Date Time Temp Pulse Resp B/P (MAP) Pulse Ox O2 Delivery O2 Flow Rate FiO2 01/11/20 13:24 97.5 151 16 137/82 98 Room Air (DENNIS SEARS DO) Home Meds Active Scripts Pantoprazole Sodium* (PROTONIX) 40 Mg Tablet.dr, 40 MG PO Q12H for 30 Days, TAB Prov:ANABELLE SOTO MD 03/08/18 Metoprolol Succinate (TOPROL XL) 50 Mg Tab.er.24h, 150 MG PO DAILY for 30 Days Prov:ANABELLE SOTO MD 03/08/18 Duloxetine Hcl (CYMBALTA) 30 Mg Capsule.dr, 60 MG PO DAILY for 30 Days Prov:ANABELLE SOTO MD 03/08/18 Aspirin (ASPIRIN EC) 81 Mg Tablet.dr, 81 MG PO QAM for 30 Days Prov:ANABELLE SOTO MD 03/08/18 Amiodarone Hcl (AMIODARONE HCL) 200 Mg Tablet, 200 MG PO DAILY for 30 Days Prov:ANABELLE SOTO MD 03/08/18 Reported Medications Rivaroxaban (XARELTO) 20 Mg Tablet, 20 MG PO DAILY 04/10/18 Medications in the ED Aspirin 81 mg PRN ONCE PO ; Start 01/11/20 at 14:00; Stop 01/11/20 at 14:01; Status DC Diltiazem HCl 10 mg NOW STAT IV ; Start 01/11/20 at 13:50; Stop 01/11/20 at 13:56; Status DC (DENNIS SEARS DO) DENNIS SEARS DO Jan 11, 2020 14:32 ANTONELLA HICKS MD Jan 12, 2020 14:29
[2020-01-11 14:44] LABS: ALBUMIN 3.6 g/dL (3.5-5.0); ALBUMIN/GLOBULIN RATIO 1.2 (0.8-2.0); ANION GAP 14.7 mmol/L (8-16); CALCIUM 8.9 mg/dL (8.4-10.2); CREATININE, SERUM 1.09 mg/dL (0.57-1.11); POTASSIUM 3.7 mmol/L (3.5-5.1)
[2020-01-11 14:50] LABS: CREATINE KINASE MB 2.7 ng/mL (0-5.0)
--- OUTSIDE RECORDS SUMMARY | 2020-01-11 14:54 | XMS REPORT | Continuity of Care Document ---
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 07/22/2018 [facility] Spine lumbar wo contrast MRI M [place] LUMBAR SPINE WITHOUT CONTRAST 11/27/2016 1:10 PM [...] made to exam dated: 10/02/2012 mammogram - [facility]. Color flow and real-time ultrasound were [...] would be of added benefit to document skilled nursing stability. This aids in establishing benignity. The patient should make additional efforts to locate her prior exams. An addendum will be made if additional films are provided. SL: 13. Radha josepht/penrad:10/02/2012 13:27:16 Drivers' Cash Clerk: Rachel Acharya [facility] letter sent: Normal exam Ultrasound BI-RADS: 2 Benign 10/02/2012 [facility] Digital Mammo DX [place] - [...] would be of added benefit to document lobsterman stability. This aids in establishing benignity. The patient should make additional efforts to locate her prior exams. An addendum will be made if additional films are provided, and the patient may need to return for additional imaging. Ultrasound will be performed at this time; please see dedicated separate report. SL: 13. Radha nazario/:10/02/2012 13:27:36 Drivers' Cash Clerk: Niurka Ace [facility] Mammogram BI-RADS: 0 Indeterminate 10/02/2012 [facility] Consultation Notes No Data Provided for This Section Discharge Summaries No Data Provided for This Section History and Physicals No Data Provided for This Section Vital Signs No Data Provided for This Section Encounters Location Location Details Encounter Type Encounter Number Reason For Visit Attending Provider ADM Date DC Date Status Source [facility] Outpatient [id number] LEFT BREAST PAIN . AMIR GHEBRANIOUS 10/02/2012 Active [place] [facility] [place] [facility] [id number] 00 Chucky Asif 11/28/2016 [facility] [place] [facility] Out[facility] - [place] Out[facility] Di[facility] [id number] Bryn Julian 07/22/2018 07/23/2018 [facility] [place] Procedures No Data Provided for This Section Assessment and Plan No Data Provided for This Section Plan of Care No Data Provided for This Section Social History Social History Date Source No data available for this section 07/23/2018 [facility] [place] No data available for this section 11/28/2016 [facility] [place] Family History No Data Provided for This Section Advance Directives No Data Provided for This Section Functional Status No Data Provided for This Section
--- OUTSIDE RECORDS SUMMARY | 2020-01-11 14:55 | XMS REPORT | Continuity of Care Document ---
Author Author [facility] t Organization [facility] Address [address] [place] [address] Phone Unavailable Care Team Providers Care Graphite Mill Operator Name Role Phone MD BRYN SOTO PCP Alex SEARS Attphys Unavailable Maren HICKS Attphys Unavailable Fran Soto Attphys BRYN SOTO Attphys Unavailable Lorenzo SIU Attphys Unavailable Tex Asif Attphys JOANN WANG Admphys Unavailable BRYN SOTO Admphyalex Unavailable Payers Payer Name Policy Type Policy Number Effective Date Expiration Date Alex maldonado Aarp Medicare Complete [id number] 2017 00:00:00 [facility] Problems Condition Name Condition Details Condition Category Status Onset Date Resolution Date Last Treatment Date Treating Clinician Comments Source M54.16 - "RADICULOPATHY, LUMBAR REGION" M54.16 - "RADICULOPATHY, LUMBAR REGION" Active 11/21/2016 ANGEL LUIS Villagomeza Diagnosis Active 2016-11-21 00:01:00 2016-11-27 12:40:00 Juaquin Lorenzo LEFT BREAST PAIN LEFT BREAST PAIN Active 09/17/2012 [facility] Active 2012-09-17 00:00:00 2012-10-02 12:15:00 Juaquin Lorenzo Shoulder pain Problem Active [facility] SYMPTOMS IN BREAST NEC SYMP TOMS IN BREAST NEC Active [facility] Active 2012-10-02 12:15:00 M arash Lorenzo Allergies, Adverse Reactions, Alerts Allergy Name Allergy Type Status Severity Reaction(s) Onset Date Inacti ve Date Treating Clinician Comments Source theophylline anhydrous Allergy to substance Active Mild ANX IETY 2019-11-29 00:00:00 [facility] Sulfa (Sulfonamide Antibiotics) Allergy to substance Active Mild 2019-11-29 00:00:00 [facility] Carisoprodol Allergy to substance Active Mild 2019-11-29 00:00:0 0 [facility] Tioconazole Allergy to substance Active BURNING/STINGING 2019-11-29 00:00:00 [facility] theophylline DA Active SV 2018-08-27 00:00:00 [facility] DAYPRO DA Active U 2003-11-30 00:00:00 [facility] No Known Contrast Allergies DA Active U 2003-11-30 00:00: 00 [facility] No Known Food Allergies DA Active U 2003-11-30 00:00:00 [facility] No Known Other Allergies DA Active U 2003-11-30 00:00:00 [facility] TCN - TETRACYCLINE DA Active U 2003-11-30 00:00:00 [facility] tetracycline DA Active U 2001-11-25 00:00:00 [facility] Not Converted 497. See Text. DA Active U 2001-11-25 00:0 0:00 [facility] Tetrix Cream Tetrix Cream Active Juaquin Bj Social History Social Habit Start Date Stop Date Quantity Comments Source Social History 2016-11-28 04:59:00 2016-11-28 04:59:00 Juaquin Lorenzo Sex Ass[birth year] At 1945 00:00:00 1945 00:00:00 Female [facility] Medications Ordered Medication Name Filled Medication Name Start Date Stop Da te Current Medication? Ordering Clinician Indication Dosage Frequency Signature (SIG) Comments Components Source Amiodarone Hcl Amiodarone Hcl 2018-03-08 16:50:00 Yes 200 Daily [facility] Aspirin (Aspirin Ec) 81 Mg TABLET. Aspirin (Aspirin Ec) 81 Mg TABLET. 2018-03-08 16:50:00 Yes 81 Every Morning [facility] Duloxetine Hcl (Cymbalta) 30 Mg CAPSULE. Duloxetine Hcl (Cymbalta) 30 Mg CAPSULE. 2018-03-08 16:50:00 Yes 60 Daily [facility] Metoprolol Succinate (Toprol Xl) 50 Mg TAB.ER.24H Meto prolol Succinate (Toprol Xl) 50 Mg TAB.ER.24H 2018-03-08 16:50:00 Yes 150 Gloria ly [facility] Pantoprazole Sodium (Protonix) 40 Mg TABLET. Pantopr azole Sodium (Protonix) 40 Mg TABLET. 2018-03-08 16:50:00 Yes 40 Every 12 Ho urs [facility] Polyethylene Glycol 3350 (Miralax) 17 Gm POWD.PACK Raymundo yethylene Glycol 3350 (Miralax) 17 Gm POWD.PACK 2018-03-08 16:50:00 2018-04-10 00:00:00 No 17 Daily as needed for Constipation [facility] Rivaroxaban (Xarelto) 10 Mg TABLET Rivaroxaban (Xarelto) 10 Mg TABLET 2018-03-08 16:50:00 2018-04-10 00:00:00 No 20 Daily At 1700 [facility] Sennosides Sennosides 2018-03-08 16:50:00 2018-04-10 00:00:00 No 8.6 Daily as needed for Constipation [facility] Rivaroxaban (Xarelto) 20 Mg TABLET Rivaroxaban (Xarelto) 20 Mg TABLET Yes 20 Daily [facility] Amlodipine/Atorvastatin (Amlodipine-Atorvast 10-40 Mg) 1 Each TABLET Amlodipine/Atorvastatin (Amlodipine-Atorvast 10-40 Mg) 1 Each TABLET 2018-04-10 00:00:00 No Daily [facility] Citalopram Hydrobromide (Citalopram Hbr) 20 Mg TABLET Citalopram Hydrobromide (Citalopram Hbr) 20 Mg TABLET 2018-04-10 00:00:00 No 20 Daily [facility] Atenolol Atenolol 2018-03-08 00:00:00 No 50 Daily [facility] Metoprolol Tartrate Metoprolol Tartrate 2018-03-04 00:00:00 No 50 Daily [facility] Vital Signs Vital Name Observation Time Observation Value Comments Source Weight 2019-11-29 15:37:00 130 [lb_av] [facility] BMI (Body Mass Index) 2019-11-29 15:37:00 23.0 kg/m2 [facility] Procedures This patient has no known procedures. Encounters Start Date/Time End Date/Time Encounter Type Admission Type [facility] Care Department Encounter ID Source 2019-11-29 16:07:00 2019-11-29 18:00:00 Departed Emergency Room 1 ANTONELLA HICKS [facility] [id number] [facility] 2018-07-22 08:03:00 2018-07-22 23:59:00 Outpatient Mikey Soto OIB OIB [id number] 2018-03-04 18:36:00 2018-03-08 19:00:00 Discharged Inpatient 1 CHARLES BRYN [facility] [id number] [facility] 2017-11-05 16:29:00 2017-11-05 18:51:00 Departed Emergency Room 1 TEA SIU [facility] [id number] [facility] 2016-11-27 12:30:00 2016-11-27 23:59:00 Outpatient Chucky Asif [facility] [id number] Results Test Description Test Time Test Comments Results Result Comments Source CHEST SINGLE (PORTABLE) 2020-01-11 14:25:00 [facility] : 1945 Sex: F [facility] [address] [address] Patient Name: FLAVIO FRANCOIS MR #: [id number] : 1945 Age/Sex: 74/F Req #: [id number] [facility] Physician: Ordered by: DENNIS SEARS DO Report #: [id number] Location: ER Room/Bed: Procedure: [id number] DX/CHEST SINGLE (PORTABLE) Exam Date: 01/11/20 Exam Time: 1402 REPORT STATUS: Signed TECHNIQUE: Frontal view of the chest. INDICATION: Y new onset a fib [id number] COMPARISON: 03/05/2018 DISCUSSION: Limited evaluation due to portable technique. Lines and hardware: Overlying EKG leads are noted. Heart and mediastinum: Obscured Lungs and pleura: Left basilar consolidation is noted. Hazy opacities are noted at the lung bases with blunting of the costophrenic angles. Negative for large pneumothorax. Soft tissues and bones: No acute abnormality. IMPRESSION: Left basilar pneumonia. Small left and trace right pleural effusions. Recommend follow-up to resolution. Signed by: David Limon MD on 01/11/2020 2:26 PM Dictated By: DAVID LIMON MD 1426 Transcribed By: SANTIAGO on 01/11/20 1426 COPY TO: DENNIS SEARS DO DIAG MAMM BILATERAL TONEY CAD DIGITAL 2019-12-03 14:50:49 - DIAG MAMM BILATERAL TONEY CAD DIGITALBILATERAL DIGITAL DIAGNOSTIC MAMMOGRAM 3D/2D WITH CAD: 12/03/2019CLINICAL: Abnormal breast exam. Digital breast tomosynthesis was performed in addition to routine CC and MLO views. Current mammographic images were evaluated by either a DBL Ac[employer] M-Vu or a [employer] ImageGlustercker CAD (computer aided detection system). Comparison is made to exam dated 08/01/2018 mammogram - [facility]. There are scattered fibroglandular tissues in both breasts. No suspicious mass, architectural distortion, malignant type calcification, or lymph node abnormality detected. INCOMPLETE: ADDITIONAL IMAGING EVALUATION NEEDEDBilateral ultrasound pending for additional evaluation. - BREAST ULTRASOUND BILATERALULTRASOUND OF BOTH BREASTS AND BOTH AXILLA: 12/03/2019Comparison is made to exam dated 08/01/2018 mammogram - [facility] Real-time ultrasound of both breasts and both axilla and clinical breast exam were performed. No abnormalities were seen sonographically in either breast or either axilla. Clinical breast exam was unremarkable.IMPRESSION: NEGATIVE There is no sonographic evidence of malignancy. Resume annual screening mammography in one year. Mary Ellen Boothe M.D. dm/:12/03/2019 14:50:49 Entry: - 12/03/2019 14:52:38Imaging Technologist: Kathi Caruso , [facility] sent: BIRADS 1-2 Combo FU Letter Mammogram BI-RADS: 0 Incomplete: Additional Imaging Evaluation Needed Ultrasound BI-RADS: 1 Negative BREAST ULTRASOUND BILATERAL 2019-12-03 14:50:49 - DIAG MAMM BILATERAL TONEY CAD DIGITALBILATERAL DIGITAL DIAGNOSTIC MAMMOGRAM 3D/2D WITH CAD: 12/03/2019CLINICAL: Abnormal breast exam. Digital breast tomosynthesis was performed in addition to routine CC and MLO views. Current mammographic images were evaluated by either a [employer] M-Vu or a [employer] ImageChecker CAD (computer aided detection system). Comparison is made to exam dated 08/01/2018 mammogram - [facility]. There are scattered fibroglandular tissues in both breasts. No suspicious mass, architectural distortion, malignant type calcification, or lymph node abnormality detected. INCOMPLETE: ADDITIONAL IMAGING EVALUATION NEEDEDBilateral ultrasound pending for additional evaluation. - BREAST ULTRASOUND BILATERALULTRASOUND OF BOTH BREASTS AND BOTH AXILLA: 12/03/2019Comparison is made to exam dated 08/01/2018 mammogram - [facility] Real-time ultrasound of both breasts and both axilla and clinical breast exam were performed. No abnormalities were seen sonographically in either breast or either axilla. Clinical breast exam was unremarkable.IMPRESSION: NEGATIVE There is no sonographic evidence of malignancy. Resume annual screening mammography in one year. Mary Ellen Boothe M.D. dm/:12/03/2019 14:50:49 Entry: - 12/03/2019 14:52:38Imaging Technologist: Kathi Caruso , [facility] sent: BIRADS 1-2 Combo FU Letter Mammogram BI-RADS: 0 Incomplete: Additional Imaging Evaluation Needed Ultrasound BI-RADS: 1 Negative SHOULDER LEFT COMPLETE 2019-11-29 17:21:[address] [address] Patient Name: FLAVIO FRANCOIS MR #: [id number] : 1945 Age/Sex: 74/F Req #: [id number] Adm Physician: Ordered by: ANTONELLA HICKS MD Report #: [id number] Location: ER Room/Bed: Procedure: [id number] DX/SHOULDER LEFT COMPLETE Exam Date: 11/29/19 Exam [...] HICKS MD HUMERUS LEFT 2+VIEWS 2019-11-29 17:21:[address] [address] Patient Name: FLAVIO FRANCOIS MR #: [id number] : 1945 Age/Sex: 74/F Req #: [id number] Adm Physician: Ordered by: ATNONELLA HICKS MD Report #: [id number] Location: ER Room/Bed: Procedure: [id number] DX/HUMERUS LEFT 2+VIEWS Exam Date: 11/29/19 Exam [...] on 11/29/191723 COPY TO: ANTONELLA HICKS MD [facility] 2018-09-03 13:44:00 RUN DATE: 09/03/18 [facility] PAGE 1 RUN TIME: 1345 Specimen Inquiry RUN USER: INTERFACE PATIENT: FLAVIO FRANCOIS LOC: [facility] U #: [id number] AGE/SX: 73/F ROOM: RE09/01/18REG DR: Tariq Bacon : [birth year] BED: DIS: STATUS: [facility] [place] TLOC: SPEC #: [id number] RECD: 09/02/18 STATUS: MELA REQ #: [id number] MOMO: 09/01/18- SUBM DR: Tariq Bacon MD ENTERED: 09/02/18 SP TYPE: STOMACH OTHR DR: Bryn Soto MD ORDERED: GROSS COPIES TO: Tariq Bacon MD [address], [address] [place], [place] [id number] Bryn Soto MD [address] [place] [address] [email or web address] PROCEDURES: GROSS (09/03/18-1144) TISSUES: 1. DUODENUM, NOS [...] CONTINUED ON NEXT PAGE RUN DATE: 09/03/18 [facility] PAGE 2 RUN TIME: 1345 Specimen Inquiry RUN USER: INTERFACE SPEC #: [id number] PATIENT: FLAVIO FRANCOIS #[id number] (Continued) FINAL DIAGNOSIS (Continued) D [id number], 58526 MACROSCOPIC The first specimen is received in [...] tissue measuring 0.3 cm. GROSS PERFORMED AT [facility] [address] [place] [address] (p)[phone] MICROSCOPIC All of the stains, including any controls performed, stain appropriately. MICROSCOPIC PERFORMED AT [facility] [address] [place] [address] (p)[phone] PERFORMING SITE Diagnosis performed at: [facility], [address] [address] Signed SIGNATURE ON FILE Addis Alcantara MD 09/03/18 0534 END OF REPORT BASIC METABOLIC PANEL 2018-09-01 [...] CA) 8.9 mg/dL 8.5-10.1 N BASIC METABOLIC [id number] 10:04:00* Test Item Value Reference Range Interpretation [...] code = CA) mg/dL 8.5-10.1 BASIC METABOLIC [id number] 17:06:00* Test Item Value Reference Range Interpretation Comments SODIUM (test code = NA) 139 mmol/L 136-145 N POTASSIUM (test code = K) 2.5 mmol/L 3.5-5.1 Re sults called to by Sirisha.[facility] 08/27/18 1706Critical results verified and read [...] CA) 8.8 mg/dL 8.5-10.1 N CBC W/AUTO [id number] 16:52:00* Test Item Value Reference Range Interpretation [...] (test code = MDIFF) NO CBC W/AUTO [id number] 16:41:00* Test Item Value Reference Range Interpretation [...] K/mm3 0.0-0.2 SCR MAMM BILATERAL TONEY CAD [id number] 09:32:23 - SCR MAMM BILATERAL TONEY CAD DIGITALBILATERAL DIGITAL SCREENING MAMMOGRAM 3D/2D WITH CAD: 08/01/2018CLINICAL: Asymptomatic. Digital breast tomosynthesis was performed in addition to routine CC and MLO views. Current mammographic images were evaluated by either a [employer] M-Vu or a [employer] ImageChecker CAD (computer aided detection system). No [...] evidence of malignancyMahesh Francois M.D. ar/:08/20/2018 09:32:23 Hackler Doll Wigs: Niyah MONSIVAIS, [facility] sent: Additional Imaging Mammogram BI- RADS: 0 IndeterminateStool Lactoferrin (LAB)2018-03-07 13:54:00* Test Item Value Reference Range Interpretation Comments Stool Lactoferrin (LAB) (test code = 35998-4) NEGATIVE NEGATIVE Testing on stool aspirate specimens is outside plant maintenance worker claims since specime n type not validated on this assay.[facility] Clostridium Difficile Toxin A & [id number] 13:54:00* Test Item Value Reference Range Interpretation Comments Clostridium Difficile Toxin A & B (test code = 525112743) NEGATIVE NEGATIVE Testing on stool aspirate specimens is outside plant maintenance worker claims since specime n type not validated on this assay.[facility] Pihep1722-42-87 07:03:00* Test Item Value Reference Range Interpretation Comments Sodium Level (test code = 2951-2) 138 136-145 [facility] HospitalPotassium Evcvo6193-30-29 07:03:00* Test Item Value Reference Range Interpretation Comments Potassium Level (test code = 2823-3) 4.1 3.5-5.1 [facility] HospitalChloride Jigux8452-50-57 07:03:00* Test Item Value Reference Range Interpretation Comments Chloride Level (test code = 2075-0) 112 98-107 H [facility] HospitalCarbon Dioxide Fwfml3048-00-88 07:03:00* Test Item Value Reference Range Interpretation Comments Carbon Dioxide Level (test code = 2028-9) 18 22-29 L [facility] HospitalAnion Pqd0630-77-64 07:03:00* Test Item Value Reference Range Interpretation Comments Anion Gap (test code = 75948-5) 12.1 8-16 [facility] HospitalBlood Urea Ckrygdqn5159-47-52 07:03:00* Test Item Value Reference Range Interpretation Comments Blood Urea Nitrogen (test code = 3094-0) 5 7-26 L [facility] HospitalCreatinine2019-01-04 07:03:00* Test Item Value Reference Range Interpretation Comments Creatinine (test code = 2160-0) 0.74 0.57-1.11 [facility] HospitalBUN/Creatinine Cetyt9416-30-70 07:03:00* Test Item Value Reference Range Interpretation Comments BUN/Creatinine Ratio (test code = 3097-3) 7 6-25 [facility] HospitalEstimat Glomerular Filtration Rate 2018-03-07 07:03:00* Test Item Value Reference Range Interpretation Comments Estimat Glomerular Filtration Rate (test code = 214277226) > 60 >60 Ranges were taken from the National Kidney Disease Education Program and the [facility] Kidney Foundation literature.Reference ranges:60 or greater: Cegiti89-44 ( for 3 consecutive months): Chronic kidney disease 15 or less: Kidney failureMethodist Children's HospitalGlucose Lgzhd6647-01-05 07:03:00* Test Item Value Reference Range Interpretation Comments Glucose Level (test code = ZOC3413) 85 74-118 [facility] HospitalCalcium Iffeu7652-72-01 07:03:00* Test Item Value Reference Range Interpretation Comments Calcium Level (test code = 98084-9) 8.0 8.4-10.2 L [facility] HospitalWhite Blood Jxywr7196-39-76 04:48:00* Test Item Value Reference Range Interpretation Comments White Blood Count (test code = 6690-2) 9.26 4.8-10.8 [facility] HospitalRed Blood Zieth6497-45-03 04:48:00* Test Item Value Reference Range Interpretation Comments Red Blood Count (test code = 789-8) 4.38 3.6-5.1 [facility] HospitalHemoglobin2019-01-03 04:48:00* Test Item Value Reference Range Interpretation Comments Hemoglobin (test code = 64375-1) 13.4 12.0-16.0 [facility] HospitalHematocrit2019-01-03 04:48:00* Test Item Value Reference Range Interpretation Comments Hematocrit (test code = 4544-3) 37.3 34.2-44.1 [facility] HospitalMean Corpuscular Vgvmzq7482-82-12 04:48:00* Test Item Value Reference Range Interpretation Comments Mean Corpuscular Volume (test code = 787-2) 85.2 81-99 [facility] HospitalMean Corpuscular Kwofqizhuk9590-99-98 04:48:00* Test Item Value Reference Range Interpretation Comments Mean Corpuscular Hemoglobin (test code = 785-6) 30.6 28-32 [facility] HospitalMean Corpuscular Hemoglobin Concent 2018-03-06 04:48:00* Test Item Value Reference Range Interpretation Comments Mean Corpuscular Hemoglobin Concent (test code = 786-4) 35.9 31-35 H [facility] HospitalRed Cell Distribution Khjrn2664-52-12 04:48:00* Test Item Value Reference Range Interpretation Comments Red Cell Distribution Width (test code = 53150-4) 12.0 11.7 -14.4 [facility] HospitalPlatelet Esatj8216-31-09 04:48:00* Test Item Value Reference Range Interpretation Comments Platelet Count (test code = 777-3) 157 140-360 [facility] HospitalNeutrophils (%) (Auto)2018-03-06 04:48:00 * Test Item Value Reference Range Interpretation Comments Neutrophils (%) (Auto) (test code = 27809-5) 75.5 38.7-80.0 [facility] HospitalLymphocytes (%) (Auto)2018-03-06 04:48:00 * Test Item Value Reference Range Interpretation Comments Lymphocytes (%) (Auto) (test code = 736-9) 13.9 18.0-39.1 L [facility] HospitalMonocytes (%) (Auto)2018-03-06 04:48:00* Test Item Value Reference Range Interpretation Comments Monocytes (%) (Auto) (test code = 5905-5) 8.2 4.4-11.3 [facility] HospitalEosinophils (%) (Auto)2018-03-06 04:48:00 * Test Item Value Reference Range Interpretation Comments Eosinophils (%) (Auto) (test code = 713-8) 1.4 0.0-6.0 [facility] HospitalBasophils (%) (Auto)2018-03-06 04:48:00* Test Item Value Reference Range Interpretation Comments Basophils (%) (Auto) (test code = 706-2) 0.5 0.0-1.0 [facility] HospitalIM GRANULOCYTES %2018-03-06 04:48:00* Test Item Value Reference Range Interpretation Comments IM GRANULOCYTES % (test code = IM GRANULOCYTES %) 0.5 0.0- 1.0 [facility] HospitalNeutrophils # (Auto)2018-03-06 04:48:00* Test Item Value Reference Range Interpretation Comments Neutrophils # (Auto) (test code = 751-8) 7.0 2.1-6.9 H [facility] HospitalLymphocytes # (Auto)2018-03-06 04:48:00* Test Item Value Reference Range Interpretation Comments Lymphocytes # (Auto) (test code = 81568-6) 1.3 1.0-3.2 [facility] HospitalMonocytes # (Auto)2018-03-06 04:48:00* Test Item Value Reference Range Interpretation Comments Monocytes # (Auto) (test code = 742-7) 0.8 0.2-0.8 [facility] HospitalEosinophils # (Auto)2018-03-06 04:48:00* Test Item Value Reference Range Interpretation Comments Eosinophils # (Auto) (test code = 711-2) 0.1 0.0-0.4 [facility] HospitalBasophils # (Auto)2018-03-06 04:48:00* Test Item Value Reference Range Interpretation Comments Basophils # (Auto) (test code = 704-7) 0.1 0.0-0.1 [facility] HospitalAbsolute Immature Granulocyte (auto 2018-03-06 04:48:00* Test Item Value Reference Range Interpretation Comments Absolute Immature Granulocyte (auto (dewey t code = Absolute Immature Granulocyte (auto) 0.05 0-0.1 [facility] HospitalCT ABDOMEN/PELVIS [id number] 15:29:00 [facility] [address] [place] [address] Patient Name: FLAVIO FRANCOIS MR #: [id number] : [birth year] Age/Sex: 73/F Req #: [id number] Adm Physician: BRYN SOTO MD Ordered by: BRYN SOTO MD Report #: [id number] Location: ICU Room/Bed: ICU [facility] Procedure: [id number] CT/C T ABDOMEN/PELVIS W Exam Date: Exam [...] limits set by the Radiation Protocol Comm ittee ([facility]). FINDINGS: LINES and TUBES: None. LOWER THORAX: [...] Signed By: LIAM SANTORO MD on 03/05/18 6602 Transcribed By: SANTIAGO on 03/05 1538 COPY TO: BRYN SOTO MD Creatine Kinase [id number] 15:23:00* Test Item Value Reference Range Interpretation Comments Creatine Kinase MB (test code = 04969-7) 3.10 0-5.0 [facility] HospitalTroponin G0103-49-15 15:23:00* Test Item Value Reference Range Interpretation Comments Troponin I (test code = UAS4353) 0.096 0-0.300 [facility] HospitalCreatine Ituvzk9348-42-45 15:15:00* Test Item Value Reference Range Interpretation Comments Creatine Kinase (test code = 2157-6) 69 29-168 [facility] Campustool Occult Vvgiy6809-55-19 14:49:00* Test Item Value Reference Range Interpretation Comments Stool Occult Blood (test code = 2335-8) NEGATIVE NEGATIVE [facility] HospitalTriglycerides Zogpr5233-39-28 07:17:00* Test Item Value Reference Range Interpretation Comments Triglycerides Level (test code = 2571-8) 112 0-149 [facility] HospitalCholesterol Kxujx3613-13-33 07:17:00* Test Item Value Reference Range Interpretation Comments Cholesterol Level (test code = 2093-3) 132 0-199 Less than 200 mg/dL Low Ysfl643 - 239 mg/dL Borderline Gglz626 m g/dl and greater High Risk [facility] HospitalLDL Smcyudnjsvp0060-70-82 07:17:00* Test Item Value Reference Range Interpretation Comments LDL Cholesterol (test code = 2089-1) 73 60-130 [facility] HospitalHDL Emphuaywzxp0011-70-95 07:17:00* Test Item Value Reference Range Interpretation Comments HDL Cholesterol (test code = 2085-9) 37 40-60 L [facility] HospitalCholesterol/HDL Lrltj8012-28-73 07:17:00 * Test Item Value Reference Range Interpretation Comments Cholesterol/HDL Ratio (test code = 9830-1) 3.6 3.0-3.6 [facility] HospitalCHEST SINGLE (PORTABLE)2018-03-05 06:33:00 [facility] [address] [place] [address] Patient Name: FLAVIO FRANCOIS MR #: [id number] : 1945 Age/Sex: 73/F Req #: [id number] Adm Physician: BRYN SOTO MD Ordered by: KIRSTY DE LOS SANTOS MD Report #: [id number] Location: ICU Room/Bed: [address] [address] Procedure: [id number] DX/CHEST SINGLE (PORTABLE) Exam Date: 03/05/18 Exam [...] RUBY DE LOS SANTOS MD Lactic Acid Wzkul0812-94-71 22:44:00* Test Item Value Reference Range Interpretation Comments Lactic Acid Level (test code = Lactic Acid Level) 13.3 4.5- 19.8 [facility] HospitalUrine MJE7083-18-31 18:37:00* Test Item Value Reference Range Interpretation Comments Urine WBC (test code = 5821-4) 0-5 0-5 [facility] HospitalUrine [id number] 18:37:00* Test Item Value Reference Range Interpretation Comments Urine RBC (test code = 21944-4) 0-5 0-5 [facility] [id number] 18:37:00* Test Item Value Reference Range Interpretation Comments Urine Bacteria (test code = 62446-4) FEW NONE [facility] Epithelial [id number] 18:37:00 * Test Item Value Reference Range Interpretation Comments Urine Epithelial Cells (test code = 50355-3) FEW NONE [facility] [id number] 18:12:00* Test Item Value Reference Range Interpretation Comments Urine Color (test code = 5778-6) YELLOW YELLOW [facility] [id number] 18:12:00* Test Item Value Reference Range Interpretation Comments Urine Clarity (test code = 95880-8) CLEAR CLEAR [facility] Specific [id number] 18:12:00 * Test Item Value Reference Range Interpretation Comments Urine Specific [place] (test code = 5811-5) 1.015 1.010-1.02 5 [facility] [id number] 18:12:00* Test Item Value Reference Range Interpretation Comments Urine pH (test code = 37377-3) 6 5-7 [facility] Leukocyte Lwwifbsp5538-58-78 18:12:00* Test Item Value Reference Range Interpretation Comments Urine Leukocyte Esterase (test code = 5799-2) NEGATIVE NEGATIVE [facility] Ikrfjku2237-68-67 18:12:00* Test Item Value Reference Range Interpretation Comments Urine Nitrite (test code = 24082-0) NEGATIVE NEGATIVE [facility] Rdvubuu7331-05-64 18:12:00* Test Item Value Reference Range Interpretation Comments Urine Protein (test code = 5804-0) NEGATIVE NEGATIVE [facility] Glucose (UA)2018-03-04 18:12:00* Test Item Value Reference Range Interpretation Comments Urine Glucose (UA) (test code = 2349-9) NEGATIVE NEGATIVE [facility] [id number] 18:12:00* Test Item Value Reference Range Interpretation Comments Urine Ketones (test code = 35288-6) NEGATIVE NEGATIVE [facility] Xefqlxgkzzai6359-50-43 18:12:00* Test Item Value Reference Range Interpretation Comments Urine Urobilinogen (test code = 57808-3) 0.2 0.2-1 [facility] Jvvcepfar3894-73-47 18:12:00* Test Item Value Reference Range Interpretation Comments Urine Bilirubin (test code = 1978-6) NEGATIVE NEGATIVE [facility] [id number] 18:12:00* Test Item Value Reference Range Interpretation Comments Urine Blood (test code = 23448-4) NEGATIVE NEGATIVE [facility] Natriuretic [id number] 14:23:00* Test Item Value Reference Range Interpretation Comments B-Type Natriuretic Peptide (test code = 17232-1) 917.4 0-100 H [facility] [id number] 14:10:00* Test Item Value Reference Range Interpretation Comments Magnesium Level (test code = 88333-4) 2.2 1.3-2.1 H [facility] Vmgnvrgqh2101-00-23 14:10:00* Test Item Value Reference Range Interpretation Comments Total Bilirubin (test code = 1975-2) 0.9 0.2-1.2 [facility] Hospital[facility]artate Amino Transf (AST/SGOT) 2018-03-04 14:10:00* Test Item Value Reference Range Interpretation Comments Aspartate Amino Transf (AST/SGOT) (test code = Aspartate Amino Transf (AST/SGOT)) 18 5-34 [facility] HospitalAlanine Aminotransferase (ALT/SGPT) 2018-03-04 14:10:00* Test Item Value Reference Range Interpretation Comments Alanine Aminotransferase (ALT/SGPT) (test code = 1742-6) 15 0-55 [facility] Gpvzntr5295-66-33 14:10:00* Test Item Value Reference Range Interpretation Comments Total Protein (test code = 2885-2) 6.9 6.5-8.1 [facility]in2019-01-01 14:10:00* Test Item Value Reference Range Interpretation Comments Albumin (test code = 1751-7) 3.8 3.5-5.0 [facility] Hospital[facility]obulin2019-01-01 14:10:00* Test Item Value Reference Range Interpretation Comments Globulin (test code = 78002-4) 3.1 2.3-3.5 [facility]/Globulin Iivmg2859-36-89 14:10:00 * Test Item Value Reference Range Interpretation Comments Albumin/Globulin Ratio (test code = 1759-0) 1.2 0.8-2.0 [facility] HospitalAlkaline Hsjzgiwmgut7183-69-29 14:10:00* Test Item Value Reference Range Interpretation Comments Alkaline Phosphatase (test code = 6768-6) 55 40-150 [facility] HospitalLipase2019-01-01 14:10:00* Test Item Value Reference Range Interpretation Comments Lipase (test code = 3040-3) 26 8-78 [facility] HospitalProthrombin [id number] 14:08:00* Test Item Value Reference Range Interpretation Comments Prothrombin Time (test code = 5902-2) 13.7 11.9-14.5 [facility] HospitalProthromb Time International Ratio 2018-03-04 14:08:00* Test Item Value Reference Range Interpretation Comments Prothromb Time International Ratio (test code = 6301-6) 0.96 Oral Anticoagulant Therapy INR Values:1. Low Intensity Therapy 1.5 - 2.02 . Moderate Intensity Therapy 2.0 - 3.03. High Intensity Therapy(1) 2.5 - 3. 54. High Intensity Therapy(2) 3.0 - 4.05. Panic Value INR > 5.0 [facility] HospitalActivated Partial Thromboplast Time 2018-03-04 14:08:00* Test Item Value Reference Range Interpretation Comments Activated Partial Thromboplast Time (test code = 51653-7) 25.8 23.8-35.5 [facility] HospitalCHE[facility] SINGLE (PORTABLE)2018-03-04 14:03:00 [place] [address] Patient Name: FLAVIO FRANCOIS MR #: [id number] : 1945 Age/Sex: 73/F Req #: [id number] Adm Physician: Ordered by: MICHELE ZARAGOZA NP Report #: [id number] Location: ER Room/Bed: Procedure: [id number] DX/CHEST SINGLE (PORTABLE) Exam Date: 03/04/18 Exam [...] TO: MICHELE ZARAGOZA NP CT MAX/FAC.PARANASAL SINUS [id number] 07:29:00 [place] [address] Patient Name: FLAVIO FRANCOIS MR #: [id number] : 1945 Age/Sex: 72/F Req #: [id number] Adm Physician: Ordered by: TEA SIU MD Report #: [id number] Location: [facility] Room/Bed: Procedure: [id number] HOPD/CT MAX/FAC.PARANAS AL SINUS WO Exam Date: [...] COPY TO: TEA SIU MD CT BRAIN [id number] 07:27:00 [place] [address] Patient Name: FLAVIO FRANCOIS MR #: [id number] : 1945 Age/Sex: 72/F Req #: [id number] Adm Physician: Ordered by: TEA SIU MD Report #: [id number] Location: [facility] Room/Bed: Procedure: [id number] HOPD/CT BRAIN WO-HOPD Exam Date: 11/05/17 Exam [...]
[2020-01-11 15:24] LABS: FREE THYROXINE INDEX 2.4806 (1.4-3.8); THYROID STIMULATING HORMONE 0.833 uIU/mL (0.350-4.940)
[2020-01-11] MEDS ORDERED: METOPROLOL TARTRATE 25 MG TAB PO ONE (16:00)
[2020-01-11] MEDS ORDERED: CEFEPIME 1GM/NS 0.9% 50 ML 50 ML IV SCH (16:20)
[2020-01-11] MEDS ORDERED: AZITHROMYCIN 500MG/NS 250 ML 250 ML IV SCH (17:00)
[2020-01-11] MEDS ORDERED: AMIODARONE HCL 900 MG in DEXTROSE 5% 500ML 500 ML IV SCH (18:30)
[2020-01-11] MEDS ORDERED: AMIODARONE HCL 150MG 100 ML IV ONE (18:30)
[2020-01-11] MEDS ORDERED: AMIODARONE HCL 900 MG in DEXTROSE 5 % 500ML BOTTLE 500 ML IV SCH (18:45)
[2020-01-11] MEDS ORDERED: AMIODARONE HCL 150 MG in DEXTROSE 5% 100ML 100 ML IV SCH (18:50)
--- NOTE | 2020-01-11 20:30 | NUR ---
Patient was made aware that the room assignment given has been change d/t her on a Amio drip & will not get an ICU/IMCU bed either at this time since we are in saturation. Pt was given an option to be transferred to [facility] but pt refused to be moved to [facility] because unable to drive all the way to [facility].
--- NOTE | 2020-01-11 21:05 | NUR ---
Pt place to regular hospital bed at this time.
[2020-01-11] MEDS ORDERED: LORAZEPAM INJ 2 MG/ML VIAL ONE (23:04)
--- NOTE | 2020-01-12 00:35 | NUR ---
Patient was very anxious & hyperventilating states she is scared & can't breath. Pt V/S per hot worker.
[2020-01-12] MEDS ORDERED: LORAZEPAM INJ 2 MG/ML VIAL IV ONE (00:45)
--- NOTE | 2020-01-12 01:37 | NUR ---
Patient comfortably asleep on bed, VSS.
--- NOTE | 2020-01-12 02:20 | NUR ---
Amio drip reduce rate to 16 mls/hr
[2020-01-12 04:04] LABS: BASOPHILS # (AUTO) 0.1 (0.0-0.1); BASOPHILS % 0.6 % (0.0-1.0); EOSINOPHILS % 0.3 % (0.0-6.0); HEMATOCRIT 40.3 % (34.2-44.1); HEMOGLOBIN 12.6 g/dL (12.0-16.0); LYMPHOCYTES # (AUTO) 1.1 (1.0-3.2); LYMPHOCYTES % 9.5 % (18.0-39.1); MEAN CORPUSCULAR HEMOGLOBIN 27.7 pg (28-32); MEAN CORPUSCULAR HGB CONC 31.3 g/dL (31-35); MEAN CORPUSCULAR VOLUME 88.6 fL (81-99); MONOCYTES # (AUTO) 0.6 (0.2-0.8); MONOCYTES % 5.4 % (4.4-11.3); NEUTROPHILS # (AUTO) 9.5 (2.1-6.9); NEUTROPHILS % 83.6 % (38.7-80.0); PLATELET COUNT 241 x10e3/uL (140-360); RED BLOOD COUNT 4.55 x10e6/uL (3.6-5.1); RED CELL DISTRIBUTION WIDTH 14.6 % (11.7-14.4)
[2020-01-12 04:22] LABS: CREATINE KINASE MB 3.7 ng/mL (0-5.0)
[2020-01-12 04:37] LABS: ALBUMIN 3.4 g/dL (3.5-5.0); ALBUMIN/GLOBULIN RATIO 1.1 (0.8-2.0); ANION GAP 15.8 mmol/L (8-16); CALCIUM 8.6 mg/dL (8.4-10.2); CHOL/HDL RATIO 3.4 (3.0-3.6); CREATININE, SERUM 1.39 mg/dL (0.57-1.11); POTASSIUM 4.8 mmol/L (3.5-5.1)
--- NOTE | 2020-01-12 06:19 | NUR ---
H&P PCP: Anabelle Stoo MD, PhD. cc: rapid heart rate and SOB HPI: 74yoF, who presented to clinic last [place] with LECHUGA, found to be in A.fib with RVR, sent to ED for direct admission, but decided to go home, now presents with continued symptoms. PAST MEDICAL HISTORY: Hypertension, atrial fibrillation, spinal stenosis, diverticulosis, colitis, colonic polyps, status post polypectomy, IBS, IBS. PAST SURGICAL HISTORY: Polypectomy, cholecystectomy, hysterectomy, right shoulder rotator cuff repair, tonsillectomy. ALLERGIES: PER ELECTRONIC MEDICAL RECORD. SOCIAL HISTORY: The patient is . No alcohol, illicit or cigarettes. MEDICATIONS: Per electronic medical record. REVIEW OF SYSTEMS: Denies any fever, chills or sweats. Denies any nausea or vomiting. Denies any headache, vision change, or skin rash. PHYSICAL EXAMINATION VITAL SIGNS: Reviewed. GENERAL: A tired appearing woman, resting in bed. HEENT: Anicteric. Pupils reactive to light. No oral lesions. CARDIOVASCULAR: Normal S1, S2. Rapid heart rate. LUNGS: Reduced BS ABDOMEN: Soft, nondistended. She has mild tenderness in left lower quadrant. No rebound or guarding. EXTREMITIES: No edema or calf tenderness. NEUROLOGICAL: Alert and oriented times 3. Moving all extremities. SKIN: Dry. PSYCHIATRY: Normal affect. LABS: Reviewed. MEDICATIONS: Reviewed. ASSESSMENT: This is a 74-year-old woman with: A.fib with RVR- AV blockade with amio + BB Left PNA- IV abx B/L Pleural effusion- small; HTN- BB IBS- supportive Prop: AC; ppi DIspo: ANABELLE SOTO MD PHD.
[2020-01-12] MEDS ORDERED: ONDANSETRON HCL INJ 2MG/ML 2ML 2 MG/ML VIAL IV PRN (06:30)
[2020-01-12] MEDS ORDERED: DOCUSATE SODIUM 100 MG CAP PO PRN (06:30)
[2020-01-12] MEDS ORDERED: ZOLPIDEM TARTRATE 5 MG TAB PO PRN (06:30)
[2020-01-12] MEDS ORDERED: PANTOPRAZOLE SOD 40 MG TABEC PO SCH (06:30)
[2020-01-12] MEDS ORDERED: ACETAMINOPHEN 325 MG TAB PO PRN (06:30)
--- NOTE | 2020-01-12 08:21 | NUR ---
DAUGHTER CAME TO SEE PATIENT AND DROP OFF SOME PERSONAL BELONGINGS. CONTACT INFO LEFT. KAITLIN
[2020-01-12] MEDS ORDERED: METOPROLOL SUCCINATE 50 MG TAB XL PO SCH (09:00)
[2020-01-12] MEDS ORDERED: DULOXETINE HCL 30 MG DELAYED RELEASE PO SCH (09:00)
[2020-01-12] MEDS ORDERED: DIGOXIN INJ 0.25 MG/ML 2 ML AMP IV ONE ×2 (10:45)
[2020-01-12 10:46] LABS: CREATINE KINASE MB 4.1 ng/mL (0-5.0)
--- NOTE | 2020-01-12 13:10 | Consultation ---
DATE OF CONSULTATION: Cardiology Consultation REASON FOR CONSULTATION: Atrial fibrillation. HISTORY OF PRESENT ILLNESS: This is a 74-year-old woman with a history of paroxysmal atrial fibrillation with prior transesophageal echocardiography-guided direct current cardioversion, on anticoagulation, hypertension, who presented to the emergency department with progressively worsening shortness of breath. Last Saturday, she was told to go to [facility] Emergency Department for atrial fibrillation with rapid ventricular response and respiratory failure, however, the patient did not choose to do so and returned home. Over the course of the weekend, she became progressively short of breath associated with a pressure on her chest. No typical angina or syncopal events. Her symptoms were wkqxoyfr-jn-jownvh in intensity, progressively worsening, occurred at rest, worse with exertion. No other exacerbating or relieving factors. Upon arrival here, she was noted to be in atrial fibrillation with rapid ventricular response and started on amiodarone infusion. PAST MEDICAL HISTORY: As stated above. PAST SURGICAL HISTORY: Cholecystectomy, hysterectomy, and tonsillectomy. FAMILY HISTORY: Noncontributory to current illness. SOCIAL HISTORY: No illicit drug, alcohol, or tobacco use. ALLERGIES: MULTIPLE, SEE CHART. MEDICATIONS: See medication reconciliation form. PHYSICAL EXAMINATION: VITAL SIGNS: Temperature is 97.9, heart rate ranges from 104 to 112, respiratory rate is 18, blood pressure is 147/103, and oxygen saturation 97% on 2 L nasal cannula. GENERAL: She is an elderly woman, lying comfortably in bed, in no apparent distress. Alert and oriented x3. HEAD: Normocephalic. Has a bruise over her right lower chin. EYES: The extraocular muscles are intact. Conjunctivae clear. NECK: No JVD. No bruits. CARDIOVASCULAR: She is irregularly irregular, tachycardic. No murmurs. LUNGS: Diminished breath sounds at bases. ABDOMEN: Soft, nontender, and nondistended. EXTREMITIES: No clubbing, cyanosis, or edema. VASCULAR: 2+ pulses. SKIN: Warm, dry, and intact. NEUROLOGIC: No focal deficits noted. Cranial nerves grossly intact. PSYCHIATRIC: Normal mood and affect. RADIOGRAPHIC DATA: Chest x-ray shows left basilar pneumonia, small left and trace right pleural effusions. LABORATORY DATA: Reviewed. Hemoglobin 12. Creatinine 1.39. Troponin normal x3. A 12-lead electrocardiogram showed atrial fibrillation with rapid ventricular response. Recent stress test on December 31, 2019, showed normal myocardial perfusion with calculated ejection fraction of 41, however, the patient was noted to be tachycardic. IMPRESSION: 1. Atrial fibrillation with rapid ventricular response. 2. Respiratory failure with hypoxia. 3. Pneumonia. 4. Pleural effusions. 5. Hypertension. 6. Chronic kidney disease. RECOMMENDATIONS: Continue amiodarone infusion. Continue metoprolol p.o. An IV dose of digoxin will be given. The patient has recurrent episodes of atrial fibrillation with rapid ventricular response. Continue anticoagulation. The patient will need pulmonary vein isolation for her recurrent episodes of atrial fibrillation, which have become progressively symptomatic. She has already had one cardioversion in the past. DO DHIRAJ Cerrato/ALE /[id number]
[2020-01-12] MEDS ORDERED: RIVAROXABAN 20 MG TABLET PO SCH (17:00)
--- NOTE | 2020-01-14 04:52 | NUR ---
D/C summary Principal dx: A.fib with RVR- AV blockade with amio + BB Left PNA- IV abx B/L Pleural effusion- small; HTN- BB IBS- supportive Prop: AC; ppi DIspo: transfer to [facility] for ablation stable d/c>35mins f/u cardiology later today. ANABELLE SOTO MD PHD.
== END 2020-01-12 16:52 | disposition other institution (70) ==
LOC: ER 14:20 → ERHOLD 14:29 → UNDOADMOB 14:29 → OBSVTOIN 01-12 11:14 → INTOOBSV 01-12 11:14 → ER 01-12 16:52
DX: I48.20 Chronic atrial fibrillation, unspecified (principal); J18.9 Pneumonia, unspecified organism; I10 Essential (primary) hypertension; N18.9 Chronic kidney disease, unspecified; Z11.59 Encounter for screening for other viral diseases
CPT/HCPCS: 36415; 71045; 80053; 80061; 82550; 82553; 83605; 84436; 84443; 84479; 84484; 85025; 87040; 93005; 97161; 97530; 99284; J0282; J0456; J0692; J1160; J2060; S0164; U0002

== ENCOUNTER 2021-11-21 12:52 | Emergency (ER) | payer OTHER ==
[~2021-11-21] VITALS: Ht 160 cm; Wt 59.0 kg
[2021-11-21] MEDS ORDERED: HYDROCODON-ACE1 EA11 PO (17:27)
[2021-11-21] MEDS ORDERED: COLACE100 M1 PO (17:27)
[2021-11-21 18:02] VITALS: BP 105/53
== END 2021-11-21 17:38 | disposition home or self-care (01) ==
LOC: ER 13:16
DX: S70.11XA Contusion of right thigh, initial encounter (principal); M25.551 Pain in right hip; W01.0XXA Fall on same level from slipping, tripping and stumbling without subsequent striking against object, initial encounter; Y93.01 Activity, walking, marching and hiking; Y92.89 Other specified places as the place of occurrence of the external cause; I10 Essential (primary) hypertension; I48.91 Unspecified atrial fibrillation
CPT/HCPCS: 70450; 72125; 72192; 99283

== ENCOUNTER 2022-05-02 11:10 | Emergency (ER) | payer OTHER ==
[~2022-05-02] VITALS: Ht 160 cm; Wt 59.0 kg
[~2022-05-02 11:10] MED LIST changes: +COLACE100 M1 PO; +HYDROCODON-ACE1 EA11 PO
[2022-05-02] MEDS ORDERED: KETOROLAC TROMETHAMINE 30 MG/ML VIAL IM STA (11:59)
[2022-05-02] MEDS ORDERED: NAPROXEN250 MG PO (13:08)
== END 2022-05-02 14:35 | disposition home or self-care (01) ==
LOC: ER 11:20
DX: M25.511 Pain in right shoulder (principal); W01.0XXA Fall on same level from slipping, tripping and stumbling without subsequent striking against object, initial encounter; Y93.01 Activity, walking, marching and hiking; Y92.89 Other specified places as the place of occurrence of the external cause; I12.9 Hypertensive chronic kidney disease with stage 1 through stage 4 chronic kidney disease, or unspecified chronic kidney disease; N18.9 Chronic kidney disease, unspecified; I48.91 Unspecified atrial fibrillation; R07.81 Pleurodynia
CPT/HCPCS: 70450; 71111; 93005; 99284; J1885

== ENCOUNTER 2022-09-03 11:15 | Emergency (ER) | payer OTHER ==
[~2022-09-03] VITALS: Ht 160 cm; Wt 59.0 kg
[~2022-09-03 11:15] MED LIST changes: +NAPROXEN250 MG PO
[2022-09-03 11:20] VITALS: O2SAT 100
[2022-09-03] MEDS ORDERED: SODIUM CHLORIDE 0.9% 1000ML 1,000 ML IV ONE (11:45)
[2022-09-03 12:02] LABS: BASOPHILS # (AUTO) 0.1 (0.0-0.1); BASOPHILS % 0.7 % (0.0-1.0); EOSINOPHILS # (AUTO) 0.3 (0.0-0.4); EOSINOPHILS % 4.4 % (0.0-6.0); HEMATOCRIT 39.3 % (34.2-44.1); LYMPHOCYTES # (AUTO) 1.1 (1.0-3.2); MEAN CORPUSCULAR HEMOGLOBIN 29.5 pg (28-32); MEAN CORPUSCULAR HGB CONC 33.1 g/dL (31-35); MEAN CORPUSCULAR VOLUME 89.3 fL (81-99); MONOCYTES # (AUTO) 0.5 (0.2-0.8); MONOCYTES % 7.5 % (4.4-11.3); NEUTROPHILS # (AUTO) 4.8 (2.1-6.9); NEUTROPHILS % 71.1 % (38.7-80.0); PLATELET COUNT 184 x10e3/uL (140-360); RED CELL DISTRIBUTION WIDTH 14.2 % (11.7-14.4)
[2022-09-03 12:19] LABS: ALBUMIN 3.5 g/dL (3.5-5.0); ALBUMIN/GLOBULIN RATIO 1.1 (0.8-2.0); ANION GAP 12.9 mmol/L (8-16); CALCIUM 8.7 mg/dL (8.4-10.2); CREATININE, SERUM 1.68 mg/dL (0.57-1.11); POTASSIUM 2.9 mmol/L (3.5-5.1)
[2022-09-03] MEDS ORDERED: POTASSIUM CHLORIDE 20 MEQ TAB CR PO STA (12:32)
== END 2022-09-03 12:55 | disposition home or self-care (01) ==
LOC: ER 11:21
DX: K52.9 Noninfective gastroenteritis and colitis, unspecified (principal); I12.9 Hypertensive chronic kidney disease with stage 1 through stage 4 chronic kidney disease, or unspecified chronic kidney disease; N18.9 Chronic kidney disease, unspecified; I48.91 Unspecified atrial fibrillation
CPT/HCPCS: 36415; 80053; 85025; 99283; J7030